=== PATIENT | male | born 1965 | race Caucasian/White ===

== ENCOUNTER → 2016-09-18 | Outpatient (CLI) | payer BC ==
[~2016-09-18] MED LIST: ALBU18002 INH; ALL180 PO; AMLO-110 PO; ANDROGEL EXT; ASPEC81 PO; ASPI81TA21 PO; ASPI81TA28 PO; CETI10TA84 PO; CHOL2000 PO; COEN1CAP28 PO; CZR50 PO; DILT-115 PO; FARXIGA PO; INSPMPNVLG; INSULIN PUMP; LEVO125T5 PO; LEVO150T9 PO; LEVO200T PO; LOSA1TAB38 PO; MISCCAP80 PO; MOME50SP5; MULT-506 PO; MULTTAB58 PO; PHEN15CA PO; PRAV20TA PO; PRVC10 PO; SIMV5TAB2 PO; SYNUNK PO; TRIA1SPR4 NAE; TRIA37.5 PO; VALS320T PO; VITACAP37 PO; VITAMIN PO
[2016-09-18 17:20] LABS: CHOLESTEROL/HDL RATIO 2.3
[2016-09-18 17:26] LABS: THYROID STIMULATING HORMONE 3.55 uIu/ml (0.300-4.500)
[2016-09-19 06:44] LABS: ESTIMATED AVERAGE GLUCOSE 137 mg/dl; HA1C FLAG Normal (Normal)
== END | disposition home or self-care (01) ==
LOC: C.LAB1850 15:36
PROVIDERS: ATTEND Internal Medicine
DX: E03.9 Hypothyroidism, unspecified (principal); E10.9 Type 1 diabetes mellitus without complications; E78.5 Hyperlipidemia, unspecified

== ENCOUNTER → 2016-10-17 | Outpatient (CLI) | payer BC ==
[~2016-10-17] MED LIST changes: +LEVO125T4 PO; -LEVO125T5 PO; -PHEN15CA PO; +PHEN1CAP PO
[2016-10-17 13:04] LABS: BLOOD UREA NITROGEN 16 mg/dl (7-18); BUN/CREATININE RATIO 9.2 (10-20); CALCIUM 9.5 mg/dl (8.5-10.1); CARBON DIOXIDE 27 mmol/L (21-32); CHLORIDE 84 mmol/L (98-107); GLUCOSE 192 mg/dl (70-99); POTASSIUM 5.1 mmol/L (3.5-5.1); SODIUM 121 mmol/L (136-145)
== END | disposition home or self-care (01) ==
LOC: C.LABBFT 10:39
PROVIDERS: ATTEND Internal Medicine
DX: I10 Essential (primary) hypertension (principal)

== ENCOUNTER 2016-10-20 14:48 | Inpatient (IN) | payer BC ==
[~2016-10-20] VITALS: Ht 177.8 cm; Wt 129.4 kg
[~2016-10-20 14:48] MED LIST changes: -ALBU18002 INH; -ASPI81TA21 PO; -ASPI81TA28 PO; -CETI10TA84 PO; -CHOL2000 PO; -COEN1CAP28 PO; -DILT-115 PO; -FARXIGA PO; -INSPMPNVLG; -LEVO125T4 PO; -LEVO150T9 PO; -LEVO200T PO; -LOSA1TAB38 PO; -MISCCAP80 PO; -MULTTAB58 PO; -PHEN1CAP PO; -PRAV20TA PO; -PRVC10 PO; -TRIA1SPR4 NAE; -TRIA37.5 PO; -VALS320T PO; -VITACAP37 PO; -VITAMIN PO
[2016-10-20] MEDS ORDERED: SODIUM CHLORIDE 0.9% 1000ML 1,000 ML IV STA (15:37)
--- NOTE | 2016-10-20 15:47 | EMERGENCY ROOM VISIT NOTE ---
History Report prepared by Anuradha: Linda Mitchell Under the Supervision of: Dr. Elton Morales D.O. First contact with patient: 15:29 Chief Complaint: ABNORMAL LABS Stated Complaint: LOW SODIUM LEVELS TOLD TO REPORT TO ER History of Present Illness The patient is a 51 year old male who presents to the Emergency Room with complaints of persistent, worsening abnormal labs that were drawn Thursday and then repeated today. He currently rates his discomfort as an 8/10 in severity. The patient states that Thursday he had routine blood work ordered by Dr. Jimenez. He states that he was instructed to have his blood work redrawn today because his labs showed hyponatremia. The patient states that his Sodium level was 117 on Thursday and 6 today. He notes chronic lymphedema to his bilateral lower extremities. The patient states that Dr. Jimenez recently doubled his blood pressure medication that has a diuretic in it. He notes a history of insulin dependent diabetes. The patient denies any headache, shortness of breath, chest pain, nausea or vomiting. Source of History: patient Onset: today Position: other (global) Symptom Intensity: 8/10 Quality: other (abnormal labs) Timing: worsening, other (persistent) Associated Symptoms: No SOB, No chest pain, No headache, No nausea, No vomiting Note: Associated Symptoms: increase in blood pressure medications. Review of Systems See HPI for pertinent positives & negatives. A total of 10 systems reviewed and were otherwise negative. Past Medical & Surgical Medical Problems: (1) PEPE, hyponatremia (2) Diabetes (3) Heart disease Surgical Problems: (1) S/P cholecystectomy (2) S/P hernia repair (3) Status post hernia repair Family History Cancer Diabetes mellitus Hypertension Social History Smoking Status: Never Smoker Smokeless Tobacco Use: No Alcohol Use: occasionally Marital Status: Housing Status: lives with significant other Occupation Status: employed Current/Historical Medications Scheduled Aspirin (Aspirin Ec), 81 MG PO DAILY Aspirin Enteric Coated (Ecotrin Or Generic), 81 MG PO DAILY Cetirizine (Zyrtec), 10 MG PO DAILY Cholecalciferol (Vitamin D3), 2,000 UNITS PO DAILY Coenzyme Q10 (Ubidecarenone) (Co Q10), 100 MG PO DAILY Diltiazem Hcl Ext Rel (Tiazac), 240 MG PO QAM Insulin Aspart (novoLOG INSULIN PUMP ), 1 EA N/A UD Levothyroxine Sodium (Levothyroxine Sodium), 300 MCG PO DAILY Multivitamin (Multivitamin), 1 TAB PO DAILY Phentermine Hcl (Phentermine Hcl), 1 CAP PO DAILY Pravastatin (Pravachol ), 20 MG PO DAILY Probiotic Product (Probiotic), 1 CAP PO DAILY Triamterene/Hctz (Dyazide 37.5MG/25MG), 2 CAP PO DAILY Valsartan (Diovan), 320 MG PO DAILY Vitamin E (E-400), 400 UNITS PO DAILY Scheduled PRN Triamcinolone Acetonide (Nasal (Nasacort Allergy 24Hr), 2 SPRAYS PERLA DAILY PRN for ALLERGIC REACTION Allergies Coded Allergies: Penicillins (Verified Allergy, Intermediate, FACIAL RASH, 10/20/16) Physical Exam Vital Signs Date Time Temp Pulse Resp B/P Pulse Ox O2 Delivery O2 Flow Rate FiO2 10/20/16 18:09 85 23 151/78 96 Room Air 10/20/16 16:50 84 18 169/87 98 Room Air 10/20/16 16:22 88 10/20/16 14:58 37.1 87 18 149/83 100 Room Air Physical Exam GENERAL: Patient is awake, alert, and in no acute distress. Patient is resting comfortably and showing no signs of anxiety EYES: The conjunctivae are clear. The pupils are round and reactive. EARS, NOSE, MOUTH AND THROAT: The nose is without any evidence of any deformity. Mucous membranes are moist tongue is midline NECK: The neck is nontender and supple. RESPIRATORY: Normal respiratory effort is noted there is no evidence of wheezing rhonchi or rales CARDIOVASCULAR: Regular rate and rhythm noted there no murmurs rubs or gallops normal S1 normal S2 GASTROINTESTINAL: The abdomen is soft. Bowel sounds are present in all quadrants. Abdomen is nontender MUSCULOSKELETAL/EXTREMITIES: There is no evidence of gross deformity full range of motion is noted in the hips and shoulders SKIN: There is no obvious evidence of any rash. There are no petechiae, pallor or cyanosis noted. NEUROLOGIC: Patient is awake alert and oriented x3 strength is symmetric patellar reflexes are 2+ bilaterally. Patellar tendon reflexes are 1+ bilaterally. Medical Decision & Procedures ER Provider Diagnostic Interpretation: X-ray results as stated below per interpretation by me and the radiologist. CHEST ONE VIEW PORTABLE CLINICAL HISTORY: abnormal labs COMPARISON STUDY: 02/19/2016 FINDINGS: The cardiac and mediastinal contours are normal. There is no evidence of focal pulmonary consolidation. There is no evidence of failure. No pleural effusions are visualized.[ IMPRESSION: No active disease in the chest. Electronically signed by: Woo Ritchie M.D. 10/20/2016 4:08 PM Dictated Date/Time: 10/20/2016 4:08 PM Laboratory Results 10/20/16 15:53 Red Blood Count 3.77, Mean Corpuscular Volume 96.6, Mean Corpuscular Hemoglobin 36.9, Mean Corpuscular Hemoglobin Concent 38.2, Mean Platelet Volume 9.0, Neutrophils (%) (Auto) 67.3, Lymphocytes (%) (Auto) 17.5, Monocytes (%) (Auto) 13.4, Eosinophils (%) (Auto) 1.2, Basophils (%) (Auto) 0.4, Neutrophils # (Auto ) 6.29, Lymphocytes # (Auto) 1.64, Monocytes # (Auto) 1.25, Eosinophils # (Auto ) 0.11, Basophils # (Auto) 0.04 10/20/16 15:53 Test 10/20/16 15:53 10/20/16 16:45 10/20/16 17:05 White Blood Count 9.35 K/uL (4.8-10.8) Red Blood Count 3.77 M/uL (4.7-6.1) Hemoglobin 13.9 g/dL (14.0-18.0) Hematocrit 36.4 % (42-52) Mean Corpuscular Volume 96.6 fL (80-100) Mean Corpuscular Hemoglobin 36.9 pg (25-34) Mean Corpuscular Hemoglobin Concent 38.2 g/dl (32-36) Platelet Count 237 K/uL (130-400) Mean Platelet Volume 9.0 fL (7.4-10.4) Neutrophils (%) (Auto) 67.3 % Lymphocytes (%) (Auto) 17.5 % Monocytes (%) (Auto) 13.4 % Eosinophils (%) (Auto) 1.2 % Basophils (%) (Auto) 0.4 % Neutrophils # (Auto) 6.29 K/uL (1.4-6.5) Lymphocytes # (Auto) 1.64 K/uL (1.2-3.4) Monocytes # (Auto) 1.25 K/uL (0.11-0.59) Eosinophils # (Auto) 0.11 K/uL (0-0.5) Basophils # (Auto) 0.04 K/uL (0-0.2) RDW Standard Deviation 41.8 fL (36.4-46.3) RDW Coefficient of Variation 11.9 % (11.5-14.5) Immature Granulocyte % (Auto) 0.2 % Immature Granulocyte # (Auto) 0.02 K/uL (0.00-0.02) Red Blood Cell Morphology Unremarkable Anion Gap 12.0 mmol/L (3-11) Est Creatinine Clear Calc Drug Dose 70.3 ml/min Estimated GFR () 53.3 Estimated GFR (Non- 46.0 BUN/Creatinine Ratio 8.5 (10-20) Calcium Level 9.3 mg/dl (8.5-10.1) Total Bilirubin 1.0 mg/dl (0.2-1) Aspartate Amino Transf (AST/SGOT) 183 U/L (15-37) Alanine Aminotransferase (ALT/SGPT) 142 U/L (12-78) Alkaline Phosphatase 166 U/L (45-117) Total Creatine Kinase 115 U/L (39-308) Creatine Kinase MB 1.5 ng/ml (0.5-3.6) Creatine Kinase MB Ratio 1.3 (0-3.0) Troponin I < 0.015 ng/ml (0-0.045) Total Protein 8.0 gm/dl (6.4-8.2) Albumin 4.0 gm/dl (3.4-5.0) Lipase 147 U/L (73-393) Thyroid Stimulating Hormone (TSH) 0.083 uIu/ml (0.300-4.500) Free Thyroxine 2.52 ng/dl (0.80-1.60) Chemistry Specimen Hemolysis Prothrombin Time 11.8 SECONDS (9.0-12.0) Prothromb Time International Ratio 1.1 (0.9-1.1) Activated Partial Thromboplast Time 27.8 SECONDS (21.0-31.0) Partial Thromboplastin Ratio 1.1 Direct Bilirubin 0.4 mg/dl (0-0.2) Urine Color YELLOW Urine Appearance CLEAR (CLEAR) Urine pH 7.0 (4.5-7.5) Urine Specific Bradford 1.009 (1.000-1.030) Urine Protein NEG (NEG) Urine Glucose (UA) 2+ (NEG) Urine Ketones NEG (NEG) Urine Occult Blood NEG (NEG) Urine Nitrite NEG (NEG) Urine Bilirubin NEG (NEG) Urine Urobilinogen NEG (NEG) Urine Leukocyte Esterase NEG (NEG) Laboratory results per my review. Medications Administered Medications (Trade) Dose Ordered Sig/Mike Route Start Time Stop Time Status Last Admin Dose Admin Sodium Chloride (Nss 1000ml) 1,000 ml @ 999 mls/hr Q1H1M STAT IV 10/20/16 15:37 10/20/16 16:37 DC 10/20/16 15:59 999 MLS/HR ECG Indication: other (abnormal labs) Rate (beats per minute): 90 Rhythm: normal sinus Findings: no ectopy, other (no acute ST segment abnormalities) Comparison ECG Date: no prior available ED Course 1531: The patient was evaluated in room B2. A complete history and physical examination were performed. I discussed the treatment plan with him. He verbalized complete understanding and agreement. He will be evaluated for further treatment. 1537: Ordered Sodium Chloride 1000 ml @ 999 mls/hr IV. 1600: I discussed the patient's case with ANGELA Galeana. He is going to evaluate the patient for further treatment. Medical Decision Differential diagnosis: Etiologies such as metabolic, infection, hypo/hyperglycemia, electrolyte abnormalities, cardiac sources, intracerebral event, toxicologic, neurologic, as well as others were entertained. Nursing notes reviewed. The patient's previous electronic medical records reviewed. The patient's medication list was reviewed. The patient is a 51-year-old male who presented to the emergency department for an evaluation of a symptomatic hyponatremia. He appears to have very significant hypernatremia on laboratory studies which was confirmed in the emergency department. He was sent by his primary care physician for admission and further evaluation. The patient was treated with IV fluids in the emergency department. I discussed the patient's laboratory studies with him. At this time I feel this is likely represented to changes in his medications. I discussed his case with the on-call [facility] hospitalist group. They've agreed to evaluate the patient in the emergency department for further management and disposition. Consults Time Called: 1600 Consulting Physician: ANGELA Galeana Returned Call: 1600 I discussed the patient's case with ANGELA Galeana. He is going to evaluate the patient for further treatment. Impression Primary Impression: Hyponatremia Scribe Attestation The scribe's documentation has been prepared under my direction and personally reviewed by me in its entirety. I confirm that the note above accurately reflects all work, treatment, procedures, and medical decision making performed by me. Departure Information Dispostion Being Evaluated By Hospitalist Charles Sam M.D. (PCP)
--- NOTE | 2016-10-20 16:10 | DIAGNOSTIC IMAGING REPORT ---
CHEST ONE VIEW PORTABLE CLINICAL HISTORY: abnormal labs COMPARISON STUDY: 02/19/2016 FINDINGS: The cardiac and mediastinal contours are normal. There is no evidence of focal pulmonary consolidation. There is no evidence of failure. No pleural effusions are visualized.[ IMPRESSION: No active disease in the chest. Electronically signed by: Woo Ritchie M.D. 10/20/2016 4:08 PM Dictated Date/Time: 10/20/2016 4:08 PM
[2016-10-20] MEDS ORDERED: INSPMPNVLG (16:13)
[2016-10-20] MEDS ORDERED: ASPI81TA28 PO (16:13)
[2016-10-20] MEDS ORDERED: LEVO150T9 PO (16:16)
[2016-10-20] MEDS ORDERED: PHEN1CAP PO (16:17)
[2016-10-20] MEDS ORDERED: MISCCAP80 PO (16:21)
[2016-10-20] MEDS ORDERED: ASPI81TA21 PO (16:21)
[2016-10-20] MEDS ORDERED: DILT-115 PO (16:22)
[2016-10-20] MEDS ORDERED: COEN1CAP28 PO (16:24)
[2016-10-20] MEDS ORDERED: CETI10TA84 PO (16:25)
[2016-10-20] MEDS ORDERED: PRAV20TA PO (16:26)
[2016-10-20 16:27] LABS: HEMATOCRIT 36.4 % (42-52); MEAN CELL VOLUME 96.6 fL (80-100); MEAN CORPUSCULAR HEMOGLOBIN 36.9 pg (25-34); MEAN CORPUSCULAR HGB CONC 38.2 g/dl (32-36); PLATELET COUNT 237 K/uL (130-400); RED BLOOD COUNT 3.77 M/uL (4.7-6.1); WHITE BLOOD COUNT 9.35 K/uL (4.8-10.8)
[2016-10-20] MEDS ORDERED: TRIA37.5 PO (16:28)
[2016-10-20] MEDS ORDERED: VALS320T PO (16:30)
[2016-10-20] MEDS ORDERED: CHOL2000 PO (16:31)
[2016-10-20] MEDS ORDERED: VITACAP37 PO (16:32)
[2016-10-20 16:41] LABS: BASO % 0.4 %; BASO ABS # 0.04 K/uL (0-0.2); COMPLETE YES; EOS % 1.2 %; IG% 0.2 %; LYMPH % 17.5 %; LYMPH ABS # 1.64 K/uL (1.2-3.4); MONO % 13.4 %; NEUT % 67.3 %
[2016-10-20] MEDS ORDERED: TRIA1SPR4 NAE (16:42)
[2016-10-20 16:45] LABS: ALKALINE PHOSPHATASE 166 U/L (45-117); AST/SGOT 183 U/L (15-37); BLOOD UREA NITROGEN 14 mg/dl (7-18); BUN/CREATININE RATIO 8.5 (10-20); CALCIUM 9.3 mg/dl (8.5-10.1); CARBON DIOXIDE 26 mmol/L (21-32); CHLORIDE 83 mmol/L (98-107); CKMB/CK RATIO 1.3 (0-3.0); GLUCOSE 139 mg/dl (70-99); POTASSIUM 4.9 mmol/L (3.5-5.1); SODIUM 121 mmol/L (136-145)
[2016-10-20] MEDS ORDERED: ACETAMINOPHEN 325 MG TAB PO PRN (16:45)
[2016-10-20] MEDS ORDERED: ONDANSETRON INJ 2 MG/ML 2 ML VIAL IV PRN (16:45)
[2016-10-20] MEDS ORDERED: ENOXAPARIN 40 MG/0.4 ML SYR SQ SCH (16:45)
[2016-10-20] MEDS ORDERED: NovoLOG INSULIN PUMP SCH (16:45)
[2016-10-20 16:48] LABS: THYROID STIMULATING HORMONE 0.083 uIu/ml (0.300-4.500)
[2016-10-20 16:52] LABS: ALT/SGPT 142 U/L (12-78)
[2016-10-20] MEDS ORDERED: GLUCOSE 10 TABS/TUBE PO PRN (17:00)
[2016-10-20] MEDS ORDERED: DEXTROSE 50% 50 ML SYR IV PRN (17:00)
[2016-10-20] MEDS ORDERED: GLUCOSE 40% GEL 15 GM TUBE PO PRN (17:00)
[2016-10-20] MEDS ORDERED: GLUCAGON FOR INJ 1 MG VIAL SQ PRN (17:00)
[2016-10-20] MEDS ORDERED: PHARMACY GLYCEMIC MGMT CONSULT PRN (17:02)
[2016-10-20 17:17] LABS: URINE APPEARANCE CLEAR (CLEAR); URINE BILIRUBIN NEG (NEG); URINE COLOR YELLOW; URINE NITRITE NEG (NEG); URINE SPECIFIC GRAVITY 1.009 (1.000-1.030); UROBILINOGEN NEG (NEG)
[2016-10-20 17:18] LABS: MANUAL MICROSCOPIC REQUIRED? NO; REVIEW REQ? NO
[2016-10-20 17:20] LABS: INR 1.1 (0.9-1.1); PARTIAL THROMBOPLASTIN RATIO 1.1; PROTHROMBIN TIME (PATIENT) 11.8 SECONDS (9.0-12.0)
--- NOTE | 2016-10-20 17:27 | History and Physical ---
History & Physical Date & Time of Service: Oct 20, 2016 at 16:56 Chief Complaint: Low Sodium Levels Told To Report To Er Primary Care Physician: Charles Jimenez M.D. History of Present Illness This is a 51 yo M with PMHx of DM type I on insulin pump, HTN, hypercholesterolemia, hepatic steatosis, hypothyroidism, morbid obesity, peripheral neuropathy, diabetic retinopathy, MANFRED on nocturnal cpap, vitamin D deficiency who presents after lab results from outpatient clinic showed hyponatremia and elevated Cr. Pt denies any acute complaints. Na+= 117 on 10/20 and Cr. is elevated at 1.8 with baseline around 1.1. The patient was recently seen by his PCP, Dr. Jimenez in early September where Triamterene/HCTZ 37.5-50mg was doubled from 1 cap to 2 caps daily. The patient is unable to tell me what other blood pressure medications he is currently taking. He was also taking qsymia for weight loss. He did not tolerate the topamax component of this medication so was switched to phentermine 15 mg alone. Past Medical/Surgical History Medical Problems: (1) Diabetes Type 1 on insulin pump Status: Chronic (2) Heart disease Status: Chronic 3. Hypercholesterolemia 4. Obstructive sleep apnea 5. Hypothyroidism 6. Peripheral neuropathy 7. Diabetic rentinopathy 8. Hepatic steatosis 9. Vit D. Deficiency Surgical Problems: (1) S/P cholecystectomy Status: Resolved (2) S/P hernia repair Status: Resolved (3) Status post hernia repair Status: Resolved Family History Cancer Diabetes mellitus Hypertension Social History Smoking Status: Never Smoker Smokeless Tobacco Use: No Alcohol Use: socially Drug Use: none Marital Status: Housing status: lives with family Occupational Status: employed Immunizations History of Influenza Vaccine: Unknown History of Tetanus Vaccine?: Unknown History of Pneumococcal: Unknown History of Hepatitis B Vaccine: Unknown Multi-Drug Resistant Organisms History of MDRO: No Allergies Coded Allergies: Penicillins (Verified Allergy, Intermediate, FACIAL RASH, 10/20/16) Home Medications Scheduled Aspirin (Aspirin Ec), 81 MG PO DAILY Aspirin Enteric Coated (Ecotrin Or Generic), 81 MG PO DAILY Cetirizine (Zyrtec), 10 MG PO DAILY Cholecalciferol (Vitamin D3), 2,000 UNITS PO DAILY Coenzyme Q10 (Ubidecarenone) (Co Q10), 100 MG PO DAILY Diltiazem Hcl Ext Rel (Tiazac), 240 MG PO QAM Insulin Aspart (novoLOG INSULIN PUMP ), 1 EA N/A UD Levothyroxine Sodium (Levothyroxine Sodium), 300 MCG PO DAILY Multivitamin (Multivitamin), 1 TAB PO DAILY Phentermine Hcl (Phentermine Hcl), 1 CAP PO DAILY Pravastatin (Pravachol ), 20 MG PO DAILY Probiotic Product (Probiotic), 1 CAP PO DAILY Triamterene/Hctz (Dyazide 37.5MG/25MG), 2 CAP PO DAILY Valsartan (Diovan), 320 MG PO DAILY Vitamin E (E-400), 400 UNITS PO DAILY Scheduled PRN Triamcinolone Acetonide (Nasal (Nasacort Allergy 24Hr), 2 SPRAYS PERLA DAILY PRN for ALLERGIC REACTION Review of Systems Constitutional: No chills, No fever, No sweats ENT: No sore throat Respiratory: No dyspnea on exertion, No shortness of breath Cardiovascular: No chest pain, No orthopnea, No palpitations Abdomen: No constipation, No diarrhea, No nausea, No pain, No vomiting Musculoskeletal: + swelling, No calf pain Genitourinary - Male: No dysuria, No hematuria Neurologic: + problem reported (+diabetic neuropathy), No balance problems, No numbness/tingling Integumentary: No itch, No rash Physical Exam Vital Signs Date Time Temp Pulse Resp B/P Pulse Ox O2 Delivery O2 Flow Rate FiO2 10/20/16 16:22 88 10/20/16 14:58 37.1 87 18 149/83 100 Room Air General Appearance: WD/WN, no apparent distress, + obese Head: normocephalic, atraumatic, + pertinent finding (flushed face) Eyes: PERRL, EOMI ENT: hearing grossly normal, pharynx normal Neck: supple, no JVD Respiratory/Chest: chest non-tender, lungs clear, normal breath sounds, no respiratory distress, no accessory muscle use Cardiovascular: regular rate, rhythm, normal peripheral pulses, + tachycardia ( mild, HR=90) Abdomen/GI: normal bowel sounds, non tender, no organomegaly, + distended Back: normal inspection Extremities/Musculoskelatal: no calf tenderness, + pedal edema (2+ pitting edema up to knees bilaterally) Neurologic/Psych: alert, normal mood/affect, oriented x 3 Skin: normal color, warm/dry Diagnostics Laboratory Results Results Past 24 Hours Test 10/20/16 15:53 10/20/16 16:24 Range/Units White Blood Count 9.35 4.8-10.8 K/uL Red Blood Count 3.77 4.7-6.1 M/uL Hemoglobin 13.9 14.0-18.0 g/dL Hematocrit 36.4 42-52 % Mean Corpuscular Volume 96.6 80-100 fL Mean Corpuscular Hemoglobin 36.9 25-34 pg Mean Corpuscular Hemoglobin Concent 38.2 32-36 g/dl Platelet Count 237 130-400 K/uL Mean Platelet Volume 9.0 7.4-10.4 fL Neutrophils (%) (Auto) 67.3 % Lymphocytes (%) (Auto) 17.5 % Monocytes (%) (Auto) 13.4 % Eosinophils (%) (Auto) 1.2 % Basophils (%) (Auto) 0.4 % Neutrophils # (Auto) 6.29 1.4-6.5 K/uL Lymphocytes # (Auto) 1.64 1.2-3.4 K/uL Monocytes # (Auto) 1.25 0.11-0.59 K/uL Eosinophils # (Auto) 0.11 0-0.5 K/uL Basophils # (Auto) 0.04 0-0.2 K/uL RDW Standard Deviation 41.8 36.4-46.3 fL RDW Coefficient of Variation 11.9 11.5-14.5 % Immature Granulocyte % (Auto) 0.2 % Immature Granulocyte # (Auto) 0.02 0.00-0.02 K/uL Red Blood Cell Morphology Unremarkable Sodium Level 121 136-145 mmol/L Potassium Level 4.9 3.5-5.1 mmol/L Chloride Level 83 98-107 mmol/L Carbon Dioxide Level 26 21-32 mmol/L Anion Gap 12.0 3-11 mmol/L Blood Urea Nitrogen 14 7-18 mg/dl Creatinine 1.70 0.60-1.40 mg/dl Est Creatinine Clear Calc Drug Dose 70.3 ml/min Estimated GFR () 53.3 Estimated GFR (Non- 46.0 BUN/Creatinine Ratio 8.5 10-20 Random Glucose 139 70-99 mg/dl Calcium Level 9.3 8.5-10.1 mg/dl Total Bilirubin 1.0 0.2-1 mg/dl Direct Bilirubin 0-0.2 mg/dl Aspartate Amino Transf (AST/SGOT) 183 15-37 U/L Alanine Aminotransferase (ALT/SGPT) 142 12-78 U/L Alkaline Phosphatase 166 45-117 U/L Total Creatine Kinase 115 39-308 U/L Creatine Kinase MB 1.5 0.5-3.6 ng/ml Creatine Kinase MB Ratio 1.3 0-3.0 Troponin I < 0.015 0-0.045 ng/ml Total Protein 8.0 6.4-8.2 gm/dl Albumin 4.0 3.4-5.0 gm/dl Lipase 147 73-393 U/L Thyroid Stimulating Hormone (TSH) 0.083 0.300-4.500 uIu/ml Free Thyroxine 2.52 0.80-1.60 ng/dl Chemistry Specimen Hemolysis Diagnostic Radiology Date of Service: 10/20/16 CHEST ONE VIEW PORTABLE ]CLINICAL HISTORY: abnormal labs COMPARISON STUDY: 02/19/2016 FINDINGS: The cardiac and mediastinal contours are normal. There is no evidence of focal pulmonary consolidation. There is no evidence of failure. No pleural effusions are visualized.[ IMPRESSION: No active disease in the chest. Electronically signed by: Woo Ritchie M.D. 10/20/2016 4:08 PM Impression Assessment and Plan This is a 51 yo M with PMHx of DM type I on insulin pump, HTN, hypercholesterolemia, hepatic steatosis, hypothyroidism, morbid obesity, peripheral neuropathy, diabetic retinopathy, MANFRED on nocturnal cpap, vitamin D deficiency who presents after lab results from outpatient clinic showed hyponatremia and elevated Cr. PEPE, hyponatremia - Admit to med/surg - Likely secondary to triamterene/HCTZ dosage increase in the past month causing dehydration- will hold this medication for now. Will need BP medication review during admission. - Rehydrate with NSS at 125mL/hr x 12 hours. - Pt has peripheral edema 2+ pitting so will need to closely monitor fluid status. Last ECHO was in 2013 here was normal. Pt reports having one done last month as an outpatient and reports it was normal. - Hold nephrotoxins - Follow am labs HTN - Outpatient meds include: triamterene/hctz 37.5 mg, 2 caps QAM, losartan potassium 100 mg QD, diltiazem hcl 240 mg QAM per most recent note by Mary Agrawal in [employer] - confirming with med sterile processing technician - Cont ASA 81 mg daily DM type I - Continue insulin pump - Consult pharmacy for insulin pump refill as his will run out this evening, ACHS checks - diabetic type I diet Hypothyroidism - Cont levothyroxine 300 mcg daily MANFRED - Cont nocturnal cpap- pt will get his own from home Hypercholesterolemia - Cont pt a pravastatin 20 mg daily Morbid Obesity - Cont phentermine 15 mg daily for weight loss - Educated on diet and exercise - OOB as tolerated DVT ppx: heparin sq CODE STATUS: FULL CODE Disposition: From home Level of Care Med/Surg Advanced Directives Existing Advance Directive: No Existing Living Will: No Existing Power of Cable Coverer: No Existing Health Care Proxy: No Resuscitation Status FULL RESUSCITATION VTE Prophylaxis VTE Risk Assessment Done? Y/N: Yes Risk Level: Low Reviewed: Pt Seen/Exam by Me, RN Notes, HO Notes, Prior Records, Labs History I have seen and examined the patient, I agree with PA H&P with some modifications as below This is a 51 yo M with PMHx of DM type I on insulin pump, HTN, hypercholesterolemia, hepatic steatosis, hypothyroidism, morbid obesity, peripheral neuropathy, diabetic retinopathy, MANFRED on nocturnal cpap, vitamin D deficiency who presents after lab results from outpatient clinic showed hyponatremia and elevated Creatinine. Constitutional: denies: chills Respiratory: negative: cough Cardiovascular: denies chest pain Gastrointestinal/Abdominal: negative: abdominal pain Genitourinary: negative discharge Musculoskeletal: negative: back pain Neurological/Psych: negative: anxiety Hematologic/Lymphatic: negative: anemia General Appearance: WD/WN, no apparent distress Eye Exam: bilateral eye normal inspection Ears, Nose, Throat: hearing grossly normal, pharynx normal Neck: non-tender, supple Respiratory: chest non-tender, no respiratory distress Cardiovascular: normal peripheral pulses, no edema Gastrointestinal: normal bowel sounds, soft Extremities: normal range of motion, normal inspection Neurologic/Psychiatric: alert, normal mood/affect Skin Characteristics: normal color Assessment/Plan This is a 51 yo M with PMHx of DM type I on insulin pump, HTN, hypercholesterolemia, hepatic steatosis, hypothyroidism, morbid obesity, peripheral neuropathy, diabetic retinopathy, MANFRED on nocturnal cpap, vitamin D deficiency who presents after lab results from outpatient clinic showed hyponatremia and elevated Cr. hyponatremia Likely secondary to triamterene/HCTZ dosage increase in the past month causing dehydration will hold this medication for now. Will need BP medication review during admission. Rehydrate with NSS at 125mL/hr x 12 hours. - Pt has peripheral edema 2+ pitting so will need to closely monitor fluid status. Last ECHO was in 2013 here was normal. Pt reports having one done last month as an outpatient and reports it was normal. check urine NA and urine creatinine check uric acid PEPE, dehydration, start NSS HTN Outpatient meds include: triamterene/hctz 37.5 mg, 2 caps QAM, diltiazem hcl 240 mg QAM per most recent note by Mary Agrawal in [employer] Cont ASA 81 mg daily DM type I Continue insulin pump Consult pharmacy for insulin pump refill as his will run out this evening, ACHS checks diabetic type I diet Hypothyroidism Cont levothyroxine 300 mcg daily MANFRED Cont nocturnal cpap, pt will get his own from home Hypercholesterolemia Cont pravastatin 20 mg daily Morbid Obesity Cont phentermine 15 mg daily for weight loss Educated on diet and exercise OOB as tolerated DVT proph: heparin sq CODE STATUS: FULL CODE Disposition: From home case discussed with CHRISTIE Knight time spent 50 min
[2016-10-20 18:43] VITALS: BP 144/84; PULSE 81; TEMP 36.9; O2SAT 96
[2016-10-20] MEDS ORDERED: INSULIN ASPART 100 UNITS/ML VIAL SC PRN (19:00)
--- NOTE | 2016-10-20 19:07 | Pharmacy Progress Note ---
Glycemic Control Intl Consult Date of Service Oct 20, 2016. Scope Glycemic Pharmacist consulted by Dr Courtney Knight PA-C on 10/20/16 for glycemic control and to write orders per [facility] inpatient glycemic control protocol Objective Weight (Kilograms): 129.400 Accuchecks BSG (last 24hrs): Test 10/20/16 15:53 Random Glucose 139 mg/dl (70-99) Laboratory Data (last 24hrs) Test 10/20/16 15:53 Anion Gap 12.0 mmol/L BUN/Creatinine Ratio 8.5 Blood Urea Nitrogen 14 mg/dl Creatinine 1.70 mg/dl Potassium Level 4.9 mmol/L Sodium Level 121 mmol/L White Blood Count 9.35 K/uL Red Blood Count 3.77 M/uL Hemoglobin 13.9 g/dL Hematocrit 36.4 % Mean Corpuscular Volume 96.6 fL Mean Corpuscular Hemoglobin 36.9 pg Mean Corpuscular Hemoglobin Concent 38.2 g/dl Platelet Count 237 K/uL Mean Platelet Volume 9.0 fL Neutrophils (%) (Auto) 67.3 % Lymphocytes (%) (Auto) 17.5 % Monocytes (%) (Auto) 13.4 % Eosinophils (%) (Auto) 1.2 % Basophils (%) (Auto) 0.4 % Neutrophils # (Auto) 6.29 K/uL Lymphocytes # (Auto) 1.64 K/uL Monocytes # (Auto) 1.25 K/uL Eosinophils # (Auto) 0.11 K/uL Basophils # (Auto) 0.04 K/uL HbA1c 6.4% on 09/18/16 Recent Pertinent Medications Outpatient Anti-diabetic Regimen: * NovoLog Insulin pump * Total dose up to 180 units/day * Follows with [facility] - Dr Hui Assessment & Plan ASSESSMENT: * 51yo T1DM male with well controlled diabetes per recent A1c. Pt follows with [facility] & sees Dr Hui. * Pt is maintained on NovoLog insulin pump as an outpatient. Pt desires to manage his own BSGs with his insulin pump. He is NOT agreeable to holding insulin pump for admission and using SQ basal bolus insulin regimen per pharmacy dosing/titration. * Discussed insulin pump policy with patient * He will keep track of his BSGs and document boluses on flowsheet per policy * Pt understands that if he experiences frequent hypo/hyperglycemia that we may need to change to SQ basal bolus insulin regimen * Pt last changed his pump site 10/19/16. Site is patent and intact. is bringing in pump supplies. * Pt understands that pharmacy does not stock any pump supplies other than NovoLog to refill his pump if necessary. * Pt verbalized understanding of the above. PLAN FOR INPATIENT GLYCEMIC CONTROL: * Pt to manage own BSGs with personal insulin pump per outpatient settings. * Pharmacy will continue to monitor patient daily * Pharmacy may suggest transitioning to SQ basal bolus regimen for frequent hyper/hypoglycemia. * Please note that the plan above was derived based on current level of insulin resistance and hospital stress. These recommendations are appropriate for inpatient admission only. Plan of care upon discharge will need to be reassessed to avoid potential outpatient hypo/hyperglycemia. Thank you.
[2016-10-20] MEDS: SODIUM CHLORIDE 0.9% 1000ML 1,000 ML IV SCH (19:20)
[2016-10-20] MEDS: HEPARIN SOD 5000 UNIT/0.5 ML CARP SQ SCH (21:00)
[2016-10-20] MEDS: NovoLOG INSULIN PUMP SCH (21:35)
[2016-10-20 22:38] VITALS: BP 144/84; PULSE 81; TEMP 36.9; O2SAT 96; BMI 40.9
[2016-10-20 23:33] VITALS: BP 126/77; PULSE 84; TEMP 36.6; O2SAT 98
[2016-10-20 23:55] LABS: BUN/CREATININE RATIO 12.2 (10-20); CALCIUM 8.6 mg/dl (8.5-10.1); CREATININE 1.3 mg/dl (0.60-1.40); POTASSIUM 4.4 mmol/L (3.5-5.1)
[2016-10-21] MEDS: SODIUM CHLORIDE 0.9% 1000ML 1,000 ML IV SCH ×2 (01:09→09:19)
[2016-10-21] MEDS ORDERED: LEVOTHYROXINE 150 MCG TAB PO SCH (06:30)
[2016-10-21 07:05] VITALS: BP 121/76; PULSE 86; TEMP 36.6; O2SAT 99
[2016-10-21 07:22] LABS: BASO % 0.5 %; BASO ABS # 0.03 K/uL (0-0.2); COMPLETE YES; EOS % 2.9 %; HEMATOCRIT 36.4 % (42-52); IG% 0.3 %; LYMPH % 22.9 %; LYMPH ABS # 1.34 K/uL (1.2-3.4); MEAN CELL VOLUME 98.9 fL (80-100); MEAN CORPUSCULAR HEMOGLOBIN 36.1 pg (25-34); MEAN CORPUSCULAR HGB CONC 36.5 g/dl (32-36); MEAN PLATELET VOLUME 9.2 fL (7.4-10.4); MONO % 10.9 %; NEUT % 62.5 %; PLATELET COUNT 195 K/uL (130-400); RED BLOOD COUNT 3.68 M/uL (4.7-6.1); WHITE BLOOD COUNT 5.86 K/uL (4.8-10.8)
[2016-10-21 07:52] LABS: BUN/CREATININE RATIO 11.2 (10-20); CALCIUM 8.9 mg/dl (8.5-10.1); CREATININE 1.2 mg/dl (0.60-1.40); POTASSIUM 3.9 mmol/L (3.5-5.1)
[2016-10-21] MEDS ORDERED: CETIRIZINE HCL 10 MG TAB PO SCH (08:00)
[2016-10-21] MEDS ORDERED: ASPIRIN 81 MG ECTAB PO SCH (08:00)
[2016-10-21] MEDS ORDERED: MULTIVITAMIN TAB PO SCH (08:00)
[2016-10-21] MEDS ORDERED: PRAVASTATIN SOD 20 MG TAB PO SCH (08:00)
[2016-10-21] MEDS: NovoLOG INSULIN PUMP SCH (08:21)
[2016-10-21] MEDS: HEPARIN SOD 5000 UNIT/0.5 ML CARP SQ SCH (09:00)
[2016-10-21 11:10] VITALS: Ht 177.8 cm; Wt 129.4 kg
[2016-10-21] MEDS ORDERED: LOSA1TAB38 PO (11:46)
--- NOTE | 2016-10-21 11:59 | Discharge Instructions ---
Discharge Instructions Admission Reason for Admission: Felipe,Hponatremia Discharge Discharge Diagnosis / Problem: Hyponatremia Discharge Goals Goal(s): Improve function, Improve disease control, Learn about illness Activity Recommendations Activity Limitations: resume your previous activity . Instructions / Follow-Up Instructions / Follow-Up Hyponatremia (Low Sodium or Salt Level): - It appears that this is the result of the Dyazide medication used for your blood pressure as this as an element of a water pill to it. - We recommend you stop this medication at this time and discuss with your family doctor about reinstitution versus utilizing a different medication for blood pressure. - We recommend that you get blood work in the next couple of days to check your sodium level. You can do this at the place you normally get blood work and the results will be sent to your family doctor. -- A prescription for this blood work will be provided - Monitor for signs and symptoms of low sodium levels -- Nausea, Vomiting, Headache, Confusion, Fatigue/Tiredness, Muscle weakness/ cramping with the most serious being Seizures and Coma Acute Kidney Injury: - Your kidney numbers were elevated upon admission. This is commonly seen with a level of dehydration but has corrected to normal with the fluids you received. - The blood work to check you sodium level will also show your kidney function and will be evaluated at that time. Hypothyroidism: - Continue your Synthroid 300 mcg daily as prescribed - Of note your TSH (thyroid function) was low at 0.083 with your Free T4 high at 2.52 which suggests your medication may be too much - However we will defer this to your juke box mechanic and family doctor as this medication was recently adjusted - Recommend recheck in 6-8 weeks Follow-Up: - Please follow-up with your family doctor in 1 week - as well please discuss any medication adjustments with them as well. - Continue following with endocrinology for your diabetes and your hypothyroidism. Current Hospital Diet Patient's current hospital diet: Diabetes Type 1 Diet Discharge Diet Recommended Diet: Diabetes Type 1 Diet Pending Studies Studies pending at discharge: no Laboratory Results Hemoglobin A1c Test 09/18/16 15:47 Range/Units Estimated Average Glucose 137 mg/dl Hemoglobin A1c 6.4 H 4.5-5.6 % Lipid Panel Test 09/18/16 15:44 Range/Units Triglycerides Level 95 0-150 mg/dl Cholesterol Level 190 0-200 mg/dl HDL Cholesterol 83 mg/dl Cholesterol/HDL Ratio 2.3 LDL Cholesterol, Calculated 88 mg/dl Medical Emergencies . Who to Call and When: Medical Emergencies: If at any time you feel your situation is an emergency, please call 911 immediately. . Non-Emergent Contact Non-Emergency issues call your: Primary Care Provider Call Non-Emergent contact if: you have any medication questions . . "Provider Documentation" section prepared by Kelsey Retana. VTE Core Measure Inpt VTE Proph given/why not?: Unfractionated heparin SQ
[2016-10-21 12:46] VITALS: BP 121/76; PULSE 86; TEMP 36.6; O2SAT 99
--- NOTE | 2016-10-21 13:59 | Discharge Summary ---
Discharge Summary Admission Date: Oct 20, 2016 at 16:42 Discharge Date: Oct 21, 2016 Discharge Disposition: Home Principal Diagnosis: Hyponatremia and Acute Kidney Injury Problems/Secondary Diagnoses: 1. Type 1 Diabetes Mellitus on Insulin Pump 2. Hypercholesterolemia 3. Obstructive Sleep Apnea 4. Hypothyroidism 5. Diabetic Peripheral Neuropathy 6. Diabetic Retinopathy 7. Hepatic Steatosis 8. Vitamin D Deficiency 9. Hypertension Immunizations: Have You Had Influenza Vaccine: Unknown History of Tetanus Vaccine?: Unknown History of Pneumococcal: Unknown History of Hepatitis B Vaccine: Unknown Procedures: 1. CHEST ONE VIEW PORTABLE CLINICAL HISTORY: abnormal labs COMPARISON STUDY: 02/19/2016 FINDINGS: The cardiac and mediastinal contours are normal. There is no evidence of focal pulmonary consolidation. There is no evidence of failure. No pleural effusions are visualized.[ IMPRESSION: No active disease in the chest. Consultations: 1. Pharmacy - Insulin Pump Assistance Medication Reconciliation Continued Medications: Aspirin (Aspirin Ec) 81 Mg Tab 81 MG PO DAILY Cetirizine (Zyrtec) 10 Mg Tab 10 MG PO DAILY, TAB Cholecalciferol (Vitamin D3) 2,000 Unit Cap 2000 UNITS PO DAILY Coenzyme Q10 (Ubidecarenone) (Co Q10) 50 Mg Cap 100 MG PO DAILY, CAP Diltiazem Hcl Ext Rel (Tiazac) 240 Mg Capcr 240 MG PO QAM, CAP Insulin Aspart (novoLOG INSULIN PUMP ) 1 Ea Inj 1 EA N/A UD, EA Levothyroxine Sodium (Levothyroxine Sodium) 150 Mcg Tab 300 MCG PO DAILY, TAB Losartan Potassium (Cozaar) 100 Mg Tab 1 TAB PO DAILY for 30 Days, #30 TAB 5 Refills Multivitamin (Multivitamin) Tab 1 TAB PO DAILY, 0 Refills Phentermine Hcl (Phentermine Hcl) 15 Mg Cap 1 CAP PO DAILY, CAP TAKE 2 HOURS AFTER BREAKFAST DAILY. Pravastatin (Pravachol ) 20 Mg Tab 20 MG PO DAILY, TAB Probiotic Product (Probiotic) 1 Cap Cap 1 CAP PO DAILY Triamcinolone Acetonide (Nasal (Nasacort Allergy 24Hr) 55 Mcg/Act Spr 2 SPRAYS PERLA DAILY PRN for ALLERGIC REACTION Vitamin E (E-400) 400 Unit Cap 400 UNITS PO DAILY Discontinued Medications: Aspirin Enteric Coated (Ecotrin Or Generic) 81 Mg Tab 81 MG PO DAILY, TAB Triamterene/Hctz (Dyazide 37.5MG/25MG) Cap 2 CAP PO DAILY TWO CAPSULE DOSE Discharge Exam Review of Systems: Constitutional: + problem reported (Denies headache), No chills, No fever Eyes: No worsening of vision ENT: No nasal symptoms, No sore throat, No trouble swallowing Respiratory: No cough, No shortness of breath Cardiovascular: No chest pain Abdomen: No constipation, No diarrhea, No nausea, No pain, No vomiting Musculoskeletal: No calf pain Genitourinary - Male: No dysuria Neurologic: No numbness/tingling, No vertigo, No weakness Endocrine: No fatigue Hematologic / Lymphatic: No abnormal bleeding/bruising, No clotting problems Integumentary: No rash Physical Exam: General Appearance: WD/WN, no apparent distress, + pertinent finding (large abdominal girth and neck girth; face flush) Eyes: sclerae normal ENT: hearing grossly normal Neck: supple, no JVD, trachea midline Respiratory/Chest: lungs clear, normal breath sounds, no respiratory distress, no accessory muscle use Cardiovascular: regular rate, rhythm, no edema, no gallop Abdomen / GI: normal bowel sounds, non tender, soft Extremities: no calf tenderness, + swelling (bilat lower extremity to knee 1 + pitting edema) Neurologic/Psychiatric: no motor/sensory deficits, alert, normal mood/affect , oriented x 3 Skin: normal color, warm/dry Hospital Course ADMISSION: This is a 51 yo M with PMHx of DM type I on insulin pump, HTN, hypercholesterolemia, hepatic steatosis, hypothyroidism, morbid obesity, peripheral neuropathy, diabetic retinopathy, MANFRED on nocturnal cpap, vitamin D deficiency who presents after lab results from outpatient clinic showed hyponatremia and elevated Cr. Pt denies any acute complaints. Na+= 117 on 10/20 and Cr. is elevated at 1.8 with baseline around 1.1. The patient was recently seen by his PCP, Dr. Jimenez in early September where Triamterene/HCTZ 37.5-50mg was doubled from 1 cap to 2 caps daily. The patient is unable to tell me what other blood pressure medications he is currently taking. He was also taking qsymia for weight loss. He did not tolerate the topamax component of this medication so was switched to phentermine 15 mg alone. HOSPITAL COURSE: Mr. Castañeda was admitted due to hyponatremia with initial labs revealing Na of 117. Random urine sodium was obtained that was WNL. Suspicion placed for hyponatremia due to loss from the increase in Dyazide as this was recently increased from one tablet to two tablets daily. He does report more frequent urination as well as nocturia. He reports that his glucose readings have been well managed and he is not experiencing significant high readings that supports polyuria from hyperglycemia. He was initiated NSS at 125 mL/hr overnight that gradually increased his Na level which is currently 130. He is completely asymptomatic in regards to this hyponatremia. However on Thursday (10/18) he does recall his stating he seemed a little more confused than his baseline. Of note, upon admission he was noted to have PEPE with a Cr of 1.7 which has normalized to about baseline at 1.2. Due to these findings he was instructed to discontinue his Dyazide and to discuss reinstitution at a lower dose vs alternative therapy for BP control. He was also supplied with a prescription to obtain a BMP in the next couple of days to be evaluated by his PCP to monitor for resolution of hyponatremia. With routine labs his TSH was noted at 0.083 and T4 of 2.52 which suggests supratherapeutic levels of Synthroid. Synthroid adjustment was deferred as this medication was just recently adjusted and advised to have level rechecked in 6-8 weeks. He does report that he was told they prefer him to be more hyperthyroid and question if this is to assist with his weight loss journey? All home medications were continued as previously prescribed without adjustments or additions except for the discontinuation of Dyazide. Patient is asymptomatic in regards to hyponatremia and verbalizes no acute complaints. He is optimal for discharge home with additional BMP in the next few days and PCP follow-up. Total Time Spent: Greater than 30 minutes This includes examination of the patient, discharge planning, medication reconciliation, and communication with other providers. Discharge Instructions Please refer to the electronic Patient Visit Report (Discharge Instructions) for additional information. Additional Copies To Charles Jimenez M.D.; Izaiah Hui M.D.
[2017-01-08] MEDS ORDERED: TRIA1SPR4 NAE (15:54)
[2017-01-08] MEDS ORDERED: MISCCAP80 PO (15:54)
[2017-01-08] MEDS ORDERED: FARXIGA PO (15:54)
[2017-01-08] MEDS ORDERED: ALBU18002 INH (15:54)
[2017-01-08] MEDS ORDERED: VALS320T PO (15:54)
[2017-01-08] MEDS ORDERED: MULTTAB58 PO (15:54)
[2017-01-08] MEDS ORDERED: LEVO125T4 PO (15:54)
[2017-01-08] MEDS ORDERED: PRVC10 PO (15:54)
[2017-04-10] MEDS ORDERED: LEVO200T PO (12:37)
[2017-04-10] MEDS ORDERED: VITAMIN PO (12:38)
== END 2016-10-21 12:50 | disposition home or self-care (01) | DRG 683 ==
LOC: ENRESERVTM → ENRESERVDT → C.EDB 14:50 → C.MS4W 16:42
PROVIDERS: ADMIT Hospitalist; ATTEND Hospitalist
DX: N17.9 Acute kidney failure, unspecified (principal); E87.1 Hypo-osmolality and hyponatremia; Z68.41 Body mass index [BMI] 40.0-44.9, adult; T50.2X5A Adverse effect of carbonic-anhydrase inhibitors, benzothiadiazides and other diuretics, initial encounter; E86.0 Dehydration; R60.0 Localized edema; E10.42 Type 1 diabetes mellitus with diabetic polyneuropathy; E10.319 Type 1 diabetes mellitus with unspecified diabetic retinopathy without macular edema; I10 Essential (primary) hypertension; E03.9 Hypothyroidism, unspecified; E78.00 Pure hypercholesterolemia, unspecified; G47.33 Obstructive sleep apnea (adult) (pediatric); K76.0 Fatty (change of) liver, not elsewhere classified; E55.9 Vitamin D deficiency, unspecified; E66.01 Morbid (severe) obesity due to excess calories; Z99.89 Dependence on other enabling machines and devices; Z79.82 Long term (current) use of aspirin; Z79.899 Other long term (current) drug therapy

== ENCOUNTER → 2016-10-20 | Outpatient (CLI) | payer BC ==
[2016-10-20 12:47] LABS: BLOOD UREA NITROGEN 15 mg/dl (7-18); BUN/CREATININE RATIO 8.3 (10-20); CALCIUM 9.1 mg/dl (8.5-10.1); CARBON DIOXIDE 24 mmol/L (21-32); CHLORIDE 81 mmol/L (98-107); GLUCOSE 213 mg/dl (70-99); POTASSIUM 5.1 mmol/L (3.5-5.1); SODIUM 117 mmol/L (136-145)
== END | disposition home or self-care (01) ==
LOC: C.LABBFT 09:12
PROVIDERS: ATTEND Internal Medicine
DX: R79.9 Abnormal finding of blood chemistry, unspecified (principal)

== ENCOUNTER → 2016-10-24 | Outpatient (CLI) | payer BC ==
[~2016-10-24] MED LIST changes: +ALBU18002 INH; -ALL180 PO; -AMLO-110 PO; -ANDROGEL EXT; -ASPEC81 PO; +ASPI81TA28 PO; +CETI10TA84 PO; +CHOL2000 PO; +COEN1CAP28 PO; -CZR50 PO; +DILT-115 PO; +FARXIGA PO; +INSPMPNVLG; -INSULIN PUMP; +LEVO125T4 PO; +LEVO150T9 PO; +LEVO200T PO; +LOSA1TAB38 PO; +MISCCAP80 PO; -MOME50SP5; +MULTTAB58 PO; +PHEN1CAP PO; +PRAV20TA PO; +PRVC10 PO; -SIMV5TAB2 PO; -SYNUNK PO; +TRIA1SPR4 NAE; +VALS320T PO; +VITACAP37 PO; +VITAMIN PO
[2016-10-24 12:39] LABS: BLOOD UREA NITROGEN 10 mg/dl (7-18); BUN/CREATININE RATIO 8.6 (10-20); CALCIUM 9.3 mg/dl (8.5-10.1); CARBON DIOXIDE 26 mmol/L (21-32); CHLORIDE 97 mmol/L (98-107); GLUCOSE 84 mg/dl (70-99); POTASSIUM 4.4 mmol/L (3.5-5.1); SODIUM 133 mmol/L (136-145)
== END | disposition home or self-care (01) ==
LOC: C.LABBFT 10:09
PROVIDERS: ATTEND Internal Medicine
DX: E87.1 Hypo-osmolality and hyponatremia (principal); N17.9 Acute kidney failure, unspecified

== ENCOUNTER → 2017-01-28 | Outpatient (CLI) | payer BC ==
[~2017-01-28] MED LIST changes: -CHOL2000 PO; -COEN1CAP28 PO; -LEVO125T4 PO; +LEVO125T5 PO; -LEVO150T9 PO; -LOSA1TAB38 PO; -MULT-506 PO; -PHEN1CAP PO; -PRAV20TA PO; -VITACAP37 PO
[2017-01-28 12:08] LABS: BASO % 0.6 %; BASO ABS # 0.03 K/uL (0-0.2); COMPLETE YES; EOS % 1.3 %; HEMATOCRIT 43.4 % (42-52); LYMPH % 25.8 %; LYMPH ABS # 1.39 K/uL (1.2-3.4); MEAN CELL VOLUME 104.6 fL (80-100); MEAN CORPUSCULAR HEMOGLOBIN 36.4 pg (25-34); MEAN CORPUSCULAR HGB CONC 34.8 g/dl (32-36); MEAN PLATELET VOLUME 9.6 fL (7.4-10.4); MONO % 10.6 %; NEUT % 61.7 %; PLATELET COUNT 121 K/uL (130-400); RED BLOOD COUNT 4.15 M/uL (4.7-6.1); WHITE BLOOD COUNT 5.38 K/uL (4.8-10.8)
[2017-01-28 12:59] LABS: ALT/SGPT 99 U/L (12-78); BLOOD UREA NITROGEN 9 mg/dl (7-18); BUN/CREATININE RATIO 9.2 (10-20); CARBON DIOXIDE 26 mmol/L (21-32); CHLORIDE 98 mmol/L (98-107); CHOLESTEROL 240 mg/dl (0-200); CREATININE 0.97 mg/dl (0.60-1.40); GLUCOSE 101 mg/dl (70-99); POTASSIUM 4.2 mmol/L (3.5-5.1); SODIUM 134 mmol/L (136-145); TRIGLYCERIDES 130 mg/dl (0-150); VERY LOW DENSITY LIPOPROT CALC 26 mg/dl
[2017-01-28 13:07] LABS: CALCIUM 9.9 mg/dl (8.5-10.1)
[2017-01-28 13:09] LABS: ALKALINE PHOSPHATASE 117 U/L (45-117); AST/SGOT 167 U/L (15-37); CHOLESTEROL/HDL RATIO 3.2; HDL CHOLESTEROL 75 mg/dl; LDL CHOLESTEROL CALCULATED 139 mg/dl
[2017-01-28 13:34] LABS: ESTIMATED AVERAGE GLUCOSE 128 mg/dl; HA1C FLAG Normal (Normal)
== END ==
LOC: C.LABBFT 07:39
PROVIDERS: ATTEND Internal Medicine Endocrinology, Diabetes & Metabolism
DX: E10.9 Type 1 diabetes mellitus without complications (principal); E55.9 Vitamin D deficiency, unspecified; E03.9 Hypothyroidism, unspecified; D64.9 Anemia, unspecified; E78.5 Hyperlipidemia, unspecified

== ENCOUNTER → 2017-03-26 | Outpatient (CLI) | payer BC ==
[~2017-03-26] MED LIST changes: +LEVO125T4 PO; -LEVO125T5 PO; -LEVO200T PO; -VITAMIN PO
[2017-03-26 12:44] LABS: BASO % 0.5 %; BASO ABS # 0.03 K/uL (0-0.2); COMPLETE YES; EOS % 1.7 %; HEMATOCRIT 38.3 % (42-52); LYMPH % 23.5 %; LYMPH ABS # 1.39 K/uL (1.2-3.4); MEAN CELL VOLUME 103.2 fL (80-100); MEAN CORPUSCULAR HEMOGLOBIN 35.8 pg (25-34); MEAN CORPUSCULAR HGB CONC 34.7 g/dl (32-36); MEAN PLATELET VOLUME 9.4 fL (7.4-10.4); MONO % 14.9 %; NEUT % 59.4 %; PLATELET COUNT 148 K/uL (130-400); RED BLOOD COUNT 3.71 M/uL (4.7-6.1); WHITE BLOOD COUNT 5.92 K/uL (4.8-10.8)
== END | disposition home or self-care (01) ==
LOC: C.LABBFT 07:39
PROVIDERS: ATTEND Internal Medicine
DX: J30.9 Allergic rhinitis, unspecified (principal); D69.6 Thrombocytopenia, unspecified

== ENCOUNTER → 2017-03-27 | Outpatient (CLI) | payer BC ==
[~2017-03-27] MED LIST changes: +LEVO200T PO; +VITAMIN PO
== END | disposition home or self-care (01) ==
LOC: C.LABBFT 07:57
PROVIDERS: ATTEND Internal Medicine
DX: D64.9 Anemia, unspecified (principal)

== ENCOUNTER → 2017-04-15 | Day surgery (SDC) | payer BC ==
[2017-01-08 15:41] VITALS: BMI 40.0
[2017-04-10 12:41] VITALS: Ht 177.8 cm; Wt 127.3 kg
[~2017-04-15] VITALS: Ht 177.8 cm; Wt 127.3 kg
[~2017-04-15] MED LIST changes: +EpHEDrine SULFATE 50MG/5ML SYR ONE; -LEVO125T4 PO; +LIDOCAINE HCL 2% 2 ML VIAL (20MG/ML) ONE; +PROPOFOL IV EMULSION 10 MG/ML 20 ML VIAL IV ONE
--- NOTE | 2017-04-15 12:02 | Endo History and Physical ---
History & Physical Date of Service: Apr 15, 2017. Chief Complaint: Colon screening Referring Physician: Dr. Charles Jimenez History of Present Illness 52 yo CM who presents for screening colonoscopy. Past Surgical History Hx Cardiac Surgery: No Hx Internal Defibrillator: No Hx Pacemaker: No Hx Abdominal Surgery: Yes (UMBILICAL HERNIA X 2, SANDI) Hx of Implantable Prosthesis: No Hx Post-Op Nausea and Vomiting: No Hx Cancer Surgery: No Hx Thoracic Surgery: No Hx Orthopedic: Yes (RT RCR) Hx Urinary Tract Surgery: No Family History None Social History Smoking Status: Never Smoker Hx Substance Use: No Hx Alcohol Use: Yes (8-10 OUNCES DAILY) Allergies Coded Allergies: Penicillins (Verified Allergy, Intermediate, FACIAL RASH, 04/10/17) Rosuvastatin (Verified Allergy, Unknown, MUSCLE PAIN, 04/10/17) Current Medications Reported Home Medications Medications Dose Route/Sig Max Daily Dose Days Date Category [Vitamin Packet] 1 Pkt PO QAM 04/10/17 Reported Synthroid (Levothyroxine Sodium) 200 Mcg Tab 300 Mcg PO QAM 04/10/17 Reported Diovan (Valsartan) 320 Mg Tab 320 Mg PO QAM 01/08/17 Reported Nasacort Allergy 24Hr (Triamcinolone Acetonide (Nasal) 55 Mcg/Act Spr 2 [place] PERLA QAM 01/08/17 Reported Proair Respiclick (Albuterol Sulfate) 108 Mcg/Act Aer 2 Puff INH Q6H PRN 01/08/17 Reported Pravastatin Sodium (Pravastatin Sod) 10 Mg Tab 1 Tab PO QPM 01/08/17 Reported [Farxiga] 5 Mg PO QAM 01/08/17 Reported Probiotic (Probiotic Product) 1 Cap Cap 1 Cap PO QAM 01/08/17 Reported Multivitamin (Multiple Vitamin) 1 Tab Tab 1 Tab PO QAM 01/08/17 Reported Zyrtec (Cetirizine HCl) 10 Mg Tab 10 Mg PO QAM 10/20/16 Reported Tiazac (Diltiazem HCl) 240 Mg Capcr 240 Mg PO QAM 10/20/16 Reported novoLOG INSULIN PUMP (Insulin Aspart) 1 Ea Inj 1 Ea N/A UD 10/20/16 Reported Aspirin Ec (Aspirin) 81 Mg Tab 81 Mg PO QPM 10/20/16 Reported Vital Signs Weight (Kilograms): 127.27 Height (Feet): 5 Height (Inches): 10 Date Time Temp Pulse Resp B/P (MAP) Pulse Ox O2 Delivery O2 Flow Rate FiO2 04/15/17 10:43 36.9 94 20 152/79 (103) 96 Room Air Physical Exam General Appearance: WD/WN, no apparent distress Respiratory/Chest: Auscultation: breath sounds normal Cardiovascular: Heart Auscultation: RRR Abdomen: Bowel Sounds: normal Inspection & Palpation: soft, non-distended, no tenderness, guarding & rebound Assessment and Plan Assessment: 52 yo CM who presents for screening colonoscopy. Plan: Proceed with colonoscopy.
[2017-04-15 12:57] VITALS: BP 140/84; PULSE 77; O2SAT 97
--- NOTE | 2017-04-15 13:00 | Discharge Instructions ---
Endoscopy Patient Instructions Date / Procedure(s) Performed Apr 15, 2017. Colonoscopy Allergy Information Coded Allergies: Penicillins (Verified Allergy, Intermediate, FACIAL RASH, 04/10/17) Rosuvastatin (Verified Allergy, Unknown, MUSCLE PAIN, 04/10/17) Discharge Date / Findings Apr 15, 2017. Colon polyps Medication Instructions Stopped Medication(s): Patient was told he could take his nasal spray, diltizam, valsartan and synthroid this am. OK to resume all medications today as prescribed Reported Home Medications Medications Dose Route/Sig Max Daily Dose Days Date Category [Vitamin Packet] 1 Pkt PO QAM 04/10/17 Reported Synthroid (Levothyroxine Sodium) 200 Mcg Tab 300 Mcg PO QAM 04/10/17 Reported Diovan (Valsartan) 320 Mg Tab 320 Mg PO QAM 01/08/17 Reported Nasacort Allergy 24Hr (Triamcinolone Acetonide (Nasal) 55 Mcg/Act Spr 2 [place] PERLA QAM 01/08/17 Reported Proair Respiclick (Albuterol Sulfate) 108 Mcg/Act Aer 2 Puff INH Q6H PRN 01/08/17 Reported Pravastatin Sodium (Pravastatin Sod) 10 Mg Tab 1 Tab PO QPM 01/08/17 Reported [Farxiga] 5 Mg PO QAM 01/08/17 Reported Probiotic (Probiotic Product) 1 Cap Cap 1 Cap PO QAM 01/08/17 Reported Multivitamin (Multiple Vitamin) 1 Tab Tab 1 Tab PO QAM 01/08/17 Reported Zyrtec (Cetirizine HCl) 10 Mg Tab 10 Mg PO QAM 10/20/16 Reported Tiazac (Diltiazem HCl) 240 Mg Capcr 240 Mg PO QAM 10/20/16 Reported novoLOG INSULIN PUMP (Insulin Aspart) 1 Ea Inj 1 Ea N/A UD 10/20/16 Reported Aspirin Ec (Aspirin) 81 Mg Tab 81 Mg PO QPM 10/20/16 Reported Provider Instructions Activity Restrictions - No exercising or heavy lifting for 24 hours. - Do not drink alcohol the day of the procedure. - Do not drive a car or operate machinery until the day after the procedure. - Do not make any important decisions or sign important papers in 24 hours after the procedure. Following Day: - Return to full activity which may include returning to work/school. Diet Start your diet with liquids and light foods (jello, soup, juice, toast). Then eat your usual diet if not nauseated. Treatment For Common After Affects For mild abdominal pain, bloating, or excessive gas: - Rest - Eat lightly - Lie on right side Follow-Up Information Follow-up with Dr. Charles Jimenez as scheduled Anesthesia Information What You Should Know You have had a procedure that required some medicine to reduce anxiety and discomfort. This treatment is called moderate sedation. After receiving the treatment, you may be sleepy, but you will be able to breathe on your own. The effects of the treatment may last for several hours. Follow these instructions along with Activity/Diet recommendations noted above: * Do NOT do anything where dizziness or clumsiness would be dangerous. * Rest quietly at home today, then you can be up and about tomorrow. * Have a responsible person stay with you the rest of today. * You may have had an I.V. today. If so, you may take the dressing off later today. Recommendations Call your doctor if: * Trouble breathing * Continuous vomiting for more than 24 hours * Temperature above 101 degrees * Severe abdominal pain or bloating * Pain not relieved by pain medicine ordered * There is increased drainage or redness from any incision * A large amount of rectal bleeding greater than 2-3 tablespoons. (If you had a polyp/s removed or have hemorrhoids, a small amount of blood - from the rectum is to be expected.) * You have any unanswered questions or concerns. IN THE EVENT OF A SERIOUS EMERGENCY, GO TO THE NEAREST EMERGENCY ROOM Your discharge instructions were prepared by provider Cale Campbell. Patient Instructions Signature Page Brad Castañeda Patient (or Guardian) Signature/Date: I have read and understand the instructions given to me by my caregivers. Caregiver/RN/Doctor Signature/Date: The above-named patient and/or guardian has received patient instructions on this date. + Original Patient Signature Page (only) stays with chart. Please make copy for patient.
--- NOTE | 2017-04-15 13:24 | Anesthesiology Progress Note ---
Anesthesia Post Op Note Date & Time Apr 15, 2017 at 13:24 Vital Signs Pain Intensity: 0 Vital Signs Past 12 Hours Date Time Temp Pulse Resp B/P (MAP) Pulse Ox O2 Delivery O2 Flow Rate FiO2 04/15/17 12:57 77 18 140/84 (102) 97 Room Air 04/15/17 12:42 89 18 135/86 (102) 95 Room Air 04/15/17 12:27 92 18 110/67 (81) 95 Room Air 04/15/17 10:43 36.9 94 20 152/79 (103) 96 Room Air Notes Mental Status: alert / awake / arousable, participated in evaluation Pt Amnestic to Procedure: Yes Nausea / Vomiting: adequately controlled Pain: adequately controlled Airway Patency, RR, SpO2: stable & adequate BP & HR: stable & adequate Hydration State: stable & adequate Anesthetic Complications: no major complications apparent
--- NOTE | 2017-04-15 13:32 | GI REPORT ---
Procedure Date: 04/15/2017 11:24 AM Procedure: Colonoscopy Indications: Screening for colorectal malignant neoplasm Medicines: Monitored Anesthesia Care Complications: No immediate complications. Estimated Blood Loss: Estimated blood loss: none. Procedure: Pre-Anesthesia Assessment: - Prior to the procedure, a History and Physical was performed, and patient medications and allergies were reviewed. The patient's tolerance of previous anesthesia was also reviewed. The risks and benefits of the procedure and the sedation options and risks were discussed with the patient. All questions were answered, and informed consent was obtained. Prior Anticoagulants: The patient has taken no previous anticoagulant or antiplatelet agents. ASA Grade Assessment: III - A patient with severe systemic disease. After reviewing the risks and benefits, the patient was deemed in satisfactory condition to undergo the procedure. After I obtained informed consent, the scope was passed under direct vision. Throughout the procedure, the patient's blood pressure, pulse, and oxygen saturations were monitored continuously. The scope was introduced through the anus and advanced to the terminal ileum. The colonoscopy was performed without difficulty. The patient tolerated the procedure well. The quality of the bowel preparation was good. The terminal ileum, ileocecal valve, appendiceal orifice, and rectum were photographed. Findings: Three sessile polyps were found in the transverse colon. The polyps were 3 to 6 mm in size. These polyps were removed with a hot snare. Resection and retrieval were complete. The exam was otherwise without abnormality on direct and retroflexion views. Impression: - Three 3 to 6 mm polyps in the transverse colon, removed with a hot snare. Resected and retrieved. - The examination was otherwise normal on direct and retroflexion views. Recommendation: - Resume previous diet. - Continue present medications. - Repeat colonoscopy for surveillance based on pathology results. - Return to primary care physician as previously scheduled. Cale Campbell DO 04/15/2017 1:31:30 PM This report has been signed electronically. Note Initiated On: 04/15/2017 11:24 AM I attest to the content of the Intraoperative Record and orders documented therein, exceptions below
== END | disposition home or self-care (01) ==
LOC: C.GI 10:07
PROVIDERS: ATTEND Internal Medicine
DX: Z12.11 Encounter for screening for malignant neoplasm of colon (principal); D12.3 Benign neoplasm of transverse colon; E66.9 Obesity, unspecified; G47.33 Obstructive sleep apnea (adult) (pediatric); I10 Essential (primary) hypertension; K21.9 Gastro-esophageal reflux disease without esophagitis; I25.2 Old myocardial infarction; Z90.49 Acquired absence of other specified parts of digestive tract; Z79.82 Long term (current) use of aspirin; Z79.4 Long term (current) use of insulin

== ENCOUNTER → 2017-04-23 | Outpatient (CLI) | payer BC ==
[~2017-04-23] MED LIST changes: -EpHEDrine SULFATE 50MG/5ML SYR ONE; -LIDOCAINE HCL 2% 2 ML VIAL (20MG/ML) ONE; -PROPOFOL IV EMULSION 10 MG/ML 20 ML VIAL IV ONE
[2017-04-23 12:50] LABS: ESTIMATED AVERAGE GLUCOSE 143 mg/dl; HA1C FLAG Normal (Normal)
[2017-04-23 13:08] LABS: FERRITIN 548.5 ng/ml (8.0-388.0); THYROID STIMULATING HORMONE 0.47 uIu/ml (0.300-4.500)
== END | disposition home or self-care (01) ==
LOC: C.LABBFT 07:35
PROVIDERS: ATTEND Internal Medicine Endocrinology, Diabetes & Metabolism
DX: D64.9 Anemia, unspecified (principal); E03.9 Hypothyroidism, unspecified; E10.9 Type 1 diabetes mellitus without complications

== ENCOUNTER → 2017-07-29 | Outpatient (CLI) | payer BC ==
[2017-07-29 12:52] LABS: ESTIMATED AVERAGE GLUCOSE 123 mg/dl; HA1C FLAG Normal (Normal)
== END | disposition home or self-care (01) ==
LOC: C.LABBFT 07:31
PROVIDERS: ATTEND Family Medicine
DX: E10.9 Type 1 diabetes mellitus without complications (principal)

== ENCOUNTER → 2017-10-14 | Day surgery (SDC) | payer BC ==
[2017-10-01 09:26] VITALS: Ht 177.8 cm; Wt 122.7 kg
[~2017-10-14] VITALS: Ht 177.8 cm; Wt 122.7 kg
[~2017-10-14] MED LIST changes: -ALBU18002 INH; -ASPI81TA28 PO; +COEN1CAP17 PO; +ESCI10TA17 PO; -FARXIGA PO; +HYDR25CA PO; -LEVO200T PO; +LEVO300T31 PO; +LIDOCAINE HCL 2% 2 ML VIAL (20MG/ML) ONE; -MISCCAP80 PO; +ONDANSETRON INJ 2 MG/ML 2 ML VIAL ONE; +PROPOFOL IV EMULSION 10 MG/ML 20 ML VIAL IV ONE; -PRVC10 PO; +SODIUM CHLORIDE 0.9% 500ML 500 ML IV ONE; +VTME100 PO
--- NOTE | 2017-10-14 15:23 | Endo History and Physical ---
History & Physical Date of Service: Oct 14, 2017. Chief Complaint: anemia Referring Physician: History of Present Illness anemia Past Surgical History Hx Cardiac Surgery: No Hx Internal Defibrillator: No Hx Pacemaker: No Hx Abdominal Surgery: Yes (UMBILICAL HERNIA X 2, SANDI) Hx Post-Op Nausea and Vomiting: No Hx Cancer Surgery: No Hx Thoracic Surgery: No Hx Orthopedic: Yes (RT RCR) Hx Urinary Tract Surgery: No Family History None Social History Smoking Status: Never Smoker Hx Substance Use: No Hx Alcohol Use: No Allergies Coded Allergies: Penicillins (Verified Allergy, Intermediate, FACIAL RASH, 10/02/17) Rosuvastatin (Verified Adverse Reaction, Unknown, MUSCLE PAIN, 10/02/17) Current Medications Reported Home Medications Medications Dose Route/Sig Max Daily Dose Days Date Category Vitamin E (Tocopheryl Acet,Dl-Alpha) 100 Interunit Cap 1 Cap PO DAILY 10/02/17 Reported Co Q 10 (Coenzyme Q10 (Ubidecarenone)) 100 Mg Cap 100 Mg PO DAILY 10/01/17 Reported Vistaril (Hydroxyzine Pamoate) 25 Mg Cap 25 Mg PO TID PRN 10/01/17 Reported Lexapro (Escitalopram Oxalate) 10 Mg Tab 10 Mg PO QAM 10/01/17 Reported Levothyroxine Sodium 300 Mcg Tab 300 Mcg PO QAM 10/01/17 Reported [Vitamin Packet] 1 Pkt PO QAM 04/10/17 Reported Diovan (Valsartan) 320 Mg Tab 320 Mg PO QAM 01/08/17 Reported Nasacort Allergy 24Hr (Triamcinolone Acetonide (Nasal) 55 Mcg/Act Spr 2 [place] PERLA QAM 01/08/17 Reported Multivitamin (Multiple Vitamin) 1 Tab Tab 1 Tab PO QAM 01/08/17 Reported Zyrtec (Cetirizine HCl) 10 Mg Tab 10 Mg PO QAM 10/20/16 Reported Tiazac (Diltiazem HCl) 240 Mg Capcr 240 Mg PO QPM 10/20/16 Reported novoLOG INSULIN PUMP (Insulin Aspart) 1 Ea Inj 1 Ea N/A UD 10/20/16 Reported Vital Signs Weight (Kilograms): 122.73 Height (Feet): 5 Height (Inches): 10 Physical Exam General Appearance: WD/WN, no apparent distress Respiratory/Chest: Auscultation: breath sounds normal Cardiovascular: Heart Auscultation: RRR Abdomen: Bowel Sounds: normal Inspection & Palpation: soft, non-distended, no tenderness, guarding & rebound Assessment and Plan EGD for anemia
--- NOTE | 2017-10-14 15:58 | GI REPORT ---
Procedure Date: 10/14/2017 2:52 PM Procedure: Upper GI endoscopy Indications: Suspected upper gastrointestinal bleeding in patient with unexplained iron deficiency anemia Medicines: Propofol per Anesthesia Complications: No immediate complications. Estimated blood loss: Minimal. Estimated Blood Loss: Estimated blood loss was minimal. Procedure: Pre-Anesthesia Assessment: - Prior to the procedure, a History and Physical was performed, and patient medications and allergies were reviewed. The patient's tolerance of previous anesthesia was also reviewed. The risks and benefits of the procedure and the sedation options and risks were discussed with the patient. All questions were answered, and informed consent was obtained. Prior Anticoagulants: The patient has taken no previous anticoagulant or antiplatelet agents. ASA Grade Assessment: III - A patient with severe systemic disease. After reviewing the risks and benefits, the patient was deemed in satisfactory condition to undergo the procedure. After obtaining informed consent, the endoscope was passed under direct vision. Throughout the procedure, the patient's blood pressure, pulse, and oxygen saturations were monitored continuously. The scope was introduced through the mouth, and advanced to the mid-jejunum. The upper GI endoscopy was accomplished without difficulty. The patient tolerated the procedure well. Findings: The examined esophagus was normal. A small hiatal hernia was found. The proximal extent of the gastric folds (end of tubular esophagus) was 39 cm from the incisors. The hiatal narrowing was 41 cm from the incisors. The Z-line was 39 cm from the incisors. A single 15 mm pedunculated polyp with no bleeding and stigmata of recent bleeding was found in the cardia. Area was successfully injected with 10 mL of a 1:20,000 solution of epinephrine for drug delivery. The polyp was removed with a hot snare. Resection and retrieval were complete. To prevent bleeding after the polypectomy, two hemostatic clips were successfully placed (MR conditional). There was no bleeding at the end of the procedure. Multiple 2 mm no bleeding angioectasias were found in the gastric antrum. Fulguration to ablate the lesion to prevent bleeding by argon plasma at 1.4 liters/minute and 30 mane was successful. Estimated blood loss: none. The examined duodenum was normal. The examined jejunum was normal. The exam of the stomach was otherwise normal. Retained gastric contents are not identified on this exam. The cardia and gastric fundus were otherwise normal on retroflexion. Impression: - Normal esophagus. - Small hiatal hernia. - A single gastric polyp. Resected and retrieved. Injected. Clips (MR conditional) were placed. - Multiple non-bleeding angioectasias in the stomach. Treated with argon plasma coagulation (APC). - Normal examined duodenum. - Normal examined jejunum. Recommendation: - Discharge patient to home (ambulatory). - Resume regular diet. - Continue present medications. - Use Prilosec (omeprazole) 40 mg PO BID for 3 months. - Await pathology results. - Repeat upper endoscopy in 6 weeks to evaluate the response to therapy. - Check hemoglobin weekly. MD Leandro Borja MD 10/14/2017 3:58:15 PM This report has been signed electronically. Note Initiated On: 10/14/2017 2:52 PM I attest to the content of the Intraoperative Record and orders documented therein, exceptions below
--- NOTE | 2017-10-14 16:00 | Discharge Instructions ---
Endoscopy Patient Instructions Date / Procedure(s) Performed Oct 14, 2017. EGD Allergy Information Coded Allergies: Penicillins (Verified Allergy, Intermediate, FACIAL RASH, 10/02/17) Rosuvastatin (Verified Adverse Reaction, Unknown, MUSCLE PAIN, 10/02/17) Discharge Date / Findings Oct 14, 2017. 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 Medication Instructions Restart Stopped Medication(s): Reported Home Medications Medications Dose Route/Sig Max Daily Dose Days Date Category Vitamin E (Tocopheryl Acet,Dl-Alpha) 100 Interunit Cap 1 Cap PO DAILY 10/02/17 Reported Co Q 10 (Coenzyme Q10 (Ubidecarenone)) 100 Mg Cap 100 Mg PO DAILY 10/01/17 Reported Vistaril (Hydroxyzine Pamoate) 25 Mg Cap 25 Mg PO TID PRN 10/01/17 Reported Lexapro (Escitalopram Oxalate) 10 Mg Tab 10 Mg PO QAM 10/01/17 Reported Levothyroxine Sodium 300 Mcg Tab 300 Mcg PO QAM 10/01/17 Reported [Vitamin Packet] 1 Pkt PO QAM 04/10/17 Reported Diovan (Valsartan) 320 Mg Tab 320 Mg PO QAM 01/08/17 Reported Nasacort Allergy 24Hr (Triamcinolone Acetonide (Nasal) 55 Mcg/Act Spr 2 [place] PERLA QAM 01/08/17 Reported Multivitamin (Multiple Vitamin) 1 Tab Tab 1 Tab PO QAM 01/08/17 Reported Zyrtec (Cetirizine HCl) 10 Mg Tab 10 Mg PO QAM 10/20/16 Reported Tiazac (Diltiazem HCl) 240 Mg Capcr 240 Mg PO QPM 10/20/16 Reported novoLOG INSULIN PUMP (Insulin Aspart) 1 Ea Inj 1 Ea N/A UD 10/20/16 Reported Prilosec 40mg twice daily for 3 months Reported Home Medications Medications Dose Route/Sig Max Daily Dose Days Date Category Vitamin E (Tocopheryl Acet,Dl-Alpha) 100 Interunit Cap 1 Cap PO DAILY 10/02/17 Reported Co Q 10 (Coenzyme Q10 (Ubidecarenone)) 100 Mg Cap 100 Mg PO DAILY 10/01/17 Reported Vistaril (Hydroxyzine Pamoate) 25 Mg Cap 25 Mg PO TID PRN 10/01/17 Reported Lexapro (Escitalopram Oxalate) 10 Mg Tab 10 Mg PO QAM 10/01/17 Reported Levothyroxine Sodium 300 Mcg Tab 300 Mcg PO QAM 10/01/17 Reported [Vitamin Packet] 1 Pkt PO QAM 04/10/17 Reported Diovan (Valsartan) 320 Mg Tab 320 Mg PO QAM 01/08/17 Reported Nasacort Allergy 24Hr (Triamcinolone Acetonide (Nasal) 55 Mcg/Act Spr 2 [place] PERLA QAM 01/08/17 Reported Multivitamin (Multiple Vitamin) 1 Tab Tab 1 Tab PO QAM 01/08/17 Reported Zyrtec (Cetirizine HCl) 10 Mg Tab 10 Mg PO QAM 10/20/16 Reported Tiazac (Diltiazem HCl) 240 Mg Capcr 240 Mg PO QPM 10/20/16 Reported novoLOG INSULIN PUMP (Insulin Aspart) 1 Ea Inj 1 Ea N/A UD 10/20/16 Reported Prilosec 40mg twice daily for 3 months Provider Instructions Activity Restrictions - No exercising or heavy lifting for 24 hours. - Do not drink alcohol the day of the procedure. - Do not drive a car or operate machinery until the day after the procedure. - Do not make any important decisions or sign important papers in 24 hours after the procedure. Following Day: - Return to full activity which may include returning to work/school. Diet Start your diet with liquids and light foods (jello, soup, juice, toast). Then eat your usual diet if not nauseated. Treatment For Common After Affects For mild abdominal pain, bloating, or excessive gas: - Rest - Eat lightly - Lie on right side Follow-Up Information Follow-up with Dr. Charles Jimenez as scheduled Anesthesia Information What You Should Know You have had a procedure that required some medicine to reduce anxiety and discomfort. This treatment is called moderate sedation. After receiving the treatment, you may be sleepy, but you will be able to breathe on your own. The effects of the treatment may last for several hours. Follow these instructions along with Activity/Diet recommendations noted above: * Do NOT do anything where dizziness or clumsiness would be dangerous. * Rest quietly at home today, then you can be up and about tomorrow. * Have a responsible person stay with you the rest of today. * You may have had an I.V. today. If so, you may take the dressing off later today. Recommendations Call your doctor if: * Trouble breathing * Continuous vomiting for more than 24 hours * Temperature above 101 degrees * Severe abdominal pain or bloating * Pain not relieved by pain medicine ordered * There is increased drainage or redness from any incision * A large amount of rectal bleeding greater than 2-3 tablespoons. (If you had a polyp/s removed or have hemorrhoids, a small amount of blood - from the rectum is to be expected.) * You have any unanswered questions or concerns. IN THE EVENT OF A SERIOUS EMERGENCY, GO TO THE NEAREST EMERGENCY ROOM Your discharge instructions were prepared by provider Leandro Hensley. Patient Instructions Signature Page Brad Castañeda Patient (or Guardian) Signature/Date: I have read and understand the instructions given to me by my caregivers. Caregiver/RN/Doctor Signature/Date: The above-named patient and/or guardian has received patient instructions on this date. + Original Patient Signature Page (only) stays with chart. Please make copy for patient.
[2017-10-14 16:30] VITALS: BP 170/92; PULSE 84; O2SAT 100
--- NOTE | 2017-10-14 16:38 | Anesthesiology Progress Note ---
Anesthesia Post Op Note Date & Time Oct 14, 2017 at 16:37 Vital Signs Pain Intensity: 0 Vital Signs Past 12 Hours Date Time Temp Pulse Resp B/P (MAP) Pulse Ox O2 Delivery O2 Flow Rate FiO2 10/14/17 16:30 84 20 170/92 (118) 100 Room Air 10/14/17 16:14 96 20 165/93 (117) 100 Room Air 10/14/17 15:58 105 16 138/69 (92) 98 Room Air 10/14/17 14:38 36.9 96 18 148/83 (104) 100 Room Air Notes Mental Status: alert / awake / arousable, participated in evaluation Pt Amnestic to Procedure: Yes Nausea / Vomiting: adequately controlled Pain: adequately controlled Airway Patency, RR, SpO2: stable & adequate BP & HR: stable & adequate Hydration State: stable & adequate Anesthetic Complications: no major complications apparent Patient feeling jittery after procedure, seems to be improving - did get multiple epi injections as part of the procedure - stable vitals.
== END | disposition home or self-care (01) ==
LOC: C.GI 13:40
PROVIDERS: ATTEND Internal Medicine Gastroenterology
DX: D50.9 Iron deficiency anemia, unspecified (principal); K31.7 Polyp of stomach and duodenum; K44.9 Diaphragmatic hernia without obstruction or gangrene; K31.819 Angiodysplasia of stomach and duodenum without bleeding; J45.909 Unspecified asthma, uncomplicated; G47.33 Obstructive sleep apnea (adult) (pediatric); I10 Essential (primary) hypertension; E78.5 Hyperlipidemia, unspecified; K21.9 Gastro-esophageal reflux disease without esophagitis; E66.9 Obesity, unspecified; Z79.4 Long term (current) use of insulin; Z90.49 Acquired absence of other specified parts of digestive tract

== ENCOUNTER 2018-01-01 17:04 | Inpatient (IN) | payer BC, OTHER ==
[~2018-01-01] VITALS: Ht 175.3 cm; Wt 134.4 kg
[~2018-01-01 17:04] MED LIST changes: -ESCI10TA17 PO; +ESCI1TAB10 PO; -LIDOCAINE HCL 2% 2 ML VIAL (20MG/ML) ONE; +OMEP40CA41 PO; -ONDANSETRON INJ 2 MG/ML 2 ML VIAL ONE; -PROPOFOL IV EMULSION 10 MG/ML 20 ML VIAL IV ONE; -SODIUM CHLORIDE 0.9% 500ML 500 ML IV ONE
[2018-01-01 19:01] LABS: ALBUMIN 2.7 gm/dl (3.4-5.0); CALCIUM 8.6 mg/dl (8.5-10.1); CREATININE 0.98 mg/dl (0.60-1.40); POTASSIUM 4.3 mmol/L (3.5-5.1)
[2018-01-01 19:04] LABS: TOTAL PROTEIN 6.5 gm/dl (6.4-8.2)
[2018-01-01 19:09] LABS: INR 1.2 (0.9-1.1); PTT PATIENT 29.7 SECONDS (21.0-31.0)
[2018-01-01 19:10] LABS: HEMATOCRIT 21.3 % (42-52); HEMOGLOBIN 7.2 g/dL (14.0-18.0); MEAN CORPUSCULAR HEMOGLOBIN 27.4 pg (25-34); MEAN CORPUSCULAR HGB CONC 33.8 g/dl (32-36); MEAN PLATELET VOLUME 8.6 fL (7.4-10.4); PLATELET COUNT 56 K/uL (130-400); RED CELL DISTRIBUTION WIDTH CV 21.6 % (11.5-14.5); RED CELL DISTRIBUTION WIDTH SD 63.3 fL (36.4-46.3)
[2018-01-01 19:11] LABS: BASO % 0.5 %; BASO ABS # 0.02 K/uL (0-0.2); EOS % 4.1 %; EOS ABS # 0.17 K/uL (0-0.5); IG# 0.01 K/uL (0.00-0.02); LYMPH % 16.3 %; LYMPH ABS # 0.67 K/uL (1.2-3.4); MONO % 12.9 %; MONO ABS # 0.53 K/uL (0.11-0.59)
[2018-01-01] MEDS ORDERED: SODIUM CHLORIDE 0.9% 500ML 500 ML IV STA (19:13)
[2018-01-01] MEDS ORDERED: PANTOprazole INJ 80 MG in DEXTROSE 5% 100ML IV ONE (19:30)
[2018-01-01] MEDS ORDERED: PANTOprazole INJ 40 MG in DEXTROSE 5% 100ML IV SCH (19:45)
--- NOTE | 2018-01-01 19:49 | EMERGENCY ROOM VISIT NOTE ---
History Report prepared by Anuradha: Komal Butt Under the Supervision of: Dr. Juan Jackson M.D. First contact with patient: 18:25 Chief Complaint: ABNORMAL LABS Stated Complaint: BLOOD ISSUES- REFERRED History of Present Illness The patient is a 52 year old male who presents to the Emergency Room with complaints of an episode of abnormal labs 2 days ago. He had a low hemoglobin, low platelet count, and low sodium. He saw his PCP today and was told to watch how much water he drinks. He later got a call from his hematology/oncology doctor recommending that he go to the ED. The patient's blood counts are being monitored. He had an EGD 1 month ago. He denies any fatigue, SOB, chest pain, fever, or chills. He has leg swelling which is normal for him. He notes that his stools have been darker since starting a psychotropic drug for depression, but not black or tarry. He does not think that he appears more pale than usual. He denies any history of ulcers. Source of History: patient Onset: 2 days ago Position: other (blood) Quality: other (abnormal labs) Timing: other (episodic) Associated Symptoms: No fevers, No chills, No chest pain, No SOB, No melena , No fatigue Note: Pt reports darker stools. Review of Systems See HPI for pertinent positives & negatives. A total of 10 systems reviewed and were otherwise negative. Past Medical & Surgical Medical Problems: (1) PEPE, hyponatremia (2) Diabetes (3) Heart disease Surgical Problems: (1) S/P cholecystectomy (2) S/P hernia repair (3) Status post hernia repair Family History Cancer Diabetes mellitus Hypertension Social History Smoking Status: Never Smoker Alcohol Use: occasionally Drug Use: none Marital Status: Housing Status: lives with significant other Occupation Status: employed Current/Historical Medications Scheduled Aspirin (Aspirin Ec), 81 MG PO DAILY Azithromycin (Zithromax), 250 MG PO DAILY Cetirizine (Zyrtec), 10 MG PO QAM Cholecalciferol (Vitamin D), 2,000 UNITS PO QAM Coenzyme Q10 (Ubidecarenone) (Co Q 10), 100 MG PO DAILY Diltiazem Hcl Ext Rel (Tiazac), 120 MG PO QPM Escitalopram Oxalate (Lexapro), 20 MG PO QAM Insulin Aspart (novoLOG INSULIN PUMP ), 1 EA N/A UD Levothyroxine Sodium (Levothyroxine Sodium), 25 MG PO DAILY Levothyroxine Sodium (Levothyroxine Sodium), 200 MCG PO DAILY Montelukast Sodium (Singulair), 10 MG PO DAILY Multiple Vitamin (Multivitamin), 1 TAB PO QAM Omeprazole (Prilosec), 40 MG PO QAM Pravastatin (Pravachol ), 20 MG PO HS Tocopheryl Acet,Dl-Alpha (Vitamin E), 1 CAP PO DAILY Triamcinolone Acetonide (Nasal (Nasacort Allergy 24Hr), 2 SPRAY PERLA QAM Valsartan (Diovan), 320 MG PO QAM Venlafaxine Hcl (Venlafaxine Extended Rel), 75 MG PO DAILY Scheduled PRN Benzonatate (Tessalon Perles), 1-2 CAP PO TID PRN for Cough Lorazepam (Ativan), 0.5 MG PO BID PRN for Anxiety Allergies Coded Allergies: Penicillins (Verified Allergy, Intermediate, FACIAL RASH, 11/19/17) Hydrochlorothiazide w/Triamterene (Verified Allergy, Unknown, UNKNOWN, ) Simvastatin (Verified Allergy, Unknown, UNKNOWN, 01/01/18) Rosuvastatin (Verified Adverse Reaction, Unknown, MUSCLE PAIN, 11/19/17) Physical Exam Vital Signs Date Time Temp Pulse Resp B/P (MAP) Pulse Ox O2 Delivery O2 Flow Rate FiO2 01/01/18 18:51 104 18 160/83 100 Room Air 01/01/18 17:14 36.6 104 20 127/65 99 Room Air Physical Exam GENERAL: Patient is in no acute distress. HEENT: No acute trauma, normocephalic atraumatic, mucous membranes moist, no nasal congestion, no scleral icterus. NECK: No stridor, no adenopathy, no meningismus, trachea is midline. LUNGS: Clear to auscultation bilaterally, no wheeze, no rhonchi, breath sounds equal. HEART: Mildly tachycardic with a regular rhythm and 2/6 systolic murmur. ABDOMEN: Soft, nontender, bowel sounds positive, no hernias, no peritonitis. RECTAL: Brown stool heme positive. EXTREMITIES: No cyanosis, moderate bilateral pedal edema, full range of motion of all the joints without pain or difficulty, no signs for acute trauma. NEUROLOGIC: Oriented x 3, no acute motor or sensory deficits, no focal weakness. SKIN: No rash, no jaundice, no diaphoresis. Medical Decision & Procedures Laboratory Results Test 01/01/18 18:20 Platelet Estimate DECREASED Hypochromasia PRESENT Osmolality 303 mOsm/kg (280-300) Laboratory results reviewed by me. Medications Administered Medications (Trade) Dose Ordered Sig/Mike Route Start Time Stop Time Status Last Admin Dose Admin Sodium Chloride 500 ml @ 999 mls/hr Q31M STAT IV 01/01/18 19:13 01/01/18 19:43 DC 01/01/18 19:22 999 MLS/HR Pantoprazole Sodium 80 mg/ Dextrose 120 ml @ 480 mls/hr TODAY@1930 ONCE IV 01/01/18 19:30 01/01/18 19:44 DC 01/01/18 20:35 480 MLS/HR Pantoprazole Sodium 40 mg/ Dextrose 100 ml @ 20 mls/hr Q5H IV 01/01/18 19:45 01/02/18 00:44 DC 01/01/18 20:35 20 MLS/HR ECG Per My Interpretation Indication: other (abnormal labs) Rate (beats per minute): 103 Rhythm: sinus tachycardia Findings: no ectopy, other (no PVC, no ST elevation) ED Course 1828: The patient was evaluated in room B7. A complete history and physical exam was performed. 1912: Sodium Chloride 500 ml @ 999 mls/hr IV. 1916: Upon reexamination the patient is resting comfortably. I discussed results and treatment plan with the patient and his significant other. They verbalize agreement and understanding. The patient will be evaluated for further management. 1926: I discussed the patient's case with Dr. Hayes, [facility] hospitalist. The patient will be evaluated for further management. 1929: Pantoprazole Sodium 80 mg/Dextrose 120 ml @ 480 mls/hr IV. 1944: Pantoprazole Sodium 40 mg/Dextrose 100 ml @ 20 mls/hr IV. Medical Decision Differential diagnoses considered include upper or lower GI bleed, anemia, low platelet count, electrolyte imbalance, renal or liver failure, lab error. There is no leukocytosis. The patient is anemic, hemoglobin is in the 7 range. Platelet count is low. The patient is hyponatremic, no kidney failure. There is evidence for liver enzyme elevations, the liver enzymes are more elevated than they have been in the past. No concerning coagulopathy. EKG shows a sinus tachycardia, no acute ischemia. On my exam, the patient had brown stool however, it was heme positive. The patient presents with abnormal laboratory values, these values have been confirmed on repeat testing. He will likely require a packed red blood cell transfusion. He needs a workup for the GI bleeding. Hospitalization is warranted. I spoke to the patient and case management. The on-call hospitalist was consulted. The patient did receive IV saline, he was given a bolus of IV Protonix and then placed on a Protonix drip. He is stable and resting comfortably. Medication Reconcilliation Current Medication List: was personally reviewed by me Blood Pressure Screening Patient's blood pressure: Elevated blood pressure Referred to hospitalist. Consults Time Called: 1921 Consulting Physician: Dr. Hayes [facility] hospitalist Returned Call: 1926 Discussed the patient's case. The patient will be evaluated for further management. Impression Primary Impression: GI bleed Additional Impressions: Anemia Hyponatremia Elevated liver enzymes Thrombocytopenia Scribe Attestation The scribe's documentation has been prepared under my direction and personally reviewed by me in its entirety. I confirm that the note above accurately reflects all work, treatment, procedures, and medical decision making performed by me. Departure Information Dispostion Being Evaluated By Hospitalist Referrals Charles Jimenez M.D. (PCP) Patient Instructions My [facility] Problem Qualifiers
[2018-01-01] MEDS ORDERED: ASPI81TA28 PO (19:51)
[2018-01-01] MEDS ORDERED: BENZ100C84 PO (19:51)
[2018-01-01] MEDS ORDERED: AZIT250T PO (19:51)
[2018-01-01] MEDS ORDERED: DILT120C68 PO (19:51)
[2018-01-01] MEDS ORDERED: LEVO200T6 PO (19:56)
[2018-01-01] MEDS ORDERED: LEVO25TA5 PO (19:56)
[2018-01-01] MEDS ORDERED: CHOL200010 PO (19:56)
[2018-01-01] MEDS ORDERED: PRAV20TA PO (19:56)
[2018-01-01] MEDS ORDERED: VENL75CA73 PO (19:58)
[2018-01-01] MEDS ORDERED: MONT1TAB3 PO (20:03)
[2018-01-01] MEDS ORDERED: LORA-741 PO (20:03)
[2018-01-01] MEDS ORDERED: MAGNESIUM HYDROXIDE SUSP 30 ML UDC PO PRN (20:30)
[2018-01-01] MEDS ORDERED: POLYETHYLENE (MIRALAX) 17 GM PACK PO PRN (20:30)
[2018-01-01] MEDS ORDERED: ONDANSETRON INJ 2 MG/ML 2 ML VIAL IV PRN (20:30)
--- NOTE | 2018-01-01 20:35 | History and Physical ---
History & Physical Date & Time of Service: Jan 01, 2018 at 20:35 Chief Complaint: Blood Issues- Referred Primary Care Physician: Charles Jimenez M.D. History of Present Illness Source: patient 52-year-old male with past medical history of diabetes, hypertension, hyponatremia, hypothyroidism, depression presented to the ER with abnormal labs. The patient stated that he was recommended by his heme oncologist to go to the ER after his labs returned with a hemoglobin of 7.2 and platelet count of 56. He was also noted to have a sodium level of 125. The patient denies any bright red bleeding per rectum or dark tarry stools. He stated that he had an EGD and had a resection of a gastric polyp and coagulation of angiectasias. He was recommended to use 40 mg twice daily of omeprazole and recommended a repeat endoscopy in 6 weeks. he denies any chest pain, shortness of breath, dizziness or lightheadedness but complains of feeling fatigued and tired. He drinks about 20 ounces of wine per day but denies any history of smoking. Past Medical/Surgical History Medical Problems: (1) PEPE, hyponatremia (2) Diabetes (3) Heart disease (4) Hyponatremia Surgical Problems: (1) S/P cholecystectomy (2) S/P hernia repair (3) Status post hernia repair Family History Cancer Diabetes mellitus Hypertension Social History Smoking Status: Never Smoker Smokeless Tobacco Use: No Alcohol Use: heavy Drug Use: none Marital Status: Housing status: lives with family Occupational Status: employed Immunizations History of Influenza Vaccine: Unknown History of Tetanus Vaccine?: Unknown History of Pneumococcal: Unknown History of Hepatitis B Vaccine: Unknown Allergies Coded Allergies: Penicillins (Verified Allergy, Intermediate, FACIAL RASH, 11/19/17) Hydrochlorothiazide w/Triamterene (Verified Allergy, Unknown, UNKNOWN, ) Simvastatin (Verified Allergy, Unknown, UNKNOWN, 01/01/18) Rosuvastatin (Verified Adverse Reaction, Unknown, MUSCLE PAIN, 11/19/17) Home Medications Scheduled Aspirin (Aspirin Ec), 81 MG PO DAILY Azithromycin (Zithromax), 250 MG PO DAILY Cetirizine (Zyrtec), 10 MG PO QAM Cholecalciferol (Vitamin D), 2,000 UNITS PO QAM Coenzyme Q10 (Ubidecarenone) (Co Q 10), 100 MG PO DAILY Diltiazem Hcl Ext Rel (Tiazac), 120 MG PO QPM Escitalopram Oxalate (Lexapro), 20 MG PO QAM Insulin Aspart (novoLOG INSULIN PUMP ), 1 EA N/A UD Levothyroxine Sodium (Levothyroxine Sodium), 25 MG PO DAILY Levothyroxine Sodium (Levothyroxine Sodium), 200 MCG PO DAILY Montelukast Sodium (Singulair), 10 MG PO DAILY Multiple Vitamin (Multivitamin), 1 TAB PO QAM Omeprazole (Prilosec), 40 MG PO QAM Pravastatin (Pravachol ), 20 MG PO HS Tocopheryl Acet,Dl-Alpha (Vitamin E), 1 CAP PO DAILY Triamcinolone Acetonide (Nasal (Nasacort Allergy 24Hr), 2 SPRAY PERLA QAM Valsartan (Diovan), 320 MG PO QAM Venlafaxine Hcl (Venlafaxine Extended Rel), 75 MG PO DAILY Scheduled PRN Benzonatate (Tessalon Perles), 1-2 CAP PO TID PRN for Cough Lorazepam (Ativan), 0.5 MG PO BID PRN for Anxiety Review of Systems Constitutional: No fever, No chills Eyes: No worsening of vision ENT: No hearing loss Respiratory: No cough, No sputum Cardiovascular: No chest pain, No palpitations Abdomen: No pain, No nausea, No vomiting, No GI bleeding Musculoskeletal: No joint pain Genitourinary - Male: No hematuria, No dysuria, No urinary frequency Neurologic: No memory loss Psychiatric: No depression symptoms Endocrine: + fatigue Hematologic / Lymphatic: No abnormal bleeding/bruising Integumentary: No rash Physical Exam Vital Signs Date Time Temp Pulse Resp B/P (MAP) Pulse Ox O2 Delivery O2 Flow Rate FiO2 01/01/18 18:51 104 18 160/83 100 Room Air 01/01/18 17:14 36.6 104 20 127/65 99 Room Air General Appearance: WD/WN, no apparent distress Head: normocephalic ENT: hearing grossly normal Neck: supple Respiratory/Chest: chest non-tender, lungs clear, normal breath sounds, no respiratory distress, no accessory muscle use Cardiovascular: + tachycardia Abdomen/GI: normal bowel sounds, non tender, soft Neurologic/Psych: alert, normal mood/affect, oriented x 3 Skin: + pertinent finding (bruising on abdominal wall) Diagnostics Laboratory Results Results Past 24 Hours Test 01/01/18 18:20 Range/Units White Blood Count 4.10 4.8-10.8 K/uL Red Blood Count 2.63 4.7-6.1 M/uL Hemoglobin 7.2 14.0-18.0 g/dL Hematocrit 21.3 42-52 % Mean Corpuscular Volume 81.0 80-100 fL Mean Corpuscular Hemoglobin 27.4 25-34 pg Mean Corpuscular Hemoglobin Concent 33.8 32-36 g/dl Platelet Count 56 130-400 K/uL Mean Platelet Volume 8.6 7.4-10.4 fL Neutrophils (%) (Auto) 66.0 % Lymphocytes (%) (Auto) 16.3 % Monocytes (%) (Auto) 12.9 % Eosinophils (%) (Auto) 4.1 % Basophils (%) (Auto) 0.5 % Neutrophils # (Auto) 2.70 1.4-6.5 K/uL Lymphocytes # (Auto) 0.67 1.2-3.4 K/uL Monocytes # (Auto) 0.53 0.11-0.59 K/uL Eosinophils # (Auto) 0.17 0-0.5 K/uL Basophils # (Auto) 0.02 0-0.2 K/uL RDW Standard Deviation 63.3 36.4-46.3 fL RDW Coefficient of Variation 21.6 11.5-14.5 % Immature Granulocyte % (Auto) 0.2 % Immature Granulocyte # (Auto) 0.01 0.00-0.02 K/uL Platelet Estimate DECREASED Hypochromasia PRESENT Anisocytosis PRESENT Prothrombin Time 12.7 9.0-12.0 SECONDS Prothromb Time International Ratio 1.2 0.9-1.1 Activated Partial Thromboplast Time 29.7 21.0-31.0 SECONDS Partial Thromboplastin Ratio 1.1 Sodium Level 125 136-145 mmol/L Potassium Level 4.3 3.5-5.1 mmol/L Chloride Level 91 98-107 mmol/L Carbon Dioxide Level 27 21-32 mmol/L Anion Gap 8.0 3-11 mmol/L Blood Urea Nitrogen 7 7-18 mg/dl Creatinine 0.98 0.60-1.40 mg/dl Est Creatinine Clear Calc Drug Dose 114.6 ml/min Estimated GFR () 103.0 Estimated GFR (Non- 88.9 BUN/Creatinine Ratio 6.9 10-20 Random Glucose 136 70-99 mg/dl Calcium Level 8.6 8.5-10.1 mg/dl Total Bilirubin 1.6 0.2-1 mg/dl Aspartate Amino Transf (AST/SGOT) 351 15-37 U/L Alanine Aminotransferase (ALT/SGPT) 81 12-78 U/L Alkaline Phosphatase 365 45-117 U/L Total Protein 6.5 6.4-8.2 gm/dl Albumin 2.7 3.4-5.0 gm/dl Globulin 3.8 2.5-4.0 gm/dl Albumin/Globulin Ratio 0.7 0.9-2 EKG Sinus tachycardia Low voltage QRS Borderline ECG When compared with ECG of 20-OCT-2016 16:05, No significant change was found Confirmed by CRISTIAN DUMONT ([id number]) on 01/01/2018 9:38:45 PM Impression Assessment and Plan 52-year-old male with past medical history of diabetes, hypertension, hyponatremia, hypothyroidism, depression presented to the ER with abnormal labs. The patient stated that he was recommended by his heme oncologist to go to the ER after his labs returned with a hemoglobin of 7.2 and platelet count of 56. Anemia and thrombocytopenia: -Hemoglobin at 7.2 and platelet count of 56 -Hemoccult positive for blood -Likely secondary to GI bleed and a combination of bone marrow suppression from chronic alcohol abuse -2 units ordered for transfusion but will require blood from [place] -Hematology/oncology consult GI bleeding -Hemoccult-positive -Continue Protonix 40 mg twice daily -History of coagulation of angiectasias 10/01, was recommended repeat endoscopy in 6 weeks -GI consult -N.p.o. for possible EGD Hyponatremia: - Sodium at 125 -Likely secondary to beer potomania - was also recently started on Effexor but has a history of hyponatremia prior to starting Effexor -Continue IV fluids -Monitor BMP Transaminitis: -AST of 351, ALT at 81, alk phos of 365 -History of steatosis likely secondary to alcohol abuse -Consider imaging to rule out cirrhosis Chronic alcohol use: - drinks about 20 oz wine/day - Monitor for withdrawal Diabetes -Insulin pump currently discontinued -Sliding-scale insulin Hypertension: Continue-Diovan and diltiazem Hyperlipidemia: Continue pravastatin Hypothyroidism -Continue Synthroid DVT prophylaxis: Chemical anticoagulation contraindicated due to GI bleed SCDs Full code Disposition: Admitted to telemetry Attending addendum: I have physically seen this patient, have supervised the medical residents activities, and agree with the H&P unless as otherwise noted. Assessment and Plan: Anemia/thrombocytopenia/heme positive stool-- Transfuse 2 units packed RBCs. H&H every 6 hours 24 hours. Consult his planner/scheduler doctors Soraya/Kiran. Hyponatremia-- Sodium 125 admission. Most likely an element of beer potomania. Normal saline at 100 mils per hour. Serial BMP and magnesium levels. Transaminitis/fatty liver/possible STANLEY vs. ANTONIA-- Follow serial laboratories. Should strongly be considered for further imaging and potential liver biopsy to rule out cirrhosis/carcinoma once he is more stable. Diabetes mellitus-- We will turn off his insulin pump since his blood sugar is only 145 in the ED. Placed on Accu-Cheks before meals and at bedtime with NovoLog coverage per scale. Patient will be n.p.o. for now. Alcohol use disorder-- Placed on alcohol withdrawal scale. I discussed with patient at length contribution that his excessive alcohol intake is causing to every aspect of his medical issues. Alcohol counseling. Advanced Directives Existing Advance Directive: No Existing Living Will: No Existing Power of Home Management Supervisor: No Resuscitation Status Full VTE Prophylaxis Will order VTE Prophylaxis: Yes Reason for no VTE drug order: Treatment not tolerated, Contraindicated Social Service Consult None Apply Note Total Time: Critical Care 30 - 74 minutes Resident Tracking Resident Involvement: Resident Care Provided Care Provided: Adult Hospital Medicine
[2018-01-01] MEDS ORDERED: GLUCAGON FOR INJ 1 MG VIAL SQ PRN (22:30)
[2018-01-01] MEDS ORDERED: GLUCOSE 40% GEL 15 GM TUBE PO PRN (22:30)
[2018-01-01] MEDS ORDERED: GLUCOSE 10 TABS/TUBE PO PRN (22:30)
[2018-01-01] MEDS: SODIUM CHLORIDE 0.9% 1000ML 1,000 ML IV SCH (22:39)
[2018-01-01 22:40] VITALS: BP 152/75; PULSE 115; TEMP 37; O2SAT 99
[2018-01-01 23:12] VITALS: BP 152/75; PULSE 115; TEMP 37; BMI 39.4
[2018-01-01 23:42] VITALS: BP 148/70; PULSE 106; TEMP 37.1; O2SAT 95
[2018-01-02 01:09] LABS: HEMATOCRIT 19.6 % (42-52); HEMOGLOBIN 6.6 g/dL (14.0-18.0)
[2018-01-02] MEDS ORDERED: COUGH DROP (SUGAR FREE) LOZ 24 LOZ/1 BOX LOZ PRN (01:15)
[2018-01-02 04:41] VITALS: BP 132/60; PULSE 114; TEMP 37; O2SAT 97
[2018-01-02 05:17] LABS: INR 1.3 (0.9-1.1); PTT PATIENT 30.6 SECONDS (21.0-31.0)
[2018-01-02 05:30] LABS: ALBUMIN 2.4 gm/dl (3.4-5.0); CALCIUM 7.9 mg/dl (8.5-10.1); CREATININE 0.71 mg/dl (0.60-1.40); POTASSIUM 4.5 mmol/L (3.5-5.1)
[2018-01-02 05:33] LABS: TOTAL PROTEIN 5.8 gm/dl (6.4-8.2)
[2018-01-02 05:41] LABS: HEMATOCRIT 19.4 % (42-52); HEMOGLOBIN 6.6 g/dL (14.0-18.0); MEAN CELL VOLUME 81.9 fL (80-100); MEAN CORPUSCULAR HEMOGLOBIN 27.8 pg (25-34); MEAN PLATELET VOLUME 8.7 fL (7.4-10.4); PLATELET COUNT 49 K/uL (130-400); RED CELL DISTRIBUTION WIDTH CV 22.1 % (11.5-14.5)
[2018-01-02 05:56] LABS: BASO % 0.5 %; BASO ABS # 0.02 K/uL (0-0.2); EOS % 2.2 %; EOS ABS # 0.08 K/uL (0-0.5); LYMPH % 13.2 %; LYMPH ABS # 0.49 K/uL (1.2-3.4); MONO % 11.6 %; MONO ABS # 0.43 K/uL (0.11-0.59); NEUT % 72.5 %; NEUT ABS # 2.68 K/uL (1.4-6.5)
[2018-01-02 07:03] VITALS: BP 121/55; PULSE 116; TEMP 36.8; O2SAT 98
[2018-01-02] MEDS: SODIUM CHLORIDE 0.9% 1000ML 1,000 ML IV SCH ×2 (08:17→18:03)
[2018-01-02] MEDS: INSULIN ASPART 100 UNITS/ML 3 ML PEN SC SCH ×2 (08:20→12:41)
[2018-01-02] MEDS ORDERED: LORAZEPAM 2 MG/ML 1 ML VIAL IV PRN (08:30)
[2018-01-02] MEDS ORDERED: LORAZEPAM INJ 1 MG in SYRINGE 0.5 ML IV ONE ×2 (08:45→12:45)
[2018-01-02] MEDS ORDERED: PANTOprazole INJ 40 MG in SYRINGE 0 ML IV SCH (09:00)
--- NOTE | 2018-01-02 09:17 | Family Medicine Progress Note ---
Progress Note Date of Service Jan 02, 2018. Subjective Pt evaluation today including: conversation w/ patient Found patient resting comfortably early this morning. States that he feels a bit tired and stressed but denies any focal pains including in his abdomen or chest. Says that he has noticed some dots of bright red blood per rectum which he associates with hemorrhoids about 2-3 weeks ago but no more recent rectal bleeding or dark stools. He does ask about whether or not to continue his azithromycin which he started 2 days ago for possible bronchitis. He states he has had a cough for about 3 weeks that seemed to get worse in the past week. He denies any hemoptysis. No other acute patient concerns. Constitutional: No fever Respiratory: + cough, No shortness of breath Cardiovascular: + edema, No chest pain Abdomen: + GI bleeding, No pain, No nausea, No vomiting Medications Current Inpatient Medications Medications (Trade) Dose Ordered Sig/Mike Route Start Time Stop Time Status Last Admin Dose Admin Sodium Chloride 1,000 ml @ 100 mls/hr Q10H IV 01/01/18 23:00 01/31/18 22:59 01/02/18 08:17 100 MLS/HR Magnesium Hydroxide (Milk Of Magnesia Susp) 30 ml Q12H PRN PO 01/01/18 20:30 01/31/18 20:29 Ondansetron HCl (Zofran Inj) 4 mg Q6H PRN IV 01/01/18 20:30 01/31/18 20:29 Polyethylene (Miralax Powder Packet) 17 gm DAILY PRN PO 01/01/18 20:30 01/31/18 20:29 Insulin Aspart (novoLOG ASPART) SLIDING SCALE G... ACHS SC 01/02/18 06:30 02/01/18 06:29 01/02/18 08:20 1 UNITS Glucose (Glucose 40% Gel) 15-30 GRAMS 15 GRAMS... UD PRN PO 01/01/18 22:30 01/31/18 22:29 Glucose (Glucose Chew Tab) 4-8 Tablets 4 Tabl... UD PRN PO 01/01/18 22:30 01/31/18 22:29 Dextrose (Dextrose 50% 50ML Syringe) 25-50ML OF 50% DW IV FOR... UD PRN IV 4/20/18 22:30 01/31/18 22:29 Glucagon (Glucagon Inj) 1 mg UD PRN SQ 01/01/18 22:30 01/31/18 22:29 Menthol (Nice Amaury) 1 amaury PRN PRN AMAURY 01/02/18 01:15 02/01/18 01:14 01/02/18 01:24 1 AMAURY Pantoprazole Sodium 40 mg/ Syringe 10 ml @ 5 mls/min DAILY@ IV 01/02/18 09:00 02/01/18 08:59 01/02/18 08:17 5 MLS/MIN Lorazepam (Ativan Inj) 1 mg ONE PRN IV 01/02/18 08:30 Objective Vital Signs Date Time Temp Pulse Resp B/P (MAP) Pulse Ox O2 Delivery O2 Flow Rate FiO2 01/02/18 07:45 Room Air 01/02/18 07:03 36.8 116 18 121/55 (77) 98 CPAP 01/02/18 04:41 37.0 114 20 132/60 (84) 97 High Flow Oxygen 01/02/18 04:00 Room Air 01/02/18 00:01 Room Air 01/01/18 23:42 37.1 106 20 148/70 (96) 95 Room Air 01/01/18 23:12 37.0 115 20 152/75 Room Air 01/01/18 22:40 37.0 115 20 152/75 (100) 99 Room Air 01/01/18 21:38 106 20 148/70 99 01/01/18 18:51 104 18 160/83 100 Room Air 01/01/18 17:14 36.6 104 20 127/65 99 Room Air Physical Exam Notes: General Appearance: Awake, alert & oriented, comfortable in general, NAD. CV: +S1S2 regular tachycardia, no murmur. Pulm: CTA (B). Abdomen: +BS, soft, non-tender, non-distended but has a self-reducing diastasis recti. Two small (couple cm) areas of contusion on the abdominal wall. Extremities: 1+ bilateral (appears more chronic) love edema. No calf tenderness. Moving all extremities naturally and easily. Does have a bilateral intention tremor. Neuro: No gross neuro deficits. Lines: PIV Laboratory Results 01/02/18 04:36 Red Blood Count 2.37, Mean Corpuscular Volume 81.9, Mean Corpuscular Hemoglobin 27.8, Mean Corpuscular Hemoglobin Concent 34.0, Mean Platelet Volume 8.7, Neutrophils (%) (Auto) 72.5, Lymphocytes (%) (Auto) 13.2, Monocytes (%) (Auto) 11.6, Eosinophils (%) (Auto) 2.2, Basophils (%) (Auto) 0.5, Neutrophils # (Auto ) 2.68, Lymphocytes # (Auto) 0.49, Monocytes # (Auto) 0.43, Eosinophils # (Auto ) 0.08, Basophils # (Auto) 0.02 01/02/18 04:36 Test 01/01/18 18:20 01/01/18 23:30 01/02/18 03:30 01/02/18 04:36 Platelet Estimate DECREASED Hypochromasia PRESENT Osmolality 303 mOsm/kg (280-300) Urine Osmolality 589 mOms/kg (500-800) Stool Occult Blood POSITIVE (NEGATIVE) White Blood Count 3.70 K/uL (4.8-10.8) Red Blood Count 2.37 M/uL (4.7-6.1) Hemoglobin 6.6 g/dL (14.0-18.0) Hematocrit 19.4 % (42-52) Mean Corpuscular Volume 81.9 fL (80-100) Mean Corpuscular Hemoglobin 27.8 pg (25-34) Mean Corpuscular Hemoglobin Concent 34.0 g/dl (32-36) Platelet Count 49 K/uL (130-400) Mean Platelet Volume 8.7 fL (7.4-10.4) Neutrophils (%) (Auto) 72.5 % Lymphocytes (%) (Auto) 13.2 % Monocytes (%) (Auto) 11.6 % Eosinophils (%) (Auto) 2.2 % Basophils (%) (Auto) 0.5 % Neutrophils # (Auto) 2.68 K/uL (1.4-6.5) Lymphocytes # (Auto) 0.49 K/uL (1.2-3.4) Monocytes # (Auto) 0.43 K/uL (0.11-0.59) Eosinophils # (Auto) 0.08 K/uL (0-0.5) Basophils # (Auto) 0.02 K/uL (0-0.2) RDW Standard Deviation 65.0 fL (36.4-46.3) RDW Coefficient of Variation 22.1 % (11.5-14.5) Immature Granulocyte % (Auto) 0.0 % Immature Granulocyte # (Auto) 0.00 K/uL (0.00-0.02) Large Platelets 1+ Anisocytosis PRESENT Prothrombin Time 13.3 SECONDS (9.0-12.0) Prothromb Time International Ratio 1.3 (0.9-1.1) Activated Partial Thromboplast Time 30.6 SECONDS (21.0-31.0) Partial Thromboplastin Ratio 1.2 Anion Gap 12.0 mmol/L (3-11) Est Creatinine Clear Calc Drug Dose 158.2 ml/min Estimated GFR () 125.9 Estimated GFR (Non- 108.6 BUN/Creatinine Ratio 9.9 (10-20) Calcium Level 7.9 mg/dl (8.5-10.1) Total Bilirubin 2.0 mg/dl (0.2-1) Aspartate Amino Transf (AST/SGOT) 264 U/L (15-37) Alanine Aminotransferase (ALT/SGPT) 64 U/L (12-78) Alkaline Phosphatase 317 U/L (45-117) Total Protein 5.8 gm/dl (6.4-8.2) Albumin 2.4 gm/dl (3.4-5.0) Globulin 3.4 gm/dl (2.5-4.0) Albumin/Globulin Ratio 0.7 (0.9-2) Test 01/02/18 08:13 Bedside Glucose 215 mg/dl (70-99) Assessment and Plan 52 yo male was referred to the emergency department for abnormal labs via his oncologist's office. He was noted to have a hemoglobin of 7.2 and a platelet count of 56. PMH: Diabetes, hypertension, hyponatremia, hypothyroidism, depression. Anemia and thrombocytopenia: Hemoglobin dropped to 6.6 and platelets to 49. Hematology consulted, please see their note. Hemoccult positive in the ER as well. His anemia is thought to be due to GI bleeding in the context of gastric angioectasias and GAVE. His thrombocytopenia is potentially due to multiple factors to include immune mediated vs viral vs alcohol vs bone marrow suppression as sources. - Will start on folate 1 mg daily. - He is pending a transfusion of 2 units of PRBCs provided from [place] due to previous transfusion reaction. - Will obtain a CT abdomen and pelvis with p.o. and IV contrast for further evaluation of the spleen and liver. GI bleeding: Thought to be due to an upper GI bleed, since he has a history of gastric angioectasias. Was started on Protonix drip and now p.o. twice daily. No clear evidence of ongoing massive GI bleed. Is hemodynamically stable. GI consulted. Patient elected to undergo an outpatient EGD. We will continue to monitor following his transfusion. Hyponatremia: Na 125, possibly secondary to potomania. Was also recently started on Effexor but has a history of hyponatremia prior to starting this. Is on normal saline at 100 mL an hour. Will monitor BMP's. Transaminitis: AST of 351, ALT at 81, alk phos of 365. History of minimal fibrosis likely secondary to alcohol abuse. Chronic alcohol use: Patient states he drinks about 20 oz wine/day. Will monitor for withdrawal. AWSS protocol with ativan prn in place. Cough: Patient notes about 3 weeks with cough and recent use of a azithromycin for the past 48 hours. Chest x-ray here showed some mild pulmonary vascular congestion with small pleural effusion but otherwise no evidence of infiltrate. He does not have an ongoing cough during interviews. Will hold his azithromycin for now. Diabetes: Requested patient bring in his own insulin pump and manage his diabetes via this. Patient was quite amenable to this. Offered assistance as needed. Hypertension: Continue diovan and diltiazem Hyperlipidemia: Continue pravastatin Hypothyroidism: Continue Synthroid Code status: Full Diet: DM type 2 diet with carb counting. DVT prophy: Chemical anticoagulation contraindicated due to GI bleed. SCD's (B) . PT/OT: Deferred. Disbo: Admit to telemetry. Resident Physician Supervision Note: I interviewed and examined the patient. Discussed with Dr. Carney and agree with findings and plan as documented in the note. Any exceptions or clarifications are listed here: None Documented By: Stuart Arroyo >35mins face to face in d/w pt and , also d/w dr martinez and dr carney vitals noted nad breathing unlabored no pallor or icterus subacute anemia most likely from GI bleeding from GAVE exacerbated by EtOH related stomach irritation - requires transfusion - follow; anemia likely also has element of EtOH related suppression, low iron, low folate at play as well thrombocytopenia - seems most c/w EtOH related marrow suppression exacerbated by consumptive effect of bleeding from GAVE elevated bili and INR - d/w pt concerns on early findings of potentially serious liver dysfunction EtOH abuse - notes ~16-20oz wine avg per day (so about 4-5 drinks) -- d/w him regarding terminal operator implications including all of above likely relating directly back to EtOH abuse. he is willing to consider quitting. follow for any withdrawal again >35mins face to face in discussing/educating/counselling Resident Tracking Resident Involvement: Resident Care Provided Care Provided: Adult Hospital Medicine (inpatient)
--- NOTE | 2018-01-02 09:35 | DIAGNOSTIC IMAGING REPORT ---
TWO VIEW CHEST CLINICAL HISTORY: Cough. FINDINGS: AP and lateral chest radiographs are compared to study dated 10/20/2016. The AP view is mildly degraded by patient rotation. The heart is top normal for projection. Mild pulmonary vascular congestion is identified. There are small pleural effusions with bibasilar atelectasis, only seen on the lateral projection. There is no pneumothorax. The skeletal structures are osteopenic. The bony thorax appears intact. Degenerative changes noted throughout the thoracic spine. Cholecystectomy clips are noted. IMPRESSION: 1. There is mild pulmonary vascular congestion. 2. There are small pleural effusions with associated atelectasis. Electronically signed by: Juan Mcdowell M.D. 01/02/2018 9:34 AM Dictated Date/Time: 01/02/2018 9:31 AM
--- NOTE | 2018-01-02 10:20 | Oncology Consultation ---
Oncology/Heme Consultation Date of Consultation: Jan 02, 2018. Attending Physician: Stuart Arroyo D.O. Reason for Consultation: Pancytopenia History of Present Illness Mr. Castañeda is a 52 year old man with a history of alcohol abuse, obesity, MANFRED , and hypertension. I met him in the office about 10 days ago to discuss iron deficiency anemia. He started iron infusions on 12/30. He had labs at [facility] on that revealed a hemoglobin of 8.8, platelets 132, AlkPhos 279, AST 192, and Tot bili 1.4. They also revealed a sodium of 126. I asked him to have repeat labs, which were done 12/30. This revealed a hemoglobin of 7.1, platelets of 59, TBili of 2.1, and confirmed the moderate hyponatremia and transaminitis. I called him and asked him to come to the ER. He's been anemic (in the 8-9 range) since August with an elevated MCV and iron studies that revealed a low TF saturation but a low-normal ferritin. He underwent EGD by Dr. Hensley on 10/14 that revealed some gastric angioectasias, treated with APC. He was due for a second-look EGD, but it was delayed due to an ongoing URI. On 11/04, his AST was 77 and his alkphos was 213, but his bilirubin was normal at 1.3. His sodium was also in the 130s. He denies any recent change in his alcohol use habits. He drinks close to a bottle of wine per day on average. He recently stopped a diuretic, as Dr. Jimenez thought it was leading to his mild hyponatremia. He doesn't recall which and this was well prior to his acute change in counts. He also started a Z-nandini for the URI on 12/30. He has hemorrhoids that bleed at times but he denies any acute or severe bleeding. He also denies any melena, though he tells me his stools can be "like putty" at times. He denies any fevers, night sweats, adenopathy, or fatigue. Past Medical/Surgical History Medical Problems: (1) Anemia Status: Acute (2) Elevated liver enzymes Status: Acute (3) GI bleed Status: Acute (4) Hyponatremia Status: Acute (5) Hyponatremia Status: Acute (6) Thrombocytopenia Status: Acute Family History Cancer Diabetes mellitus Hypertension Social History Smoking Status: Unknown if Ever Smoked Smokeless Tobacco Use: No Alcohol Use: heavy Drug Use: none Marital Status: Housing Status: lives with significant other Occupation Status: employed Allergies Coded Allergies: Penicillins (Verified Allergy, Intermediate, FACIAL RASH, 11/19/17) Hydrochlorothiazide w/Triamterene (Verified Allergy, Unknown, UNKNOWN, ) Simvastatin (Verified Allergy, Unknown, UNKNOWN, 01/01/18) Rosuvastatin (Verified Adverse Reaction, Unknown, MUSCLE PAIN, 11/19/17) Home Medications Scheduled Aspirin (Aspirin Ec), 81 MG PO DAILY Azithromycin (Zithromax), 250 MG PO DAILY Cetirizine (Zyrtec), 10 MG PO QAM Cholecalciferol (Vitamin D), 2,000 UNITS PO QAM Coenzyme Q10 (Ubidecarenone) (Co Q 10), 100 MG PO DAILY Diltiazem Hcl Ext Rel (Tiazac), 120 MG PO QPM Escitalopram Oxalate (Lexapro), 20 MG PO QAM Insulin Aspart (novoLOG INSULIN PUMP ), 1 EA N/A UD Levothyroxine Sodium (Levothyroxine Sodium), 25 MG PO DAILY Levothyroxine Sodium (Levothyroxine Sodium), 200 MCG PO DAILY Montelukast Sodium (Singulair), 10 MG PO DAILY Multiple Vitamin (Multivitamin), 1 TAB PO QAM Omeprazole (Prilosec), 40 MG PO QAM Pravastatin (Pravachol ), 20 MG PO HS Tocopheryl Acet,Dl-Alpha (Vitamin E), 1 CAP PO DAILY Triamcinolone Acetonide (Nasal (Nasacort Allergy 24Hr), 2 SPRAY PERLA QAM Valsartan (Diovan), 320 MG PO QAM Venlafaxine Hcl (Venlafaxine Extended Rel), 75 MG PO DAILY Scheduled PRN Benzonatate (Tessalon Perles), 1-2 CAP PO TID PRN for Cough Lorazepam (Ativan), 0.5 MG PO BID PRN for Anxiety Current Inpatient Medications Current Inpatient Medications Medications (Trade) Dose Ordered Sig/Mike Route Start Time Stop Time Status Last Admin Dose Admin Sodium Chloride 1,000 ml @ 100 mls/hr Q10H IV 01/01/18 23:00 01/31/18 22:59 4/21/18 08:17 100 MLS/HR Magnesium Hydroxide (Milk Of Magnesia Susp) 30 ml Q12H PRN PO 01/01/18 20:30 01/31/18 20:29 Ondansetron HCl (Zofran Inj) 4 mg Q6H PRN IV 01/01/18 20:30 01/31/18 20:29 Polyethylene (Miralax Powder Packet) 17 gm DAILY PRN PO 01/01/18 20:30 01/31/18 20:29 Insulin Aspart (novoLOG ASPART) SLIDING SCALE G... ACHS SC 01/02/18 06:30 02/01/18 06:29 01/02/18 08:20 1 UNITS Glucose (Glucose 40% Gel) 15-30 GRAMS 15 GRAMS... UD PRN PO 01/01/18 22:30 01/31/18 22:29 Glucose (Glucose Chew Tab) 4-8 Tablets 4 Tabl... UD PRN PO 01/01/18 22:30 01/31/18 22:29 Dextrose (Dextrose 50% 50ML Syringe) 25-50ML OF 50% DW IV FOR... UD PRN IV 01/01/18 22:30 01/31/18 22:29 Glucagon (Glucagon Inj) 1 mg UD PRN SQ 01/01/18 22:30 01/31/18 22:29 Menthol (Nice Amaury) 1 amaury PRN PRN AMAURY 01/02/18 01:15 02/01/18 01:14 01/02/18 01:24 1 AMAURY Pantoprazole Sodium 40 mg/ Syringe 10 ml @ 5 mls/min DAILY@ IV 01/02/18 09:00 02/01/18 08:59 01/02/18 08:17 5 MLS/MIN Lorazepam (Ativan Inj) 1 mg ONE PRN IV 01/02/18 08:30 Review of Systems Constitutional: No fever, No chills Eyes: No worsening of vision ENT: + nasal symptoms Respiratory: No cough, No shortness of breath Cardiovascular: No chest pain Abdomen: + GI bleeding (hemorrhoidal), No pain, No nausea Musculoskeletal: No joint pain, No muscle pain Genitourinary - Male: No hematuria, No dysuria Hematologic / Lymphatic: No abnormal bleeding/bruising, No swollen lymph nodes , No night sweats Physical Exam Date Time Temp Pulse Resp B/P (MAP) Pulse Ox O2 Delivery O2 Flow Rate FiO2 01/02/18 07:45 Room Air 01/02/18 07:03 36.8 116 18 121/55 (77) 98 CPAP 01/02/18 04:41 37.0 114 20 132/60 (84) 97 High Flow Oxygen 01/02/18 04:00 Room Air 01/02/18 00:01 Room Air 01/01/18 23:42 37.1 106 20 148/70 (96) 95 Room Air 01/01/18 23:12 37.0 115 20 152/75 Room Air 01/01/18 22:40 37.0 115 20 152/75 (100) 99 Room Air 01/01/18 21:38 106 20 148/70 99 01/01/18 18:51 104 18 160/83 100 Room Air 01/01/18 17:14 36.6 104 20 127/65 99 Room Air General Appearance: no apparent distress, + obese ENT: pharynx normal Respiratory/Chest: lungs clear Cardiovascular: regular rate, rhythm Abdomen/GI: non tender, soft Extremities/Musculoskelatal: no pedal edema Neurologic/Psych: alert, oriented x 3 Skin: warm/dry, no rash Laboratory Results Last 24 Hours Test 01/01/18 18:20 01/01/18 21:30 01/01/18 23:30 01/02/18 00:06 White Blood Count 4.10 K/uL Red Blood Count 2.63 M/uL Hemoglobin 7.2 g/dL 6.6 g/dL Hematocrit 21.3 % 19.6 % Mean Corpuscular Volume 81.0 fL Mean Corpuscular Hemoglobin 27.4 pg Mean Corpuscular Hemoglobin Concent 33.8 g/dl Platelet Count 56 K/uL Mean Platelet Volume 8.6 fL Neutrophils (%) (Auto) 66.0 % Lymphocytes (%) (Auto) 16.3 % Monocytes (%) (Auto) 12.9 % Eosinophils (%) (Auto) 4.1 % Basophils (%) (Auto) 0.5 % Neutrophils # (Auto) 2.70 K/uL Lymphocytes # (Auto) 0.67 K/uL Monocytes # (Auto) 0.53 K/uL Eosinophils # (Auto) 0.17 K/uL Basophils # (Auto) 0.02 K/uL RDW Standard Deviation 63.3 fL RDW Coefficient of Variation 21.6 % Immature Granulocyte % (Auto) 0.2 % Immature Granulocyte # (Auto) 0.01 K/uL Platelet Estimate DECREASED Hypochromasia PRESENT Anisocytosis PRESENT Prothrombin Time 12.7 SECONDS Prothromb Time International Ratio 1.2 Activated Partial Thromboplast Time 29.7 SECONDS Partial Thromboplastin Ratio 1.1 Sodium Level 125 mmol/L Potassium Level 4.3 mmol/L Chloride Level 91 mmol/L Carbon Dioxide Level 27 mmol/L Anion Gap 8.0 mmol/L Blood Urea Nitrogen 7 mg/dl Creatinine 0.98 mg/dl Est Creatinine Clear Calc Drug Dose 114.6 ml/min Estimated GFR () 103.0 Estimated GFR (Non- 88.9 BUN/Creatinine Ratio 6.9 Random Glucose 136 mg/dl Osmolality 303 mOsm/kg Calcium Level 8.6 mg/dl Total Bilirubin 1.6 mg/dl Aspartate Amino Transf (AST/SGOT) 351 U/L Alanine Aminotransferase (ALT/SGPT) 81 U/L Alkaline Phosphatase 365 U/L Total Protein 6.5 gm/dl Albumin 2.7 gm/dl Globulin 3.8 gm/dl Albumin/Globulin Ratio 0.7 Bedside Glucose 142 mg/dl Urine Osmolality 589 mOms/kg Test 01/02/18 02:57 01/02/18 03:30 01/02/18 04:36 01/02/18 08:13 Bedside Glucose 189 mg/dl 215 mg/dl Stool Occult Blood POSITIVE White Blood Count 3.70 K/uL Red Blood Count 2.37 M/uL Hemoglobin 6.6 g/dL Hematocrit 19.4 % Mean Corpuscular Volume 81.9 fL Mean Corpuscular Hemoglobin 27.8 pg Mean Corpuscular Hemoglobin Concent 34.0 g/dl Platelet Count 49 K/uL Mean Platelet Volume 8.7 fL Neutrophils (%) (Auto) 72.5 % Lymphocytes (%) (Auto) 13.2 % Monocytes (%) (Auto) 11.6 % Eosinophils (%) (Auto) 2.2 % Basophils (%) (Auto) 0.5 % Neutrophils # (Auto) 2.68 K/uL Lymphocytes # (Auto) 0.49 K/uL Monocytes # (Auto) 0.43 K/uL Eosinophils # (Auto) 0.08 K/uL Basophils # (Auto) 0.02 K/uL RDW Standard Deviation 65.0 fL RDW Coefficient of Variation 22.1 % Immature Granulocyte % (Auto) 0.0 % Immature Granulocyte # (Auto) 0.00 K/uL Large Platelets 1+ Anisocytosis PRESENT Prothrombin Time 13.3 SECONDS Prothromb Time International Ratio 1.3 Activated Partial Thromboplast Time 30.6 SECONDS Partial Thromboplastin Ratio 1.2 Sodium Level 125 mmol/L Potassium Level 4.5 mmol/L Chloride Level 91 mmol/L Carbon Dioxide Level 22 mmol/L Anion Gap 12.0 mmol/L Blood Urea Nitrogen 7 mg/dl Creatinine 0.71 mg/dl Est Creatinine Clear Calc Drug Dose 158.2 ml/min Estimated GFR () 125.9 Estimated GFR (Non- 108.6 BUN/Creatinine Ratio 9.9 Random Glucose 185 mg/dl Calcium Level 7.9 mg/dl Total Bilirubin 2.0 mg/dl Aspartate Amino Transf (AST/SGOT) 264 U/L Alanine Aminotransferase (ALT/SGPT) 64 U/L Alkaline Phosphatase 317 U/L Total Protein 5.8 gm/dl Albumin 2.4 gm/dl Globulin 3.4 gm/dl Albumin/Globulin Ratio 0.7 Assessment & Plan I personally reviewed his peripheral blood by [facility]. His WBCs are primarily neutrophils which are mature without hypersegmentation or toxic granulation. His RBCs reveal aniso and poikilocytosis with occasional pencil forms and very rare schistocytes. Reticulocytes were also increased. There was thrombocytopenia without platelet clumps, though there were occasional giant platelets. No immature or marrow forms were seen in the periphery. His acute drop in hemoglobin is most likely related to GI bleeding. He has known gastric angioectasias and his stool is heme positive. He was already fairly anemic, so he could have dropped a gram or two without losing enough blood to give him gross melena. He is also deficient in several micronutrients, including iron and folate. I would start him on folate 1 mg daily while he is here (he was supposed to be taking it as an outpatient but only just started). He will be transfused, so we can probably hold off on iron infusions for now and resume them as an outpatient. His platelets could be down for several reasons, though the acute nature of the decline (they fell in 1 week) is more worrisome. He did just start azithromycin , but he started on the day that his platelets were low. While some antibiotics do cause very acute, immune-mediated thrombocytopenia, this is relatively rare and still generally doesn't happen the same day the drug is started. He likely has some splenomegaly from liver disease and his alcohol consumption is likely also a contributing factor, as alcohol is directly toxic to platelets. His viral syndrome may be suppressing his marrow as well. Bleeding can drop your platelets, but usually this is seen with hemorrhage rather than a slower bleed. Given his viral illness symptoms, I would screen him for viral hepatitis and HIV as a start. He does not appear to be immunosuppressed, so I'm not sure CMV or EBV are needed at this time. I would also CT his abdomen, in addition to the GI consult that has already been ordered.
[2018-01-02 11:19] VITALS: BP 137/68; PULSE 128; TEMP 36.9; O2SAT 97
[2018-01-02 15:00] VITALS: BP 134/61; PULSE 117; TEMP 36.8; O2SAT 97
--- NOTE | 2018-01-02 15:03 | Gastrointestinal Consultation ---
Gastrointestinal Consultation Date of Consultation: Jan 02, 2018 Attending Physician: Dr Stuart Arroyo Consulting Physician: Dr Ulisses Sousa Reason for Consultation: GI bleeding History of Present Illness Patient is a 52 year old male [facility] chief complaint of low Hgb. HPI He was sent to ER with low Hgb 7.2 and low plts. On reviewing [facility] EMR he had EGD 10/14/[address] Hensley showing 15 mm gastric polyp removed path hyperplastic and GAVE treated with APC. A repeat EGD recommended but not done secondary to sturggling wiht URI whih he still has. He has no abd pain. He does not see black nor bloody stools. Rectal in ER heme positive brown stool. He did see DR Berman in the office last 11/02/17 and at that time was f/u for possible cirrhosis noted on CT scan but fibrotest blood test showed only minimal fibrosis. Colonoscopy done by Dr Campbell 04/2017 had 3 polyps in TC removed. Past Medical/Surgical History Medical Problems: (1) Anemia Status: Acute (2) Elevated liver enzymes Status: Acute (3) GI bleed Status: Acute (4) Hyponatremia Status: Acute (5) Hyponatremia Status: Acute (6) Thrombocytopenia Status: Acute Family History Cancer Diabetes mellitus Hypertension Social History Smoking Status: Unknown if Ever Smoked Alcohol Use: occasionally Drug Use: none Marital Status: Housing Status: lives with significant other Occupation Status: employed Allergies Coded Allergies: Penicillins (Verified Allergy, Intermediate, FACIAL RASH, 11/19/17) Hydrochlorothiazide w/Triamterene (Verified Allergy, Unknown, UNKNOWN, ) Simvastatin (Verified Allergy, Unknown, UNKNOWN, 01/01/18) Rosuvastatin (Verified Adverse Reaction, Unknown, MUSCLE PAIN, 11/19/17) Current Medications Home Meds and Scripts Medications Dose Route/Sig Max Daily Dose Days Date Category Ativan (Lorazepam) 0.5 Mg Tab 0.5 Mg PO BID PRN 01/01/18 Reported Singulair (Montelukast Sodium) 10 Mg Tab 10 Mg PO DAILY 01/01/18 Reported Venlafaxine Extended Rel (Venlafaxine Hcl) 75 Mg Cap 75 Mg PO DAILY 01/01/18 Reported Vitamin D (Cholecalciferol) 2,000 Unit Cap 2,000 Units PO QAM 01/01/18 Reported Pravachol (Pravastatin Sodium) 20 Mg Tab 20 Mg PO HS 01/01/18 Reported Levothyroxine Sodium 200 Mcg Tab 200 Mcg PO DAILY 90 01/01/18 Reported Levothyroxine Sodium 25 Mcg Tab 25 Mg PO DAILY 90 01/01/18 Reported Tiazac (Diltiazem HCl) 120 Mg Capcr 120 Mg PO QPM 01/01/18 Reported Tessalon Perles (Benzonatate) 100 Mg Cap 1-2 Cap PO TID PRN 5 01/01/18 Reported Zithromax (Azithromycin) 250 Mg Tab 250 Mg PO DAILY 01/01/18 Reported Aspirin Ec (Aspirin) 81 Mg Tab 81 Mg PO DAILY 01/01/18 Reported Lexapro (Escitalopram Oxalate) 20 Mg Tab 20 Mg PO QAM 11/19/17 Reported Prilosec (Omeprazole) 40 Mg Cap 40 Mg PO QAM 11/19/17 Reported Vitamin E (Tocopheryl Acet,Dl-Alpha) 100 Interunit Cap 1 Cap PO DAILY 10/02/17 Reported Co Q 10 (Coenzyme Q10 (Ubidecarenone)) 100 Mg Cap 100 Mg PO DAILY 10/01/17 Reported Diovan (Valsartan) 320 Mg Tab 320 Mg PO QAM 01/08/17 Reported Nasacort Allergy 24Hr (Triamcinolone Acetonide (Nasal) 55 Mcg/Act Spr 2 [place] PERLA QAM 01/08/17 Reported Multivitamin (Multiple Vitamin) 1 Tab Tab 1 Tab PO QAM 01/08/17 Reported Zyrtec (Cetirizine HCl) 10 Mg Tab 10 Mg PO QAM 10/20/16 Reported novoLOG INSULIN PUMP (Insulin Aspart) 1 Ea Inj 1 Ea N/A UD 10/20/16 Reported Review of Systems see HPI. Otherwise 10 ROS negative. Physical Exam Date Time Temp Pulse Resp B/P (MAP) Pulse Ox O2 Delivery O2 Flow Rate FiO2 01/02/18 12:15 Room Air 01/02/18 11:19 36.9 128 19 137/68 (91) 97 Room Air 01/02/18 07:45 Room Air 01/02/18 07:03 36.8 116 18 121/55 (77) 98 CPAP 01/02/18 04:41 37.0 114 20 132/60 (84) 97 High Flow Oxygen 01/02/18 04:00 Room Air 01/02/18 00:01 Room Air 01/01/18 23:42 37.1 106 20 148/70 (96) 95 Room Air 01/01/18 23:12 37.0 115 20 152/75 Room Air 01/01/18 22:40 37.0 115 20 152/75 (100) 99 Room Air 01/01/18 21:38 106 20 148/70 99 01/01/18 18:51 104 18 160/83 100 Room Air 01/01/18 17:14 36.6 104 20 127/65 99 Room Air General Appearance: WD/WN, no apparent distress ENT: hearing grossly normal Respiratory/Chest: lungs clear Cardiovascular: regular rate, rhythm Abdomen: normal bowel sounds, non tender, soft Extremities: normal range of motion, normal inspection Skin: no jaundice Laboratory Results Last 24 Hours Test 01/01/18 18:20 01/01/18 21:30 01/01/18 23:30 01/02/18 00:06 White Blood Count 4.10 K/uL Red Blood Count 2.63 M/uL Hemoglobin 7.2 g/dL 6.6 g/dL Hematocrit 21.3 % 19.6 % Mean Corpuscular Volume 81.0 fL Mean Corpuscular Hemoglobin 27.4 pg Mean Corpuscular Hemoglobin Concent 33.8 g/dl Platelet Count 56 K/uL Mean Platelet Volume 8.6 fL Neutrophils (%) (Auto) 66.0 % Lymphocytes (%) (Auto) 16.3 % Monocytes (%) (Auto) 12.9 % Eosinophils (%) (Auto) 4.1 % Basophils (%) (Auto) 0.5 % Neutrophils # (Auto) 2.70 K/uL Lymphocytes # (Auto) 0.67 K/uL Monocytes # (Auto) 0.53 K/uL Eosinophils # (Auto) 0.17 K/uL Basophils # (Auto) 0.02 K/uL RDW Standard Deviation 63.3 fL RDW Coefficient of Variation 21.6 % Immature Granulocyte % (Auto) 0.2 % Immature Granulocyte # (Auto) 0.01 K/uL Platelet Estimate DECREASED Hypochromasia PRESENT Anisocytosis PRESENT Prothrombin Time 12.7 SECONDS Prothromb Time International Ratio 1.2 Activated Partial Thromboplast Time 29.7 SECONDS Partial Thromboplastin Ratio 1.1 Sodium Level 125 mmol/L Potassium Level 4.3 mmol/L Chloride Level 91 mmol/L Carbon Dioxide Level 27 mmol/L Anion Gap 8.0 mmol/L Blood Urea Nitrogen 7 mg/dl Creatinine 0.98 mg/dl Est Creatinine Clear Calc Drug Dose 114.6 ml/min Estimated GFR () 103.0 Estimated GFR (Non- 88.9 BUN/Creatinine Ratio 6.9 Random Glucose 136 mg/dl Osmolality 303 mOsm/kg Calcium Level 8.6 mg/dl Total Bilirubin 1.6 mg/dl Aspartate Amino Transf (AST/SGOT) 351 U/L Alanine Aminotransferase (ALT/SGPT) 81 U/L Alkaline Phosphatase 365 U/L Total Protein 6.5 gm/dl Albumin 2.7 gm/dl Globulin 3.8 gm/dl Albumin/Globulin Ratio 0.7 Bedside Glucose 142 mg/dl Urine Osmolality 589 mOms/kg Test 01/02/18 02:57 01/02/18 03:30 01/02/18 04:36 01/02/18 08:13 Bedside Glucose 189 mg/dl 215 mg/dl Stool Occult Blood POSITIVE White Blood Count 3.70 K/uL Red Blood Count 2.37 M/uL Hemoglobin 6.6 g/dL Hematocrit 19.4 % Mean Corpuscular Volume 81.9 fL Mean Corpuscular Hemoglobin 27.8 pg Mean Corpuscular Hemoglobin Concent 34.0 g/dl Platelet Count 49 K/uL Mean Platelet Volume 8.7 fL Neutrophils (%) (Auto) 72.5 % Lymphocytes (%) (Auto) 13.2 % Monocytes (%) (Auto) 11.6 % Eosinophils (%) (Auto) 2.2 % Basophils (%) (Auto) 0.5 % Neutrophils # (Auto) 2.68 K/uL Lymphocytes # (Auto) 0.49 K/uL Monocytes # (Auto) 0.43 K/uL Eosinophils # (Auto) 0.08 K/uL Basophils # (Auto) 0.02 K/uL RDW Standard Deviation 65.0 fL RDW Coefficient of Variation 22.1 % Immature Granulocyte % (Auto) 0.0 % Immature Granulocyte # (Auto) 0.00 K/uL Large Platelets 1+ Anisocytosis PRESENT Prothrombin Time 13.3 SECONDS Prothromb Time International Ratio 1.3 Activated Partial Thromboplast Time 30.6 SECONDS Partial Thromboplastin Ratio 1.2 Sodium Level 125 mmol/L Potassium Level 4.5 mmol/L Chloride Level 91 mmol/L Carbon Dioxide Level 22 mmol/L Anion Gap 12.0 mmol/L Blood Urea Nitrogen 7 mg/dl Creatinine 0.71 mg/dl Est Creatinine Clear Calc Drug Dose 158.2 ml/min Estimated GFR () 125.9 Estimated GFR (Non- 108.6 BUN/Creatinine Ratio 9.9 Random Glucose 185 mg/dl Calcium Level 7.9 mg/dl Total Bilirubin 2.0 mg/dl Aspartate Amino Transf (AST/SGOT) 264 U/L Alanine Aminotransferase (ALT/SGPT) 64 U/L Alkaline Phosphatase 317 U/L Total Protein 5.8 gm/dl Albumin 2.4 gm/dl Globulin 3.4 gm/dl Albumin/Globulin Ratio 0.7 Test 01/02/18 11:50 Bedside Glucose 272 mg/dl Impression anemia heme postive brown stool GAVE Discussed with patient and (present for H and P) regarding did he think from URI standpoint was he ready to do EGD. He thinks he is not ready and wants to do wait for outpt EGD to follow up on GAVE. If you want to give him PPI in case has some element of PUD in the meantime, that would be reasonable. Discussed with Dr Arroyo. Will sign off. Please call for further questions.
[2018-01-02] MEDS ORDERED: INSULIN ASPART 100 UNITS/ML VIAL SC PRN (18:15)
[2018-01-02] MEDS: NovoLOG INSULIN PUMP SCH ×2 (18:29→21:28)
[2018-01-02 19:19] VITALS: BP 137/75; PULSE 115; TEMP 36.9; O2SAT 100
[2018-01-02] MEDS ORDERED: NURSING VERBAL MED ORDER ONE (20:00)
[2018-01-02] MEDS ORDERED: CETIRIZINE HCL 10 MG TAB PO ONE (20:15)
[2018-01-02] MEDS ORDERED: TRIAMCINOLONE ACET NASAL SPRAY 10.8ML BTL NAE ONE (20:15)
[2018-01-02] MEDS ORDERED: MONTELUKAST SOD 10 MG TAB PO ONE (20:15)
[2018-01-02 23:30] VITALS: BP 138/65; PULSE 117; TEMP 36.4; O2SAT 99
[2018-01-03] VITALS (14 sets, daily range): BP systolic 123–156; BP diastolic 60–80; PULSE 104–117; TEMP 36.6–37.2; O2SAT 94–99
[2018-01-03] MEDS: LORAZEPAM 1 MG TAB PO PRN ×3 (01:01→14:29)
[2018-01-03] MEDS: SODIUM CHLORIDE 0.9% 1000ML 1,000 ML IV SCH (04:17)
[2018-01-03] MEDS: LEVOTHYROXINE 25 MCG TAB PO SCH (05:34)
[2018-01-03] MEDS: LEVOTHYROXINE 200 MCG TAB PO SCH (05:35)
--- NOTE | 2018-01-03 06:05 | DIAGNOSTIC IMAGING REPORT ---
ABD/PELVIS IV AND ORAL CONT CT DOSE: 1477.32 mGy.cm HISTORY: Pain eval for splenomegaly and liver fibrosis TECHNIQUE: Multiaxial CT images of the abdomen and pelvis were performed following the use of intravenous and oral contrast. A dose lowering technique was utilized adhering to the principles of ALARA. COMPARISON STUDY: None. FINDINGS: Small right and to a lesser extent left pleural effusion. Right basilar atelectatic change. Findings consistent with hepatic cirrhosis. Moderate perihepatic ascites. Several upper abdominal varices. Mild splenomegaly. Small amount of perisplenic ascites. Mild body wall anasarca. Nonspecific small bowel enteritis. Nonobstructive colonic bowel pattern. IMPRESSION: 1. Mild abdominal and pelvic ascites. 2. Small bowel enteritis. 3. Scattered varices. 4. Mild splenomegaly. 5. Nonobstructive bowel pattern. 6. Anasarca. 7. Bilateral pleural effusions with right basilar atelectasis. The above report was generated using voice recognition software. It may contain grammatical, syntax or spelling errors. Electronically signed by: Juan Francisco Baig M.D. 01/03/2018 6:04 AM Dictated Date/Time: 01/03/2018 6:01 AM
[2018-01-03 07:23] LABS: HEMATOCRIT 23.3 % (42-52); HEMOGLOBIN 7.8 g/dL (14.0-18.0); MEAN CELL VOLUME 84.7 fL (80-100); MEAN CORPUSCULAR HEMOGLOBIN 28.4 pg (25-34); MEAN CORPUSCULAR HGB CONC 33.5 g/dl (32-36); RED CELL DISTRIBUTION WIDTH SD 65.7 fL (36.4-46.3); WHITE BLOOD COUNT 3.93 K/uL (4.8-10.8)
[2018-01-03 07:38] LABS: MEAN PLATELET VOLUME 9.4 fL (7.4-10.4); PLATELET COUNT 68 K/uL (130-400)
[2018-01-03 07:59] LABS: ALBUMIN 2.4 gm/dl (3.4-5.0); CALCIUM 8.1 mg/dl (8.5-10.1); CREATININE 0.96 mg/dl (0.60-1.40); TOTAL PROTEIN 5.9 gm/dl (6.4-8.2)
[2018-01-03 08:04] LABS: BASO % 0.8 %; BASO ABS # 0.03 K/uL (0-0.2); EOS % 4.8 %; EOS ABS # 0.19 K/uL (0-0.5); LYMPH % 17.6 %; LYMPH ABS # 0.69 K/uL (1.2-3.4); MONO % 16.8 %; MONO ABS # 0.66 K/uL (0.11-0.59); NEUT ABS # 2.36 K/uL (1.4-6.5)
[2018-01-03] MEDS: NovoLOG INSULIN PUMP SCH ×4 (08:09→21:00)
[2018-01-03] MEDS: CHOLECALCIFEROL 1000 INTER.UNIT TAB PO SCH (08:11)
[2018-01-03] MEDS: VALSARTAN 80 MG TAB PO SCH (08:11)
[2018-01-03] MEDS: PANTOprazole SOD 40 MG TAB PO SCH (08:11)
[2018-01-03] MEDS: TOCOPHERYL, DL-ALPHA 100 INTERUNIT CAP PO SCH (08:11)
[2018-01-03] MEDS: MONTELUKAST SOD 10 MG TAB PO SCH (08:11)
[2018-01-03] MEDS: VENLAFAXINE HCL XR 75 MG CAPXR PO SCH (08:11)
--- NOTE | 2018-01-03 09:04 | Family Medicine Progress Note ---
Progress Note Date of Service Jan 03, 2018. Subjective Pt evaluation today including: conversation w/ patient Spoke with patient both earlier this morning as well as on attending rounds later in the morning. Total conversation length was well over one hour. He had multiple questions/concerns about his potential need for future transfusions , the ability to reserve blood for future use, and the timing of an EGD. The patient asked if he could be discharged from the hospital, go home for perhaps 24-36 hours, and then be readmitted to the hospital to obtain his EGD. He wished to do this because "I do not want to be stuck here one more day." The patient expressed concerns about the level of his hepatic fibrosis based on the results of previous outpatient evaluations. Symptomatically, the patient states he otherwise feels about the same as yesterday, only complaining about his lack of rest in the hospital. He denies any chest pain, shortness of breath , abdominal pain, any noted bleeding or dark stools, or any other acute physical concerns. Constitutional: No fever, No chills Respiratory: + cough (rare), No shortness of breath Cardiovascular: + edema, No chest pain Abdomen: No pain, No nausea, No vomiting Neurologic: + problem reported (tremor) Medications Current Inpatient Medications Medications (Trade) Dose Ordered Sig/Mike Route Start Time Stop Time Status Last Admin Dose Admin Sodium Chloride 1,000 ml @ 100 mls/hr Q10H IV 01/01/18 23:00 01/31/18 22:59 01/03/18 04:17 100 MLS/HR Magnesium Hydroxide (Milk Of Magnesia Susp) 30 ml Q12H PRN PO 01/01/18 20:30 01/31/18 20:29 Ondansetron HCl (Zofran Inj) 4 mg Q6H PRN IV 01/01/18 20:30 01/31/18 20:29 Polyethylene (Miralax Powder Packet) 17 gm DAILY PRN PO 01/01/18 20:30 01/31/18 20:29 Glucose (Glucose 40% Gel) 15-30 GRAMS 15 GRAMS... UD PRN PO 01/01/18 22:30 01/31/18 22:29 Glucose (Glucose Chew Tab) 4-8 Tablets 4 Tabl... UD PRN PO 01/01/18 22:30 01/31/18 22:29 Dextrose (Dextrose 50% 50ML Syringe) 25-50ML OF 50% DW IV FOR... UD PRN IV 01/01/18 22:30 01/31/18 22:29 Glucagon (Glucagon Inj) 1 mg UD PRN SQ 01/01/18 22:30 01/31/18 22:29 Menthol (Nice Amaury) 1 amaury PRN PRN AMAURY 01/02/18 01:15 02/01/18 01:14 01/02/18 01:24 1 AMAURY Pantoprazole Sodium (Protonix Tab) 40 mg QAM PO 01/03/18 09:00 02/02/18 08:59 01/03/18 08:11 40 MG Folic Acid (Folvite Tab) 1 mg QAM PO 01/03/18 09:00 02/02/18 08:59 01/03/18 08:11 1 MG Insulin Aspart (novoLOG INSULIN PUMP) 1 ea ACHS N/A 01/02/18 18:14 02/01/18 18:13 01/03/18 08:09 1 EA Insulin Aspart (novoLOG ASPART) SLIDING SCALE PRN PRN SC 01/02/18 18:15 02/01/18 18:14 Diltiazem HCl (TIAzac CAP) 120 mg QPM PO 01/03/18 21:00 02/02/18 20:59 Levothyroxine Sodium (Synthroid Tab) 25 mcg DAILYBB PO 01/03/18 06:30 02/02/18 06:29 01/03/18 05:34 25 MCG Levothyroxine Sodium (Synthroid Tab) 200 mcg DAILYBB PO 01/03/18 06:30 02/02/18 06:29 01/03/18 05:35 200 MCG Montelukast Sodium (Singulair Tab) 10 mg DAILY PO 01/03/18 09:00 02/02/18 08:59 01/03/18 08:11 10 MG Pravastatin Sodium (Pravachol Tab) 20 mg HS PO 01/03/18 21:00 02/02/18 20:59 hb-Nghhu-Ecrtvmaeiy Acetate (Vitamin E Cap) 100 interunit DAILY PO 01/03/18 09:00 02/02/18 08:59 01/03/18 08:11 100 INTERUNIT Valsartan (Diovan Tab) 320 mg QAM PO 01/03/18 09:00 02/02/18 08:59 01/03/18 08:11 320 MG Venlafaxine HCl (effeXOR EXTENDED REL CAP) 75 mg DAILY PO 01/03/18 09:00 02/02/18 08:59 01/03/18 08:11 75 MG Cholecalciferol (Vitamin D Tab) 2,000 inter.unit QAM PO 01/03/18 09:00 02/02/18 08:59 01/03/18 08:11 2,000 INTER.UNIT Lorazepam (Ativan Tab) PRN Dosing -Active Protocol UD PRN PO 01/03/18 00:30 02/02/18 00:29 01/03/18 05:29 2 MG Objective Vital Signs Date Time Temp Pulse Resp B/P (MAP) Pulse Ox O2 Delivery O2 Flow Rate FiO2 01/03/18 07:45 Room Air 01/03/18 07:12 37.2 115 20 123/60 (81) 95 Room Air 01/03/18 04:47 36.9 106 18 132/80 94 01/03/18 04:15 36.9 114 18 144/67 96 01/03/18 04:00 Room Air 01/03/18 03:00 37.0 111 18 134/67 98 01/03/18 02:40 36.9 111 16 131/67 97 01/03/18 02:15 36.7 110 17 135/64 96 01/03/18 01:45 36.7 117 18 146/76 97 01/03/18 01:30 36.7 114 18 133/66 95 01/03/18 01:15 36.7 112 19 139/64 95 01/03/18 01:00 36.6 114 16 133/64 94 01/03/18 00:42 36.7 114 14 133/67 99 01/03/18 00:00 Room Air 01/02/18 23:30 36.4 117 20 138/65 (89) 99 Room Air 01/02/18 20:00 Room Air 01/02/18 19:19 36.9 115 19 137/75 (95) 100 Room Air 01/02/18 16:00 Room Air 01/02/18 15:00 36.8 117 18 134/61 (85) 97 Room Air 01/02/18 12:15 Room Air 01/02/18 11:19 36.9 128 19 137/68 (91) 97 Room Air Physical Exam Notes: General Appearance: Awake, alert & oriented, sitting on side of bed and later in chair, comfortable in general, NAD. CV: +S1S2 regular tachycardia, no murmur. Pulm: CTA (B). Abdomen: +BS, soft, non-tender, non-distended but has a self-reducing diastasis recti. Two small (couple cm) areas of contusion on the abdominal wall. Extremities: 1+ bilateral (appears more chronic) love edema. No calf tenderness. Moving all extremities naturally and easily. Does have a bilateral intention tremor and a mild right hand resting tremor. Neuro: No gross neuro deficits. Lines: PIV Laboratory Results 01/03/18 06:44 Red Blood Count 2.75, Mean Corpuscular Volume 84.7, Mean Corpuscular Hemoglobin 28.4, Mean Corpuscular Hemoglobin Concent 33.5, Mean Platelet Volume 9.4, Neutrophils (%) (Auto) 60.0, Lymphocytes (%) (Auto) 17.6, Monocytes (%) (Auto) 16.8, Eosinophils (%) (Auto) 4.8, Basophils (%) (Auto) 0.8, Neutrophils # (Auto ) 2.36, Lymphocytes # (Auto) 0.69, Monocytes # (Auto) 0.66, Eosinophils # (Auto ) 0.19, Basophils # (Auto) 0.03 01/03/18 06:44 01/03/18 09:26 Test 01/03/18 06:44 01/03/18 07:49 01/03/18 09:26 White Blood Count 3.93 K/uL (4.8-10.8) Red Blood Count 2.75 M/uL (4.7-6.1) Hemoglobin 7.8 g/dL (14.0-18.0) Hematocrit 23.3 % (42-52) Mean Corpuscular Volume 84.7 fL (80-100) Mean Corpuscular Hemoglobin 28.4 pg (25-34) Mean Corpuscular Hemoglobin Concent 33.5 g/dl (32-36) Platelet Count 68 K/uL (130-400) Mean Platelet Volume 9.4 fL (7.4-10.4) Neutrophils (%) (Auto) 60.0 % Lymphocytes (%) (Auto) 17.6 % Monocytes (%) (Auto) 16.8 % Eosinophils (%) (Auto) 4.8 % Basophils (%) (Auto) 0.8 % Neutrophils # (Auto) 2.36 K/uL (1.4-6.5) Lymphocytes # (Auto) 0.69 K/uL (1.2-3.4) Monocytes # (Auto) 0.66 K/uL (0.11-0.59) Eosinophils # (Auto) 0.19 K/uL (0-0.5) Basophils # (Auto) 0.03 K/uL (0-0.2) RDW Standard Deviation 65.7 fL (36.4-46.3) RDW Coefficient of Variation 22.0 % (11.5-14.5) Immature Granulocyte % (Auto) 0.0 % Immature Granulocyte # (Auto) 0.00 K/uL (0.00-0.02) Giant Platelets 1+ Polychromasia 1+ Anisocytosis PRESENT Anion Gap 7.0 mmol/L (3-11) Est Creatinine Clear Calc Drug Dose 123.9 ml/min Estimated GFR () 105.6 Estimated GFR (Non- 91.2 BUN/Creatinine Ratio 14.5 (10-20) Calcium Level 8.1 mg/dl (8.5-10.1) Total Bilirubin 2.8 mg/dl (0.2-1) Alanine Aminotransferase (ALT/SGPT) 59 U/L (12-78) Alkaline Phosphatase 273 U/L (45-117) Total Protein 5.9 gm/dl (6.4-8.2) Albumin 2.4 gm/dl (3.4-5.0) Globulin 3.5 gm/dl (2.5-4.0) Albumin/Globulin Ratio 0.7 (0.9-2) Bedside Glucose 106 mg/dl (70-99) Aspartate Amino Transf (AST/SGOT) 217 U/L (15-37) Assessment and Plan 52 yo male was referred to the emergency department for abnormal labs via his oncologist's office. He was noted to have a hemoglobin of 7.2 and a platelet count of 56. PMH: Diabetes, hypertension, hyponatremia, hypothyroidism, depression. Anemia and thrombocytopenia: Hemoglobin dropped to 6.6 and platelets to 49. Hematology consulted, please see their note. Hemoccult positive in the ER as well. His anemia is thought to be due to GI bleeding in the context of gastric angioectasias and GAVE. His thrombocytopenia is potentially due to multiple factors to include immune mediated vs viral vs alcohol vs bone marrow suppression as sources. Started on folate 1 mg daily. - Hemeonc onboard. Recommended checking a direct bilirubin and haptoglobin ( ordered). Also recommended obtaining a liver ultrasound to evaluate for thrombosis. GI bleeding: Thought to be due to an upper GI bleed, since he has a history of gastric angioectasias. Was started on Protonix drip and now p.o. twice daily. No clear evidence of ongoing massive GI bleed. Is hemodynamically stable. Received two units PRBCs on . follow on Hb levels have improved/stable. GI consulted. Initially patient elected to undergo an outpatient EGD. CT of his abdomen demonstrates multiple sequelae of hepatic fibrosis. After extensive discussion for over 45 minutes today, to include risks and benefits of pursuing inpatient versus outpatient EGD, the patient elected to remain in the hospital for inpatient study. Discussed with GI, plan for EGD tomorrow morning. Please see their updated note. Hyponatremia: Na 125, improved to 128, possibly secondary to potomania. Was also recently started on Effexor but has a history of hyponatremia prior to starting this. Monitoring. Transaminitis: AST of 351, ALT at 81, alk phos of 365. These levels are improving. History of liver fibrosis likely secondary to alcohol abuse. Chronic alcohol use: Patient states he drinks about 20 oz wine/day. AWSS protocol with ativan prn in place. Has required some p.o. dosing. Patient states his last period of abstinence was for two weeks back in April and denies any withdrawal symptoms at that time. Cough: Patient notes about three weeks with cough (prior to admit) and recent use of a azithromycin for the past 48 hours. Chest x-ray here showed some mild pulmonary vascular congestion with small pleural effusion but otherwise no evidence of infiltrate. He does not have an ongoing cough during interviews. Will hold his azithromycin for now. Diabetes: Presently controlled with the patient's on insulin pump. Offered assistance as needed. This afternoon, the patient's self dosed with 10 units of insulin in anticipation of eating his lunch although he was informed to be n.p.o. for his liver ultrasound. His blood sugar was noted to be 45, so he was given IV dextrose. Continue to monitor. Hypertension: Continue diovan and diltiazem Hyperlipidemia: Continue pravastatin Hypothyroidism: Continue Synthroid Code status: Full Diet: DM type 2 diet with carb counting. Plan for n.p.o. at midnight for likely EGD in the morning. DVT prophy: Chemical anticoagulation contraindicated due to GI bleed. SCD's (B) . PT/OT: Deferred. Disbo: Admit to telemetry. Resident Physician Supervision Note: I interviewed and examined the patient. Discussed with Dr. Gonzales and agree with findings and plan as documented in the note. Any exceptions or clarifications are listed here: None Documented By: Stuart Arroyo feeling anxious/upset about being in the hospital and wanting to get more rest. multiple lines of questioning in line with same conversation recounted to me in precepting dr Gonzales from visit this AM - which he believes was ~25mins; we then on revisit spend at least 45mins face to face in the room answering questions counselling/coordinating care vitals noted emotionally upset but no physical distress. no pallor or icterus d/w hematology as well acute / subacute GI bleeding - likely GAVE + EtOH abuse eroding stomach lining + mild coagulopathy from cirrhosis -- improved some w transfusion but not clearly enough to know that bleeding has stopped. not acutely hemorrhaging but explained to pt multiple times, at length, and in detail, that it's definitely not clear that he's done bleeding - and home w ongoing bleeding would likely lead to readmission at best, and catastrophe at worst. offered plan of inpt, follow Hgb, EGD vs f/u Hgb later today and if stable then can cautiously dc home w ongoing frequent (implied daily) Hgb checks and outpt EGD later this week - but this plan would obviously leave more responsibility and uncertainty on his shoulders. after further discussion he opts to stay and elects for EGD inpt cirrhosis - extensive discussion on CT + bili + INR all strongly suggest cirrhosis, but that nothing clearly suggests a "point of no return" - EtOH cessation strongly encouraged yet again EtOH abuse - strong desire to go home ??some from withdrawal and/or desire ( conscious or not) to drink? ongoing withdrawal management - currently seems minor at worst anxiety/desire to go home - overall i suspect he has a degree of denial of the severity of his situation - seems to have a skewed risk/benefit balance where his frustrations (while entirely understandable) certainly don't outweigh the risk to his well-being that his current medical situation can pose. continue to educate/re-educate, and assess stability. right now, however, with it not clear that bleeding has stopped, and with it too soon to be sure he'll not go through more severe withdrawal, it appears far safer to continue management inpt at this time >45mins in the room, face to face, as above, and as outlined by Dr Gonzales ( who also separately spent by his account at least 25mins face to face earlier) Resident Tracking Resident Involvement: Resident Care Provided Care Provided: Adult Hospital Medicine (inpatient)
[2018-01-03 10:20] LABS: POTASSIUM 3.7 mmol/L (3.5-5.1)
--- NOTE | 2018-01-03 11:42 | Hematology/Oncology Prog Note ---
Hematology/Onc Progress Note Date of Service Jan 03, 2018. Diagnoses GI bleeding Anemia Liver disease Medications Medications Administered Medications (Trade) Dose Ordered Sig/Mike Route Start Time Stop Time Status Last Admin Dose Admin Sodium Chloride 500 ml @ 999 mls/hr Q31M STAT IV 01/01/18 19:13 01/01/18 19:43 DC 01/01/18 19:22 999 MLS/HR Pantoprazole Sodium 80 mg/ Dextrose 120 ml @ 480 mls/hr TODAY@1930 ONCE IV 01/01/18 19:30 01/01/18 19:44 DC 01/01/18 20:35 480 MLS/HR Pantoprazole Sodium 40 mg/ Dextrose 100 ml @ 20 mls/hr Q5H IV 01/01/18 19:45 01/02/18 00:44 DC 01/01/18 20:35 20 MLS/HR Sodium Chloride 1,000 ml @ 100 mls/hr Q10H IV 01/01/18 23:00 01/31/18 22:59 01/03/18 04:17 100 MLS/HR Insulin Aspart (novoLOG ASPART) SLIDING SCALE G... ACHS SC 01/02/18 06:30 01/02/18 17:27 DC 01/02/18 12:41 3 UNITS Menthol (Nice Amaury) 1 amaury PRN PRN AMAURY 01/02/18 01:15 02/01/18 01:14 01/02/18 01:24 1 AMAURY Pantoprazole Sodium 40 mg/ Syringe 10 ml @ 5 mls/min DAILY@ IV 01/02/18 09:00 01/02/18 15:03 DC 01/02/18 08:17 5 MLS/MIN Lorazepam (Ativan Inj) 1 mg ONE PRN IV 01/02/18 08:30 01/02/18 20:11 DC 01/02/18 20:10 1 MG Lorazepam 1 mg/ Syringe 1 ml @ 1 mls/min TODAY@0845 ONCE IV 01/02/18 08:45 01/02/18 08:46 DC 01/02/18 08:45 1 MLS/MIN Lorazepam 1 mg/ Syringe 1 ml @ 1 mls/min TODAY@1245 ONCE IV 01/02/18 12:45 01/02/18 12:46 DC 01/02/18 12:38 1 MLS/MIN Pantoprazole Sodium (Protonix Tab) 40 mg QAM PO 01/03/18 09:00 02/02/18 08:59 01/03/18 08:11 40 MG Folic Acid (Folvite Tab) 1 mg QAM PO 01/03/18 09:00 02/02/18 08:59 01/03/18 08:11 1 MG Insulin Aspart (novoLOG INSULIN PUMP) 1 ea ACHS N/A 01/02/18 18:14 02/01/18 18:13 01/03/18 08:09 1 EA Cetirizine HCl (zyrTEC TAB) 10 mg ONE ONCE PO 01/02/18 20:15 01/02/18 20:16 DC 01/02/18 21:44 10 MG Montelukast Sodium (Singulair Tab) 10 mg ONE ONCE PO 01/02/18 20:15 01/02/18 20:16 DC 01/02/18 21:44 10 MG Triamcinolone Acetonide (Nasacort Allergy 24hr) 1 sprays ONE ONCE PERLA 01/02/18 20:15 01/02/18 20:16 DC 01/02/18 21:45 1 SPRAYS Levothyroxine Sodium (Synthroid Tab) 25 mcg DAILYBB PO 01/03/18 06:30 02/02/18 06:29 01/03/18 05:34 25 MCG Levothyroxine Sodium (Synthroid Tab) 200 mcg DAILYBB PO 01/03/18 06:30 02/02/18 06:29 01/03/18 05:35 200 MCG Montelukast Sodium (Singulair Tab) 10 mg DAILY PO 01/03/18 09:00 02/02/18 08:59 01/03/18 08:11 10 MG ka-Ycwgn-Aikrxvyyvg Acetate (Vitamin E Cap) 100 interunit DAILY PO 01/03/18 09:00 02/02/18 08:59 01/03/18 08:11 100 INTERUNIT Valsartan (Diovan Tab) 320 mg QAM PO 01/03/18 09:00 02/02/18 08:59 01/03/18 08:11 320 MG Venlafaxine HCl (effeXOR EXTENDED REL CAP) 75 mg DAILY PO 01/03/18 09:00 02/02/18 08:59 01/03/18 08:11 75 MG Cholecalciferol (Vitamin D Tab) 2,000 inter.unit QAM PO 01/03/18 09:00 02/02/18 08:59 01/03/18 08:11 2,000 INTER.UNIT Lorazepam (Ativan Tab) PRN Dosing -Active Protocol UD PRN PO 01/03/18 00:30 02/02/18 00:29 01/03/18 05:29 2 MG Subjective Mr. Castañeda is seated in a chair. He had no acute issues overnight. He has some intermittent coughing spells that are sometimes severe enough that he develops a transient nosebleed. He denies any gross hematochezia or melena. He denies any pain. He does note he started some new medication for anxiety in late September, which was around the time his liver issues came to attention. He doesn't recall the name. He has no other major complaints today. Review of Systems: Constitutional: No fever, No fatigue ENT: + unusual epistaxis Respiratory: + cough, No shortness of breath Cardiovascular: No chest pain Abdomen: No pain, No nausea, No GI bleeding Musculoskeletal: No joint pain, No muscle pain Heme: No abnormal bleeding/bruising, No night sweats Vital Signs Vital Signs Past 12 Hours Date Time Temp Pulse Resp B/P (MAP) Pulse Ox O2 Delivery O2 Flow Rate FiO2 01/03/18 07:45 Room Air 01/03/18 07:12 37.2 115 20 123/60 (81) 95 Room Air 01/03/18 04:47 36.9 106 18 132/80 94 01/03/18 04:15 36.9 114 18 144/67 96 01/03/18 04:00 Room Air 01/03/18 03:00 37.0 111 18 134/67 98 01/03/18 02:40 36.9 111 16 131/67 97 01/03/18 02:15 36.7 110 17 135/64 96 01/03/18 01:45 36.7 117 18 146/76 97 01/03/18 01:30 36.7 114 18 133/66 95 01/03/18 01:15 36.7 112 19 139/64 95 01/03/18 01:00 36.6 114 16 133/64 94 01/03/18 00:42 36.7 114 14 133/67 99 01/03/18 00:00 Room Air 01/02/18 23:30 36.4 117 20 138/65 (89) 99 Room Air Physical Exam Constitutional: General Apperance: obese Level of Distress: NAD Psychiatric: Mental Status: active & alert Orientation: oriented except where noted Lungs: Auscuitation: breath sounds normal Cardiovascular: Heart Auscultation: RRR Abdomen: Inspection & Palpation: soft, no tenderness, guarding & rebound Extremities: no edema Laboratory Last 24 Hours Test 01/02/18 11:50 01/02/18 15:50 01/02/18 16:54 01/02/18 20:20 Bedside Glucose 272 mg/dl 319 mg/dl 329 mg/dl 357 mg/dl Test 01/03/18 01:16 01/03/18 06:44 01/03/18 07:49 01/03/18 09:26 Bedside Glucose 234 mg/dl 106 mg/dl White Blood Count 3.93 K/uL Red Blood Count 2.75 M/uL Hemoglobin 7.8 g/dL Hematocrit 23.3 % Mean Corpuscular Volume 84.7 fL Mean Corpuscular Hemoglobin 28.4 pg Mean Corpuscular Hemoglobin Concent 33.5 g/dl Platelet Count 68 K/uL Mean Platelet Volume 9.4 fL Neutrophils (%) (Auto) 60.0 % Lymphocytes (%) (Auto) 17.6 % Monocytes (%) (Auto) 16.8 % Eosinophils (%) (Auto) 4.8 % Basophils (%) (Auto) 0.8 % Neutrophils # (Auto) 2.36 K/uL Lymphocytes # (Auto) 0.69 K/uL Monocytes # (Auto) 0.66 K/uL Eosinophils # (Auto) 0.19 K/uL Basophils # (Auto) 0.03 K/uL RDW Standard Deviation 65.7 fL RDW Coefficient of Variation 22.0 % Immature Granulocyte % (Auto) 0.0 % Immature Granulocyte # (Auto) 0.00 K/uL Giant Platelets 1+ Polychromasia 1+ Anisocytosis PRESENT Sodium Level 128 mmol/L Potassium Level mmol/L 3.7 mmol/L Chloride Level 95 mmol/L Carbon Dioxide Level 26 mmol/L Anion Gap 7.0 mmol/L Blood Urea Nitrogen 14 mg/dl Creatinine 0.96 mg/dl Est Creatinine Clear Calc Drug Dose 123.9 ml/min Estimated GFR () 105.6 Estimated GFR (Non- 91.2 BUN/Creatinine Ratio 14.5 Random Glucose 112 mg/dl Calcium Level 8.1 mg/dl Total Bilirubin 2.8 mg/dl Aspartate Amino Transf (AST/SGOT) U/L 217 U/L Alanine Aminotransferase (ALT/SGPT) 59 U/L Alkaline Phosphatase 273 U/L Total Protein 5.9 gm/dl Albumin 2.4 gm/dl Globulin 3.5 gm/dl Albumin/Globulin Ratio 0.7 Assessment & Plan Mr. Castañeda's CT is consistent with portal hypertension which strongly suggests cirrhosis. The acute change in his liver enzymes, bilirubin, and counts is more than I would anticipate from progression of chronic cirrhotic changes alone. His CT was not reported as demonstrating any evidence of portal venous thrombosis, but this possibility was not commented upon. He doesn't have any obvious new hepatotoxic exposures, though he started some new medication for anxiety in the last few months whose name he can't recall. His bili also continues to rise, which is worrisome. Finally, he managed to bleed himself down to the 6s in a relatively short period of time. I would be worried about discharging him without addressing the source of this bleeding. I also think we need more clarity on the etiology of his liver injury to rule out an acute component. Please check a direct bilirubin and haptoglobin, to rule out the possibility of hemolysis (though I doubt this). I would also consider additional imaging of his liver, such as a doppler ultrasound, to rule out the presence of a thrombosis. I also encouraged him to stay for an EGD. His reasons for deferring are vague and raise my concern that he may not follow up on this issue. Since he 's already here and in a controlled setting, this seems like an opportune time to address this issue.
--- NOTE | 2018-01-03 14:14 | Gastroenterology Progress Note ---
Progress Note Date of Service: Jan 03, 2018 Subjective Pt evaluation today including: conversation w/ patient, physical exam, chart review, lab review, review of studies, review of inpatient medication list cc f/u heme pos stool, GAVE HPI Primary team asked me to come back on case as they spoke with patient and he is now agreeable to staying until tomorrow to do EGD. He denies abd pain. A/P CT yesterday ascites, varices and cirrhosis. Review of Systems Respiratory: No shortness of breath Cardiac: No chest pain Medications Current Inpatient Medications Medications (Trade) Dose Ordered Sig/Mike Route Start Time Stop Time Status Last Admin Dose Admin Magnesium Hydroxide (Milk Of Magnesia Susp) 30 ml Q12H PRN PO 01/01/18 20:30 01/31/18 20:29 Ondansetron HCl (Zofran Inj) 4 mg Q6H PRN IV 01/01/18 20:30 01/31/18 20:29 Polyethylene (Miralax Powder Packet) 17 gm DAILY PRN PO 01/01/18 20:30 01/31/18 20:29 Glucose (Glucose 40% Gel) 15-30 GRAMS 15 GRAMS... UD PRN PO 01/01/18 22:30 01/31/18 22:29 Glucose (Glucose Chew Tab) 4-8 Tablets 4 Tabl... UD PRN PO 01/01/18 22:30 01/31/18 22:29 Dextrose (Dextrose 50% 50ML Syringe) 25-50ML OF 50% DW IV FOR... UD PRN IV 01/01/18 22:30 01/31/18 22:29 Glucagon (Glucagon Inj) 1 mg UD PRN SQ 01/01/18 22:30 01/31/18 22:29 Menthol (Nice Shannon) 1 shannon PRN PRN SHANNON 01/02/18 01:15 02/01/18 01:14 01/02/18 01:24 1 SHANNON Pantoprazole Sodium (Protonix Tab) 40 mg QAM PO 01/03/18 09:00 02/02/18 08:59 01/03/18 08:11 40 MG Folic Acid (Folvite Tab) 1 mg QAM PO 01/03/18 09:00 02/02/18 08:59 01/03/18 08:11 1 MG Insulin Aspart (novoLOG INSULIN PUMP) 1 ea ACHS N/A 01/02/18 18:14 02/01/18 18:13 01/03/18 12:27 1 EA Insulin Aspart (novoLOG ASPART) SLIDING SCALE PRN PRN SC 01/02/18 18:15 02/01/18 18:14 Diltiazem HCl (TIAzac CAP) 120 mg QPM PO 01/03/18 21:00 02/02/18 20:59 Levothyroxine Sodium (Synthroid Tab) 25 mcg DAILYBB PO 01/03/18 06:30 02/02/18 06:29 01/03/18 05:34 25 MCG Levothyroxine Sodium (Synthroid Tab) 200 mcg DAILYBB PO 01/03/18 06:30 02/02/18 06:29 01/03/18 05:35 200 MCG Montelukast Sodium (Singulair Tab) 10 mg DAILY PO 01/03/18 09:00 02/02/18 08:59 01/03/18 08:11 10 MG Pravastatin Sodium (Pravachol Tab) 20 mg HS PO 01/03/18 21:00 02/02/18 20:59 qk-Rfkhx-Bipzaogyti Acetate (Vitamin E Cap) 100 interunit DAILY PO 01/03/18 09:00 02/02/18 08:59 01/03/18 08:11 100 INTERUNIT Valsartan (Diovan Tab) 320 mg QAM PO 01/03/18 09:00 02/02/18 08:59 01/03/18 08:11 320 MG Venlafaxine HCl (effeXOR EXTENDED REL CAP) 75 mg DAILY PO 01/03/18 09:00 02/02/18 08:59 01/03/18 08:11 75 MG Cholecalciferol (Vitamin D Tab) 2,000 inter.unit QAM PO 01/03/18 09:00 02/02/18 08:59 01/03/18 08:11 2,000 INTER.UNIT Lorazepam (Ativan Tab) PRN Dosing -Active Protocol UD PRN PO 01/03/18 00:30 02/02/18 00:29 01/03/18 05:29 2 MG Objective Vital Signs Date Time Temp Pulse Resp B/P (MAP) Pulse Ox O2 Delivery O2 Flow Rate FiO2 01/03/18 12:04 36.6 111 18 146/73 (97) 96 Room Air 01/03/18 11:40 Room Air 01/03/18 07:45 Room Air 01/03/18 07:12 37.2 115 20 123/60 (81) 95 Room Air 01/03/18 04:47 36.9 106 18 132/80 94 01/03/18 04:15 36.9 114 18 144/67 96 01/03/18 04:00 Room Air 01/03/18 03:00 37.0 111 18 134/67 98 01/03/18 02:40 36.9 111 16 131/67 97 01/03/18 02:15 36.7 110 17 135/64 96 01/03/18 01:45 36.7 117 18 146/76 97 01/03/18 01:30 36.7 114 18 133/66 95 01/03/18 01:15 36.7 112 19 139/64 95 01/03/18 01:00 36.6 114 16 133/64 94 01/03/18 00:42 36.7 114 14 133/67 99 01/03/18 00:00 Room Air 01/02/18 23:30 36.4 117 20 138/65 (89) 99 Room Air 01/02/18 20:00 Room Air 01/02/18 19:19 36.9 115 19 137/75 (95) 100 Room Air 01/02/18 16:00 Room Air 01/02/18 15:00 36.8 117 18 134/61 (85) 97 Room Air Physical Exam General Appearance: WD/WN, no apparent distress Respiratory/Chest: lungs clear, no respiratory distress Cardiovascular: regular rate, rhythm Abdomen: normal bowel sounds, non tender, soft, no organomegaly Neurologic/Psych: normal mood/affect Skin: normal color Laboratory Results Last 24 Hours Test 01/02/18 15:50 01/02/18 16:54 01/02/18 20:20 01/03/18 01:16 Bedside Glucose 319 mg/dl 329 mg/dl 357 mg/dl 234 mg/dl Test 01/03/18 06:44 01/03/18 07:49 01/03/18 09:26 White Blood Count 3.93 K/uL Red Blood Count 2.75 M/uL Hemoglobin 7.8 g/dL Hematocrit 23.3 % Mean Corpuscular Volume 84.7 fL Mean Corpuscular Hemoglobin 28.4 pg Mean Corpuscular Hemoglobin Concent 33.5 g/dl Platelet Count 68 K/uL Mean Platelet Volume 9.4 fL Neutrophils (%) (Auto) 60.0 % Lymphocytes (%) (Auto) 17.6 % Monocytes (%) (Auto) 16.8 % Eosinophils (%) (Auto) 4.8 % Basophils (%) (Auto) 0.8 % Neutrophils # (Auto) 2.36 K/uL Lymphocytes # (Auto) 0.69 K/uL Monocytes # (Auto) 0.66 K/uL Eosinophils # (Auto) 0.19 K/uL Basophils # (Auto) 0.03 K/uL RDW Standard Deviation 65.7 fL RDW Coefficient of Variation 22.0 % Immature Granulocyte % (Auto) 0.0 % Immature Granulocyte # (Auto) 0.00 K/uL Giant Platelets 1+ Polychromasia 1+ Anisocytosis PRESENT Sodium Level 128 mmol/L Potassium Level mmol/L 3.7 mmol/L Chloride Level 95 mmol/L Carbon Dioxide Level 26 mmol/L Anion Gap 7.0 mmol/L Blood Urea Nitrogen 14 mg/dl Creatinine 0.96 mg/dl Est Creatinine Clear Calc Drug Dose 123.9 ml/min Estimated GFR () 105.6 Estimated GFR (Non- 91.2 BUN/Creatinine Ratio 14.5 Random Glucose 112 mg/dl Calcium Level 8.1 mg/dl Total Bilirubin 2.8 mg/dl Aspartate Amino Transf (AST/SGOT) U/L 217 U/L Alanine Aminotransferase (ALT/SGPT) 59 U/L Alkaline Phosphatase 273 U/L Total Protein 5.9 gm/dl Albumin 2.4 gm/dl Globulin 3.5 gm/dl Albumin/Globulin Ratio 0.7 Bedside Glucose 106 mg/dl Assessment and Plan anemia heme postive brown stool GAVE cirrhosis with portal HTN varices So the fibrosis blood test done recently showing minimal fibrosis is false negative. He clearly has cirrhosis with splenomegaly and varices and ascites. Pt asking if he can live a relatively normal life with this cirrhosis. I responded if he stops alcohol completely and loses substantial amount of weight so STANLEY not contributing to further decline of liver, then that is may be possible. Plan EGD tomorrow 01/04/18. Can assess for varices and do APC of GAVE as needed. Procedure and risks explained which include but not limited to med reaction, bleeding, perforation, aspiration, and missed lesion.
[2018-01-03] MEDS: DEXTROSE 50% 50 ML SYR IV PRN ×2 (14:36→16:20)
[2018-01-03 15:04] LABS: HEMATOCRIT 24.4 % (42-52)
--- NOTE | 2018-01-03 17:41 | DIAGNOSTIC IMAGING REPORT ---
DUPLEX PORTAL HEPATIC VEINS CLINICAL HISTORY: increasing billirubin, liver cirrhosis ?portal vein thrombosis hepatic cirrhosis TECHNIQUE: Doppler COMPARISON STUDY: CT 01/02/2018 FINDINGS: Limited exam as the patient was not able to cooperate. All major portal and hepatic venous structures appear patent. No evidence for thrombosis. IMPRESSION: Limited exam showing no vascular abnormality of the portal and hepatic venous structures. The above report was generated using voice recognition software. It may contain grammatical, syntax or spelling errors. Electronically signed by: Juan Francisco Baig M.D. 01/03/2018 5:40 PM Dictated Date/Time: 01/03/2018 5:39 PM
[2018-01-03] MEDS ORDERED: PRAVASTATIN SOD 20 MG TAB PO SCH (21:00)
[2018-01-03] MEDS ORDERED: DILTIAZEM HCL 120 MG EXT REL CAP PO SCH (21:00)
[2018-01-04 05:25] LABS: HEMATOCRIT 22.5 % (42-52); HEMOGLOBIN 7.6 g/dL (14.0-18.0); MEAN CELL VOLUME 85.6 fL (80-100); MEAN CORPUSCULAR HEMOGLOBIN 28.9 pg (25-34); MEAN CORPUSCULAR HGB CONC 33.8 g/dl (32-36); RED CELL DISTRIBUTION WIDTH CV 22.3 % (11.5-14.5); RED CELL DISTRIBUTION WIDTH SD 67.4 fL (36.4-46.3); WHITE BLOOD COUNT 3.33 K/uL (4.8-10.8)
[2018-01-04 05:27] LABS: MEAN PLATELET VOLUME 8.7 fL (7.4-10.4); PLATELET COUNT 74 K/uL (130-400)
[2018-01-04 05:33] LABS: INR 1.3 (0.9-1.1)
[2018-01-04 05:53] LABS: ALBUMIN 2.4 gm/dl (3.4-5.0); BASO % 0.6 %; BASO ABS # 0.02 K/uL (0-0.2); CALCIUM 8.1 mg/dl (8.5-10.1); CREATININE 0.8 mg/dl (0.60-1.40); EOS % 6.9 %; EOS ABS # 0.23 K/uL (0-0.5); IG# 0.01 K/uL (0.00-0.02); LYMPH % 19.5 %; LYMPH ABS # 0.65 K/uL (1.2-3.4); MONO % 16.5 %; MONO ABS # 0.55 K/uL (0.11-0.59); NEUT % 56.2 %; NEUT ABS # 1.87 K/uL (1.4-6.5); POTASSIUM 3.4 mmol/L (3.5-5.1)
[2018-01-04 05:55] LABS: TOTAL PROTEIN 5.6 gm/dl (6.4-8.2)
[2018-01-04] MEDS ORDERED: NURSING VERBAL MED ORDER ONE (06:15)
[2018-01-04] MEDS: NovoLOG INSULIN PUMP SCH ×3 (06:27→16:30)
[2018-01-04] MEDS ORDERED: DEXTROSE 50% 50 ML SYR IV ONE (06:30)
[2018-01-04] MEDS: LEVOTHYROXINE 200 MCG TAB PO SCH (06:50)
[2018-01-04] MEDS: LEVOTHYROXINE 25 MCG TAB PO SCH (06:51)
[2018-01-04 07:20] VITALS: BP 154/84; PULSE 105; TEMP 36.8; O2SAT 100
[2018-01-04 08:00] VITALS: O2SAT 100
[2018-01-04] MEDS: VALSARTAN 80 MG TAB PO SCH (08:06)
[2018-01-04] MEDS: CHOLECALCIFEROL 1000 INTER.UNIT TAB PO SCH (08:07)
[2018-01-04] MEDS: MONTELUKAST SOD 10 MG TAB PO SCH (08:07)
[2018-01-04] MEDS: TOCOPHERYL, DL-ALPHA 100 INTERUNIT CAP PO SCH (08:07)
[2018-01-04] MEDS: VENLAFAXINE HCL XR 75 MG CAPXR PO SCH (08:07)
[2018-01-04] MEDS: PANTOprazole SOD 40 MG TAB PO SCH (08:07)
--- NOTE | 2018-01-04 10:28 | Clinical Documentation Query ---
[facility]. [facility] CLINICAL DOCUMENTATION QUERY Patient is a 52 year old male admitted for evaluation of anemia and thrombocytopenia. Additionally, patient noted to be neutropenic. As appropriate, consider capture of this clinical scenario as suggested below as this impacts accurate DRG assignment. Thank you. In your clinical opinion is this patient being managed for: ( ) Pancytopenia ( ) Not Agree ( ) Other explanation of clinical findings (Please Explain) ( ) Unable to determine (Please Define) ( ) Need to Discuss The medical record reflects the following clinical findings, treatment, and risk factors. Clinical Indicators: As above Treatment: Hematology oncology consultation Risk Factors: Alcohol abuse, cirrhosis, GAVE, likely splenomegaly, possible viral illness, GI bleeding Please clarify and document your clinical opinion in the progress notes and discharge summary. Terms such as "probable", "suspected", "likely", "questionable", "possible", or "still to be ruled out" are acceptable. IF IN AGREEMENT, YOU MUST DOCUMENT ABOVE DIAGNOSTIC STATEMENT IN DAILY PROGRESS NOTES AND DISCHARGE SUMMARY. This document is not part of the patient's record. Thank You, Ulisses Enciso, RN [phone]
--- NOTE | 2018-01-04 10:30 | Clinical Documentation Query ---
WILFRIDO Basilio : CLINICAL DOCUMENTATION QUERY Patient is a 52 year old male admitted for evaluation of anemia and thrombocytopenia. Additionally, patient noted to be neutropenic. As appropriate, consider capture of this clinical scenario as suggested below as this impacts accurate DRG assignment. Thank you. In your clinical opinion is this patient being managed for: ( ) Pancytopenia (X) Not Agree ( ) Other explanation of clinical findings (Please Explain) ( ) Unable to determine (Please Define) ( ) Need to Discuss I think pancytopenia would be appropriate if we thought he had decreased production of all cell lines. However, he appears to have an acute GI bleed, which may or may not be the reason for his thrombocytopenia. Likely, he has decreased plt production secondary to his alcohol intake (although this is just a theory), and decreased HgB (anemia from acute bleed) rather than secondary to decreased production. The medical record reflects the following clinical findings, treatment, and risk factors. Clinical Indicators: As above Treatment: Hematology oncology consultation Risk Factors: Alcohol abuse, cirrhosis, GAVE, likely splenomegaly, possible viral illness, GI bleeding Please clarify and document your clinical opinion in the progress notes and discharge summary. Terms such as "probable", "suspected", "likely", "questionable", "possible", or "still to be ruled out" are acceptable. IF IN AGREEMENT, YOU MUST DOCUMENT ABOVE DIAGNOSTIC STATEMENT IN DAILY PROGRESS NOTES AND DISCHARGE SUMMARY. This document is not part of the patient's record. Thank You, Ulisses Enciso, SCAR [phone]
[2018-01-04 10:52] VITALS: Ht 175.3 cm; Wt 134.4 kg
[2018-01-04] MEDS ORDERED: POTASSIUM CHLR 10 MEQ / WTR 100 ML IV STA (11:02)
--- NOTE | 2018-01-04 15:31 | Endo History and Physical ---
History & Physical Date of Service: Jan 04, 2018. Chief Complaint: anemia Referring Physician: Dr Taylor History of Present Illness for EGD Past Surgical History Hx Cardiac Surgery: No Hx Internal Defibrillator: No Hx Pacemaker: No Hx Abdominal Surgery: Yes (UMBILICAL HERNIA X 2, SANDI) Hx Post-Op Nausea and Vomiting: No Hx Cancer Surgery: No Hx Thoracic Surgery: No Hx Orthopedic: Yes (RT RCR) Hx Urinary Tract Surgery: No Social History Smoking Status: Unknown if Ever Smoked Smokeless Tobacco Use: No Hx Substance Use: No Hx Alcohol Use: Yes (Wine) Allergies Coded Allergies: Penicillins (Verified Allergy, Intermediate, FACIAL RASH, 11/19/17) Hydrochlorothiazide w/Triamterene (Verified Allergy, Unknown, UNKNOWN, ) Simvastatin (Verified Allergy, Unknown, UNKNOWN, 01/01/18) Rosuvastatin (Verified Adverse Reaction, Unknown, MUSCLE PAIN, 11/19/17) Current Medications Reported Home Medications Medications Dose Route/Sig Max Daily Dose Days Date Category Ativan (Lorazepam) 0.5 Mg Tab 0.5 Mg PO BID PRN 01/01/18 Reported Singulair (Montelukast Sodium) 10 Mg Tab 10 Mg PO DAILY 01/01/18 Reported Venlafaxine Extended Rel (Venlafaxine Hcl) 75 Mg Cap 75 Mg PO DAILY 01/01/18 Reported Vitamin D (Cholecalciferol) 2,000 Unit Cap 2,000 Units PO QAM 01/01/18 Reported Pravachol (Pravastatin Sodium) 20 Mg Tab 20 Mg PO HS 01/01/18 Reported Levothyroxine Sodium 200 Mcg Tab 200 Mcg PO DAILY 90 01/01/18 Reported Levothyroxine Sodium 25 Mcg Tab 25 Mg PO DAILY 90 01/01/18 Reported Tiazac (Diltiazem HCl) 120 Mg Capcr 120 Mg PO QPM 01/01/18 Reported Tessalon Perles (Benzonatate) 100 Mg Cap 1-2 Cap PO TID PRN 5 01/01/18 Reported Zithromax (Azithromycin) 250 Mg Tab 250 Mg PO DAILY 01/01/18 Reported Aspirin Ec (Aspirin) 81 Mg Tab 81 Mg PO DAILY 01/01/18 Reported Lexapro (Escitalopram Oxalate) 20 Mg Tab 20 Mg PO QAM 11/19/17 Reported Prilosec (Omeprazole) 40 Mg Cap 40 Mg PO QAM 11/19/17 Reported Vitamin E (Tocopheryl Acet,Dl-Alpha) 100 Interunit Cap 1 Cap PO DAILY 10/02/17 Reported Co Q 10 (Coenzyme Q10 (Ubidecarenone)) 100 Mg Cap 100 Mg PO DAILY 10/01/17 Reported Diovan (Valsartan) 320 Mg Tab 320 Mg PO QAM 01/08/17 Reported Nasacort Allergy 24Hr (Triamcinolone Acetonide (Nasal) 55 Mcg/Act Spr 2 [place] PERLA QAM 01/08/17 Reported Multivitamin (Multiple Vitamin) 1 Tab Tab 1 Tab PO QAM 01/08/17 Reported Zyrtec (Cetirizine HCl) 10 Mg Tab 10 Mg PO QAM 10/20/16 Reported novoLOG INSULIN PUMP (Insulin Aspart) 1 Ea Inj 1 Ea N/A UD 10/20/16 Reported Vital Signs Weight (Kilograms): 134.400 Height (Feet): 5 Height (Inches): 9.00 Date Time Temp Pulse Resp B/P (MAP) Pulse Ox O2 Delivery O2 Flow Rate FiO2 01/04/18 15:10 36.5 98 20 144/83 (103) 99 Room Air 01/04/18 08:00 100 Room Air 01/04/18 07:20 36.8 105 20 154/84 (107) 100 Room Air 01/04/18 00:30 Room Air 01/03/18 23:31 36.6 112 18 156/78 (104) 96 Room Air 01/03/18 16:00 Room Air 01/03/18 16:00 37.0 104 18 131/72 (91) 96 Room Air Physical Exam General Appearance: WD/WN Respiratory/Chest: Respiratory effort: no dyspnea Cardiovascular: Heart Auscultation: RRR Abdomen: Inspection & Palpation: soft Assessment and Plan Anemia for EGD
[2018-01-04 15:33] VITALS: BP 148/82; PULSE 99; TEMP 36.7; O2SAT 100
--- NOTE | 2018-01-04 15:48 | Discharge Instructions ---
Endoscopy Patient Instructions Date / Procedure(s) Performed Jan 04, 2018. EGD Allergy Information Coded Allergies: Penicillins (Verified Allergy, Intermediate, FACIAL RASH, 11/19/17) Hydrochlorothiazide w/Triamterene (Verified Allergy, Unknown, UNKNOWN, ) Simvastatin (Verified Allergy, Unknown, UNKNOWN, 01/01/18) Rosuvastatin (Verified Adverse Reaction, Unknown, MUSCLE PAIN, 11/19/17) Discharge Date / Findings Jan 04, 2018. Portal HTN gastropathy, mild esophageal varices Medication Instructions Restart Stopped Medication(s): resume meds Current Inpatient Medications Medications (Trade) Dose Ordered Sig/Mike Route Start Time Stop Time Status Last Admin Dose Admin Magnesium Hydroxide (Milk Of Magnesia Susp) 30 ml Q12H PRN PO 01/01/18 20:30 01/31/18 20:29 Ondansetron HCl (Zofran Inj) 4 mg Q6H PRN IV 01/01/18 20:30 01/31/18 20:29 Polyethylene (Miralax Powder Packet) 17 gm DAILY PRN PO 01/01/18 20:30 01/31/18 20:29 Glucose (Glucose 40% Gel) 15-30 GRAMS 15 GRAMS... UD PRN PO 01/01/18 22:30 01/31/18 22:29 Glucose (Glucose Chew Tab) 4-8 Tablets 4 Tabl... UD PRN PO 01/01/18 22:30 01/31/18 22:29 Dextrose (Dextrose 50% 50ML Syringe) 25-50ML OF 50% DW IV FOR... UD PRN IV 01/01/18 22:30 01/31/18 22:29 01/03/18 16:20 50 ML Glucagon (Glucagon Inj) 1 mg UD PRN SQ 01/01/18 22:30 01/31/18 22:29 Menthol (Nice Amaury) 1 amaury PRN PRN AMAURY 01/02/18 01:15 02/01/18 01:14 01/02/18 01:24 1 AMAURY Pantoprazole Sodium (Protonix Tab) 40 mg QAM PO 01/03/18 09:00 02/02/18 08:59 01/04/18 08:07 40 MG Folic Acid (Folvite Tab) 1 mg QAM PO 4/22/18 09:00 02/02/18 08:59 01/04/18 08:07 1 MG Insulin Aspart (novoLOG INSULIN PUMP) 1 ea ACHS N/A 01/02/18 18:14 02/01/18 18:13 01/03/18 21:00 1 EA Insulin Aspart (novoLOG ASPART) SLIDING SCALE PRN PRN SC 01/02/18 18:15 02/01/18 18:14 Diltiazem HCl (TIAzac CAP) 120 mg QPM PO 01/03/18 21:00 02/02/18 20:59 01/03/18 21:53 120 MG Levothyroxine Sodium (Synthroid Tab) 25 mcg DAILYBB PO 01/03/18 06:30 02/02/18 06:29 01/04/18 06:51 25 MCG Levothyroxine Sodium (Synthroid Tab) 200 mcg DAILYBB PO 01/03/18 06:30 02/02/18 06:29 01/04/18 06:50 200 MCG Montelukast Sodium (Singulair Tab) 10 mg DAILY PO 01/03/18 09:00 02/02/18 08:59 01/04/18 08:07 10 MG Pravastatin Sodium (Pravachol Tab) 20 mg HS PO 01/03/18 21:00 02/02/18 20:59 01/03/18 21:53 20 MG mm-Zgvfb-Qbxeigsuyl Acetate (Vitamin E Cap) 100 interunit DAILY PO 01/03/18 09:00 02/02/18 08:59 01/04/18 08:07 100 INTERUNIT Valsartan (Diovan Tab) 320 mg QAM PO 01/03/18 09:00 02/02/18 08:59 01/04/18 08:06 320 MG Venlafaxine HCl (effeXOR EXTENDED REL CAP) 75 mg DAILY PO 01/03/18 09:00 02/02/18 08:59 01/04/18 08:07 75 MG Cholecalciferol (Vitamin D Tab) 2,000 inter.unit QAM PO 01/03/18 09:00 02/02/18 08:59 01/04/18 08:07 2,000 INTER.UNIT Lorazepam (Ativan Tab) PRN Dosing -Active Protocol UD PRN PO 01/03/18 00:30 02/02/18 00:29 01/03/18 14:29 1 MG Provider Instructions Activity Restrictions - No exercising or heavy lifting for 24 hours. - Do not drink alcohol the day of the procedure. - Do not drive a car or operate machinery until the day after the procedure. - Do not make any important decisions or sign important papers in 24 hours after the procedure. Following Day: - Return to full activity which may include returning to work/school. Diet Start your diet with liquids and light foods (jello, soup, juice, toast). Then eat your usual diet if not nauseated. Treatment For Common After Affects For mild abdominal pain, bloating, or excessive gas: - Rest - Eat lightly - Lie on right side Follow-Up Information Follow-up with as scheduled Anesthesia Information What You Should Know You have had a procedure that required some medicine to reduce anxiety and discomfort. This treatment is called moderate sedation. After receiving the treatment, you may be sleepy, but you will be able to breathe on your own. The effects of the treatment may last for several hours. Follow these instructions along with Activity/Diet recommendations noted above: * Do NOT do anything where dizziness or clumsiness would be dangerous. * Rest quietly at home today, then you can be up and about tomorrow. * Have a responsible person stay with you the rest of today. * You may have had an I.V. today. If so, you may take the dressing off later today. Recommendations Call your doctor if: * Trouble breathing * Continuous vomiting for more than 24 hours * Temperature above 101 degrees * Severe abdominal pain or bloating * Pain not relieved by pain medicine ordered * There is increased drainage or redness from any incision * A large amount of rectal bleeding greater than 2-3 tablespoons. (If you had a polyp/s removed or have hemorrhoids, a small amount of blood - from the rectum is to be expected.) * You have any unanswered questions or concerns. IN THE EVENT OF A SERIOUS EMERGENCY, GO TO THE NEAREST EMERGENCY ROOM Your discharge instructions were prepared by provider Frankie Berman. Patient Instructions Signature Page Brad Websterquist Patient (or Guardian) Signature/Date: I have read and understand the instructions given to me by my caregivers. Caregiver/RN/Doctor Signature/Date: The above-named patient and/or guardian has received patient instructions on this date. + Original Patient Signature Page (only) stays with chart. Please make copy for patient.
--- NOTE | 2018-01-04 15:52 | GI REPORT ---
Procedure Date: 01/04/2018 3:40 PM Procedure: Upper GI endoscopy Indications: Iron deficiency anemia secondary to chronic blood loss Medicines: Propofol total dose 150 mg IV, Lidocaine 80 mg IV Complications: No immediate complications. Estimated Blood Loss: Estimated blood loss: none. Procedure: Pre-Anesthesia Assessment: - Prior to the procedure, a History and Physical was performed, and patient medications, allergies and sensitivities were reviewed. The patient's tolerance of previous anesthesia was reviewed. - The risks and benefits of the procedure and the sedation options and risks were discussed with the patient. All questions were answered and informed consent was obtained. After obtaining informed consent, the endoscope was passed under direct vision. Throughout the procedure, the patient's blood pressure, pulse, and oxygen saturations were monitored continuously. The scope was introduced through the mouth, and advanced to the second part of duodenum. The upper GI endoscopy was accomplished without difficulty. The patient tolerated the procedure well. Findings: Grade I varices were found in the lower third of the esophagus. The Z-line was regular and was found 40 cm from the incisors. Diffuse mildly erythematous mucosa without bleeding was found in the entire examined stomach. The examined duodenum was normal. Impression: - Grade I esophageal varices. - Z-line regular, 40 cm from the incisors. - Erythematous mucosa in the stomach. - Normal examined duodenum. - No specimens collected. Recommendation: - Return patient to hospital packer for ongoing care. Frankie Berman M.D. Frankie Berman MD 01/04/2018 3:51:33 PM This report has been signed electronically. Note Initiated On: 01/04/2018 3:40 PM I attest to the content of the Intraoperative Record and orders documented therein, exceptions below
[2018-01-04] MEDS ORDERED: PROPOFOL IV EMULSION 10 MG/ML 20 ML VIAL IV ONE (15:57)
[2018-01-04] MEDS ORDERED: LIDOCAINE HCL 2% 2 ML VIAL (20MG/ML) ONE (15:57)
--- NOTE | 2018-01-04 16:05 | Anesthesiology Progress Note ---
Anesthesia Post Op Note Date & Time Jan 04, 2018 at 16:05 Vital Signs Pain Intensity: 0.0 Vital Signs Past 12 Hours Date Time Temp Pulse Resp B/P (MAP) Pulse Ox O2 Delivery O2 Flow Rate FiO2 01/04/18 15:53 92 18 96/49 (65) 95 Room Air 01/04/18 15:33 36.7 99 20 148/82 (104) 100 Room Air 01/04/18 15:10 36.5 98 20 144/83 (103) 99 Room Air 01/04/18 08:00 100 Room Air 01/04/18 07:20 36.8 105 20 154/84 (107) 100 Room Air Notes Mental Status: alert / awake / arousable, participated in evaluation Pt Amnestic to Procedure: Yes Nausea / Vomiting: adequately controlled Pain: adequately controlled Airway Patency, RR, SpO2: stable & adequate BP & HR: stable & adequate Hydration State: stable & adequate Anesthetic Complications: no major complications apparent
--- NOTE | 2018-01-04 17:27 | PROGRESS NOTE ---
DATE: 01/04/2018 SUBJECTIVE: The patient underwent an EGD today for evaluation of his anemia. The patient was found to have a single mild esophageal varix in the distal third of the esophagus. This flattened easily with insufflation and was obviously not at risk for bleeding. In the stomach, there was diffuse, mild portal hypertensive gastropathy with no signs of active or past bleeding. The duodenum was normal. IMPRESSION: The patient has got portal hypertensive gastropathy. It is possible that this was bleeding initially and has stopped. The patient will be started on p.o. intake and followed up as an outpatient.
--- NOTE | 2018-01-04 17:31 | Discharge Instructions ---
Discharge Instructions Date of Service Jan 04, 2018. 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 Instructions / Follow-Up Instructions / Follow-Up Mr. Castañeda you were admitted for low hemoglobin/anemia and platelet count. Given you have liver fibrosis with gastric angiectasias/varices there was concern for GI bleed. You had an endoscopy done today which found grade I varices and inflamed stomach mucosa which could explain your anemia. However there was no active blood loss. Per Dr. Berman, you need to follow up with GI for additional care. Please follow the following instructions: Stop taking aspirin 81mg as it can increase your risk for GI bleeding (your primary care provider will decide whether it is safe for you to restart this medication) Take Omeprazole 40mg daily Take Propranolol 10mg once daily to help prevent bleeding from your gastric varices (please take it easy and move slowly when you first take propranolol to avoid lightheadedness with sitting/standing from a seated position) Repeat lab work (Script provided for CBC) in 48 hours Follow up with Dr. Jimenez in 2 days Schedule follow up with Dr. Berman in 2-3 weeks (we will help arrange that for you) See Dr. Jimenez or go to the nearest emergency room if having chest pain, shortness of breath, increased fatigue, dizziness, vomiting (especially if bloody), or notice bright red blood in stools or dark stools Stop taking prescribed antibiotic for cough, Azithromycin Please continue taking other home medications as prescribed Current Hospital Diet Patient's current hospital diet: Diabetes Type 2 Diet Discharge Diet Recommended Diet: Diabetes Type 1 Diet Procedures Procedures Performed: EGD Pending Studies Studies pending at discharge: no Medical Emergencies . Who to Call and When: Medical Emergencies: If at any time you feel your situation is an emergency, please call 911 immediately. . Non-Emergent Contact Non-Emergency issues call your: Primary Care Provider . . "Provider Documentation" section prepared by Timothy Yeh. .
[2018-01-04] MEDS ORDERED: PROP10TA7 PO ×2 (17:42→17:43)
[2018-01-04] MEDS ORDERED: FERR325T5 PO (17:45)
[2018-01-04 18:10] VITALS: BP 121/73; PULSE 94; TEMP 36.7; O2SAT 98
--- NOTE | 2018-01-04 18:22 | Discharge Summary ---
Discharge Summary Date of Service Jan 04, 2018. Discharge Summary Admission Date: Jan 01, 2018 at 20:31 Discharge Date: Jan 04, 2018 Discharge Disposition: Home Principal Diagnosis: Anemia 2/2 GI bleed Problems/Secondary Diagnoses: thromocytopenia Angioectasias Liver fibrosis Chronic alcohol use Cough Diabetes HTN HLD Hypothyroidism Immunizations: Have You Had Influenza Vaccine: Unknown History of Tetanus Vaccine?: Unknown History of Pneumococcal: Unknown History of Hepatitis B Vaccine: Unknown Procedures: EGD 01/04/1818 Grade 1 varices lower third of esophagus and diffuse mild erythematous mucosa of stomach without active bleeding; normal duodenum DUPLEX PORTAL HEPATIC VEINS CLINICAL HISTORY: increasing billirubin, liver cirrhosis ?portal vein thrombosis hepatic cirrhosis TECHNIQUE: Doppler COMPARISON STUDY: CT 01/02/2018 FINDINGS: Limited exam as the patient was not able to cooperate. All major portal and hepatic venous structures appear patent. No evidence for thrombosis. IMPRESSION: Limited exam showing no vascular abnormality of the portal and hepatic venous structures. [~ rep ct add3]] ABD/PELVIS IV AND ORAL CONT CT DOSE: 1477.32 mGy.cm HISTORY: Pain eval for splenomegaly and liver fibrosis TECHNIQUE: Multiaxial CT images of the abdomen and pelvis were performed following the use of intravenous and oral contrast. A dose lowering technique was utilized adhering to the principles of ALARA. COMPARISON STUDY: None. FINDINGS: Small right and to a lesser extent left pleural effusion. Right basilar atelectatic change. Findings consistent with hepatic cirrhosis. Moderate perihepatic ascites. Several upper abdominal varices. Mild splenomegaly. Small amount of perisplenic ascites. Mild body wall anasarca. Nonspecific small bowel enteritis. Nonobstructive colonic bowel pattern. IMPRESSION: 1. Mild abdominal and pelvic ascites. 2. Small bowel enteritis. 3. Scattered varices. 4. Mild splenomegaly. 5. Nonobstructive bowel pattern. 6. Anasarca. 7. Bilateral pleural effusions with right basilar atelectasis. [~ rep ct add3]] TWO VIEW CHEST CLINICAL HISTORY: Cough. FINDINGS: AP and lateral chest radiographs are compared to study dated 10/20/2016. The AP view is mildly degraded by patient rotation. The heart is top normal for projection. Mild pulmonary vascular congestion is identified. There are small pleural effusions with bibasilar atelectasis, only seen on the lateral projection. There is no pneumothorax. The skeletal structures are osteopenic. The bony thorax appears intact. Degenerative changes noted throughout the thoracic spine. Cholecystectomy clips are noted. IMPRESSION: 1. There is mild pulmonary vascular congestion. 2. There are small pleural effusions with associated atelectasis. Consultations: Gastroenterology Hematology/Oncology Medication Reconciliation New Medications: Ferrous Sulfate (Ferrous Sulfate) 325 Mg Tab 1 TAB PO DAILY for 30 Days, #30 TAB please take after meals Propranolol (Inderal) 10 Mg Tab 10 MG PO DAILY for 30 Days, #30 TAB Continued Medications: Benzonatate (Tessalon Perles) 100 Mg Cap 1-2 CAP PO TID PRN for Cough for 5 Days, #60 CAP Cetirizine (Zyrtec) 10 Mg Tab 10 MG PO QAM, TAB Cholecalciferol (Vitamin D) 2,000 Unit Cap 2000 UNITS PO QAM Coenzyme Q10 (Ubidecarenone) (Co Q 10) 100 Mg Cap 100 MG PO DAILY Diltiazem Hcl Ext Rel (Tiazac) 120 Mg Capcr 120 MG PO QPM, CAP Escitalopram Oxalate (Lexapro) 20 Mg Tab 20 MG PO QAM, TAB Insulin Aspart (novoLOG INSULIN PUMP ) 1 Ea Inj 1 EA N/A UD, EA Levothyroxine Sodium (Levothyroxine Sodium) 25 Mcg Tab 25 MG PO DAILY for 90 Days, TAB 3 Refills Levothyroxine Sodium (Levothyroxine Sodium) 200 Mcg Tab 200 MCG PO DAILY for 90 Days, #90 TAB 3 Refills Lorazepam (Ativan) 0.5 Mg Tab 0.5 MG PO BID PRN for Anxiety, TAB Montelukast Sodium (Singulair) 10 Mg Tab 10 MG PO DAILY, TAB Multiple Vitamin (Multivitamin) 1 Tab Tab 1 TAB PO QAM, TAB Omeprazole (Prilosec) 40 Mg Cap 40 MG PO QAM, CAP Pravastatin (Pravachol ) 20 Mg Tab 20 MG PO HS, TAB Tocopheryl Acet,Dl-Alpha (Vitamin E) 100 Interunit Cap 1 CAP PO DAILY Triamcinolone Acetonide (Nasal (Nasacort Allergy 24Hr) 55 Mcg/Act Spr 2 SPRAY PERLA QAM Valsartan (Diovan) 320 Mg Tab 320 MG PO QAM, TAB Venlafaxine Hcl (Venlafaxine Extended Rel) 75 Mg Cap 75 MG PO DAILY, CAP Discontinued Medications: Aspirin (Aspirin Ec) 81 Mg Tab 81 MG PO DAILY Azithromycin (Zithromax) 250 Mg Tab 250 MG PO DAILY, #4 TAB Discharge Exam Review of Systems: Constitutional: No fever, No chills Respiratory: No shortness of breath Cardiovascular: No chest pain Abdomen: No pain, No nausea, No vomiting Genitourinary - Female: No dysuria Physical Exam: General Appearance: no apparent distress, + pertinent finding (walking about in the room) Neck: supple Respiratory/Chest: lungs clear, normal breath sounds Cardiovascular: regular rate, rhythm, no murmur Abdomen / GI: normal bowel sounds, non tender, soft Extremities: + swelling (2+ pretibial edema (chronic)) Neurologic/Psychiatric: alert, oriented x 3 Hospital Course 52 yo male was referred to the emergency department for abnormal labs from oncologist's office - hemoglobin of 7.2 and platelet count of 56. PMH: Diabetes, hypertension, hyponatremia, hypothyroidism, depression. Anemia and thrombocytopenia: Hemoglobin dropped to 6.6 and platelets to 49. Received 2 units of pRBCs on 01/02. Hemoccult positive in the ER as well. Hematology was consulted. His anemia is thought to be due to GI bleeding in the context of gastric angiectasias and GAVE. His thrombocytopenia is potentially due to multiple factors: immune mediated vs viral vs alcohol vs bone marrow suppression as sources. Liver ultrasound to evaluate for thrombosis: no portal or hepatic venous structural abnormalities noted. -dced on ferrous sulphate 325mg daily -Repeat CBC w/t diff and platelets ordered (script provided) for 48 hours post discharge -Follow up with Dr. Jimenez in 3-5 days GI bleeding: Likely upper GI given history of gastric angioectasias. Received protonix drip then p.o. No clear evidence of ongoing massive GI bleed. Remained hemodynamically stable. Received two units PRBCs on . Hb levels improved/stable. GI consulted. EGD: Grade 1 varices lower third of esophagus and diffuse mild erythematous mucosa of stomach without active bleeding; normal duodenum. CT of his abdomen demonstrates multiple sequelae of hepatic fibrosis. -dced on propranolol 10mg daily -continue home omeprazole 40mg daily -instructed to stop aspirin 81mg daily (likely for primary prevention; PCP please discuss re-initiation as indicated) Hyponatremia: Na 125, improved to 131, possibly secondary to potomania. Was also recently started on Effexor but has a history of hyponatremia prior to starting this. Transaminitis: AST of 181, ALT at 55, alk phos of 252. These levels are improving. History of liver fibrosis likely secondary to alcohol abuse. Chronic alcohol use: Patient states he drinks about 20 oz wine/day. AWSS protocol with ativan prn. Required some p.o. dosing. Patient states his last period of abstinence was for two weeks back in April and denies any withdrawal symptoms at that time. Cough: Patient notes about three weeks with cough (prior to admit) and recent use of a azithromycin for the past 48 hours. Chest x-ray here showed some mild pulmonary vascular congestion with small pleural effusion but otherwise no evidence of infiltrate. He does not have an ongoing cough during interviews. Held azithromycin during admission and dced on discharge Diabetes: Controlled with the patient's on insulin pump. Offered assistance as needed. Hypertension: Continued diovan and diltiazem Hyperlipidemia: Continued pravastatin Hypothyroidism: Continue Synthroid Code status: Full DVT prophy: SCD's Resident Physician Supervision Note: I was present with Dr. Yeh] during the history and exam. I discussed the case with the resident and agree with the findings and plan as documented in the note. Any exceptions or clarifications are listed here: The patient was fairly adamant regarding discharge this afternoon post EGD. Emphasized need for follow up with both his PCP and GI as noted above. Recommend CBC in 48 hours. If s/s of recurrent bleeding, recommend return to the ED. Documented By: Scotty Maciel Total Time Spent: Greater than 30 minutes This includes examination of the patient, discharge planning, medication reconciliation, and communication with other providers. Total time 45 minutes. Discharge Instructions Please refer to the electronic Patient Visit Report (Discharge Instructions) for additional information. Additional Copies To Charles Jimenez M.D.
== END 2018-01-04 18:28 | disposition home or self-care (01) | DRG 811 ==
LOC: C.EDB 17:10 → C.MED 20:31 → ENRESERV 21:02 → C.MS2W 01-03 16:00
PROVIDERS: ADMIT Family Medicine; ATTEND Family Medicine
PROC: 0DJ08ZZ Inspection of Upper Intestinal Tract, Via Natural or Artificial Opening Endoscopic (ICD-10-PCS; principal; 2018-01-04 15:06)
DX: D64.9 Anemia, unspecified (principal); K31.811 Angiodysplasia of stomach and duodenum with bleeding; K92.2 Gastrointestinal hemorrhage, unspecified; E87.1 Hypo-osmolality and hyponatremia; K76.6 Portal hypertension; I85.00 Esophageal varices without bleeding; Z83.3 Family history of diabetes mellitus; Z82.49 Family history of ischemic heart disease and other diseases of the circulatory system; Z79.82 Long term (current) use of aspirin; Z79.4 Long term (current) use of insulin; Z88.0 Allergy status to penicillin; Z88.5 Allergy status to narcotic agent; E11.9 Type 2 diabetes mellitus without complications; I10 Essential (primary) hypertension; E03.9 Hypothyroidism, unspecified; F32.9 Major depressive disorder, single episode, unspecified; D69.6 Thrombocytopenia, unspecified; R74.0 Nonspecific elevation of levels of transaminase and lactic acid dehydrogenase [LDH]; Z72.89 Other problems related to lifestyle

== ENCOUNTER 2018-04-16 23:54 | Emergency (ER) | payer OTHER ==
[~2018-04-16 23:54] MED LIST changes: +BENZ100C84 PO; +CHOL200010 PO; -DILT-115 PO; +DILT120C68 PO; +FERR325T5 PO; -HYDR25CA PO; +LEVO200T6 PO; +LEVO25TA5 PO; -LEVO300T31 PO; +LORA-741 PO; +MONT1TAB3 PO; +PRAV20TA PO; +PROP10TA7 PO; +VENL75CA73 PO; -VITAMIN PO
--- NOTE | 2018-04-17 | EMERGENCY ROOM VISIT NOTE ---
History Report prepared by Anuradha: Sabi Bejarano Under the Supervision of: Dr. Carmine Corado M.D. 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 As per EMS, the patient's found him unresponsive and tried giving the patient bananas and juice as he has a past history of diabetes. 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 They note that en route, they did chest compressions and suctioned a lot of of vomit out of the patients mouth. Patient received 2 amps Epi, Nasal/IV Narcan and intubation. BSG by EMS unremarkable. notes that patient worsening confusion and tiredness throughout the day with minimal appetite. She tried getting him to eat a banana but developed worsening confusion/mental status and thus EMS called. She denies he has been drinking today. She is unsure whether he may have overdosed on his medications. She has no further information at this time. 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 Past Medical & Surgical Medical Problems: (1) PEPE, hyponatremia (2) Diabetes (3) Heart disease Surgical Problems: (1) S/P cholecystectomy (2) S/P hernia repair (3) Status post hernia repair Family History Cancer Diabetes mellitus FHx: cancer FHx: diabetes mellitus High blood pressure Hypertension Social History Smokeless Tobacco Use: No Alcohol Use: occasionally Housing Status: lives with significant other Occupation Status: employed Current/Historical Medications Scheduled Cetirizine (Zyrtec), 10 MG PO QAM Cholecalciferol (Vitamin D), 2,000 UNITS PO QAM Coenzyme Q10 (Ubidecarenone) (Co Q 10), 100 MG PO DAILY Diltiazem Hcl Ext Rel (Tiazac), 120 MG PO QPM Escitalopram Oxalate (Lexapro), 20 MG PO QAM Ferrous Sulfate (Ferrous Sulfate), 1 TAB PO DAILY Insulin Aspart (novoLOG INSULIN PUMP ), 1 EA N/A UD Levothyroxine Sodium (Levothyroxine Sodium), 25 MG PO DAILY Levothyroxine Sodium (Levothyroxine Sodium), 200 MCG PO DAILY Montelukast Sodium (Singulair), 10 MG PO DAILY Multiple Vitamin (Multivitamin), 1 TAB PO QAM Omeprazole (Prilosec), 40 MG PO QAM Pravastatin (Pravachol ), 20 MG PO HS Propranolol (Inderal), 10 MG PO DAILY Tocopheryl Acet,Dl-Alpha (Vitamin E), 1 CAP PO DAILY Triamcinolone Acetonide (Nasal (Nasacort Allergy 24Hr), 2 SPRAY PERLA QAM Valsartan (Diovan), 320 MG PO QAM Venlafaxine Hcl (Venlafaxine Extended Rel), 75 MG PO DAILY Scheduled PRN Benzonatate (Tessalon Perles), 1-2 CAP PO TID PRN for Cough Lorazepam (Ativan), 0.5 MG PO BID PRN for Anxiety Allergies Coded Allergies: Penicillins (Verified Allergy, Intermediate, FACIAL RASH, 11/19/17) Hydrochlorothiazide w/Triamterene (Verified Allergy, Unknown, UNKNOWN, ) Simvastatin (Verified Allergy, Unknown, UNKNOWN, 01/01/18) Rosuvastatin (Verified Adverse Reaction, Unknown, MUSCLE PAIN, 11/19/17) Physical Exam Vital Signs Date Time Temp Pulse Resp B/P (MAP) Pulse Ox O2 Delivery O2 Flow Rate FiO2 04/17/18 00:03 0 04/17/18 00:01 0 Physical Exam GENERAL: Unresponsive, GCS 3T. EYES: No scleral icterus, fixed mid pupils with dull corneas ENT: Mucous membranes moist, no nasal congestion, scant blood in oropharynx, front teeth missing NECK: Trachea is midline, no masses, no swelling. RESPIRATORY: Minimal chest rise with ventilation, no respiratory effort. CARDIOVASCULAR: No cardiac activity appreciated. BACK: No acute findings when rolled. Midline spine without step offs GASTROINTESTINAL: Abdomen modestly distended but soft with bowel sounds on bagging. No masses appreciated. EXTREMITIES: Mottled. Edema bilateral lower leg. No pulses appreciated. NEUROLOGIC: Unresponsive, GCS 3T. SKIN: No rash, no jaundice. Medical Decision & Procedures Procedure Endotracheal Intubation Indication: CardioPulmonary Arrest. Concern EMS ET tube no longer in proper position. EMS ET Tube removed. The patient was being bagged by respiratory with BVM. Suction, airway equipment, respiratory equipment, and appropriate personnel were prepared prior to the initiation of the procedure. Patient unresponsive GCS 3. After observing the clinical benefit of the medications, the airway was easily visualized utilizing a #4 Glidescope. A 7.5 size ETT tube was placed atraumatically to 24 cm using standard technique. The cuff inflated without signs of malfunction. There were bilateral breath sounds, positive colormetric change, no gastric sounds, a good capnography waveform, and post procedure pulse oximetry was unable to be obtained due to code. No complications during intubation. ED Course 2355: The patient was evaluated in room B1. 0003: TOD was called at 0003 [id number]: I spoke to the patient's at this time. She states her has been distant recently and refused help. She reports he is a previous alcoholic but denies any concerns he had alcohol in the house. She states she would not know if he overdosed on his medications. Medical Decision 53 yr old male arrives in cardiopulmonary arrest via EMS. Apparently gradually worsening mental status and weakness this evening to point of agonal respirations and EMS called by . Arrested in front of EMS. ACLS with intubation, Epi, Narcan for >45 minutes by time of arrival to ED. On arrival patient unresponsive in asystole with no cardiac activity nor neuro response. Poor lung sounds on auscultation thus ET tube removed and re-intubated. Of note large piece of banana stuck on end of EMS ET tube and no front teeth with some mild blood noted throughout oropharynx prior to intubation here. Shortly after intubation large amount blood poured out of oropharynx which could be GI bleed. Query whether EMS ET tube got dislodged and was blocking blood from coming up oropharynx until it was removed here. Given Epi on arrival and excellent compressions to point where good pleth on O2 sats which revealed O2 sats in teens and 20s. BSG by EMS OK, Narcan already given copiously. No evidence that after this prolonged cardiac arrest he would have any meaningful recovery regardless of initial cause. Bedside US confirms no cardiac movement. Continued Asystole on monitor. Still no neuro deficits. Patient declared at 12:03am. I discussed this with and made her aware prior to bringing her back to be with . Charge nurse with me when I informed her that he had . Pt's did note his long history of alcoholism as well as worsening depression, though doesn't think he was drinking tonight and is unsure whether he might have overdosed on his medications. We discussed possibility overdose but that primary cardiac, congestive failure, PE, GI bleed , electrolyte abnormalities etc could all have lead to this as well. Head Trauma GCS Score: 3 Medication Reconcilliation Current Medication List: was personally reviewed by me Impression Primary Impression: Cardiac arrest Critical Care I have personally spent greater than 30 minutes of critical care time in the direct management of this patient. This was a life/limb threatening event. This includes time spent evaluating patient, direct bedside care, chart review, placing orders, interpretation of diagnostic studies, discussion with consultants, patient, and family members, as well as other required patient management activities. This 30 minutes is in excess of all separately billable procedures. Scribe Attestation The scribe's documentation has been prepared under my direction and personally reviewed by me in its entirety. I confirm that the note above accurately reflects all work, treatment, procedures, and medical decision making performed by me. Departure Information Dispostion (TOD was called at 0003) Patient Instructions My [facility]
[2018-04-17 00:03] VITALS: PULSE 0
== END 2018-04-17 01:30 | disposition expired ==
LOC: EDBD 23:54 → C.EDB 04-17 00:02 → C.EDA 04-17 01:30
DX: I46.9 Cardiac arrest, cause unspecified (principal); E11.9 Type 2 diabetes mellitus without complications; F10.20 Alcohol dependence, uncomplicated; Z90.49 Acquired absence of other specified parts of digestive tract; Z80.9 Family history of malignant neoplasm, unspecified; Z83.3 Family history of diabetes mellitus; Z82.49 Family history of ischemic heart disease and other diseases of the circulatory system; Z79.899 Other long term (current) drug therapy; Z79.4 Long term (current) use of insulin; Z96.41 Presence of insulin pump (external) (internal); Z88.0 Allergy status to penicillin; Z88.8 Allergy status to other drugs, medicaments and biological substances